=== PATIENT | male | born 1940 | race Two or more races ===

== ENCOUNTER 2025-04-06 19:08 | Inpatient (IN) | payer OTHER ==
[~2025-04-06] VITALS: Ht 182.9 cm; Wt 105.1 kg
[2025-04-06 19:25] VITALS: PULSE 119; RESP 22; O2SAT 91
[2025-04-06 19:51] LABS: Urine Protein, UAD 1+ (Negative); Urine WBC Clumps PRESENT /hpf (None Seen)
[2025-04-06 19:52] LABS: Hematocrit 41.0 % (41.0-53.0); Hemoglobin 13.9 g/dL (13.5-17.5); Mean Corpuscular Hemoglobin 34.8 pg (28.0-32.0); Mean Corpuscular Volume 102.8 fL (80.0-100.0); Nucleated Red Blood Cells % 0.0 %
--- NOTE | 2025-04-06 19:58 | DVH ---
EXAM: XY CHEST PORTABLE CLINICAL HISTORY: SOB TECHNIQUE: Single AP view of the chest WID: COMPARISON: None FINDINGS: Lines and tubes: There is a left-sided dual lead pacemaker with lead tips projecting over the right a trium and right ventricle. Chest: The heart size and pulmonary vasculature is within normal limits. Calcified plaque projects over the aortic arch. No pleural effusion, pneumothorax, or consolidation. The osseous structures are grossly intact. Mild degenerative changes of the bilateral shoulders. Mult ilevel thoracic spondylosis. IMPRESSION: 1. No acute cardiopulmonary abnormality.
[2025-04-06 20:08] LABS: Albumin 3.8 g/dL (3.2-4.8); Alkaline Phosphatase 68 U/L (46-116); Anion Gap 16 (5-15); BUN/Creatinine Ratio 24.8 (10.0-20.0); Calcium 9.3 mg/dL (8.7-10.4); Chloride 103 mmol/L (98-107); Glucose 94 mg/dL (74-106); INR 1.09 (0.9-1.15); Partial Thromboplastin Time 29.0 SEC (24.5-34.5); Prothrombin Time 11.5 sec (9.3-11.8); Sodium 137 mmol/L (136-145); Total Protein 6.9 g/dL (5.7-8.2)
[2025-04-06 20:09] LABS: Bilirubin, Total 1.0 mg/dL (0.2-1.0)
[2025-04-06] MEDS: PIPERACILLIN-TAZOB 3.375GM 100 ML IV ONE (20:09)
[2025-04-06] MEDS: SODIUM CHLORIDE 0.9% 1,000 ML IV ONE (20:10)
[2025-04-06 20:14] LABS: Alanine Aminotransferase < 9 U/L (7-40); Blood Urea Nitrogen 114 mg/dL (9-23); Carbon Dioxide 18 mmol/L (20-31); Potassium 5.1 mmol/L (3.5-5.1)
--- NOTE | 2025-04-06 20:22 | ED.PDOC ---
History of Present Illness HPI Comments 84-year-old male who came to the ER for a lower extremity swelling. Patient does have history of CHF and COPD, status post pacemaker insertion. With a past few weeks noted worsening bipedal edema shortness of breath. Patient hypotensive 69/34 mm Hg and saturating at 80's at 2 lpm. Patient very emotional at this time of care, no further information can be taken from him Chief Complaint: Lower Extremity Time Seen by MD: 20:22 Reviewed Notes: Nurses Notes Allergies: Coded Allergies: NO KNOWN ALLERGIES (Unverified , 04/06/25) Information Source: Patient Mode of Arrival: Wheelchair Severity: Moderate Timing: Weeks Duration: Intermittent Past Medical History PAST MEDICAL HISTORY: CHF, COPD Surgical History: Pacemaker Family History Family History: Reviewed,noncontributory to illness Social History Smoker: Non-Smoker Alcohol: Denies ETOH Use Drugs: Denies Drug Use Lives In: Home Constitutional: denies: chills, diaphoresis, fatigue, fever, malaise, sweats, weakness, others EENTM: denies: blurred vision, double vision, ear bleeding, ear discharge, ear drainage, ear pain, ear ringing, eye pain, eye redness, hearing loss, mouth pain, mouth swelling, nasal discharge, nose bleeding, nose congestion, nose pain, photophobia, tearing, throat pain, throat swelling, voice changes, others Respiratory: denies: cough, hemoptysis, orthopnea, SOB at rest, shortness of breath, SOB with excertion, stridor, wheezing, others Cardiovascular: denies: chest pain, dizzy spells, diaphoresis, Dyspnea on exertion, edema, irregular heart beat, left arm pain, lightheadedness, palpitations, PND, syncope, others Gastrointestinal: denies: abdomen distended, abdominal pain, blood streaked bowels, constipated, diarrhea, dysphagia, difficulty swallowing, hematemesis, melena, nausea, poor appetite, poor fluid intake, rectal bleeding, rectal pain, vomiting, others Genitourinary: denies: burning, dysuria, flank pain, frequency, hematuria, incontinence, penile discharge, penile sore, pain, testicle pain, testicle swelling, urgency, others Neurological: denies: dizziness, fainting, headache, left sided numbness, left sided weakness, numbness, paresthesia, pre-existing deficit, right sided numbness, right sided weakness, seizure, speech problems, tingling, tremors, weakness, others Musculoskeletal: reports: others (bipedal edema); denies: back pain, gout, joint pain, joint swelling, muscle pain, muscle stiffness, neck pain Integumetry: denies: bruises, change in color, change in hair/nails, dryness, laceration, lesions, lumps, rash, wounds, others Allergic/Immunocompromised: denies: Difficulty Healing, Frequent Infections, Hives, Itching, others Hematologic/Lymphatic: denies: anemia, blood clots, easy bleeding, easy bruising, swollen glands, others Endocrine: denies: excessive hunger, excessive sweating, excessive thirst, excessive urination, flushing, intolerance to cold, intolerance to heat, unexplained weight gain, unexplained weight loss, others Psychiatric: denies: anxiety, bipolar disorder, depression, hopeless, panic disorder, schizophrenia, sleepless, suicidal, others Physical Exam General Appearance: No Apparent Distress, Normal HEENT: Normal ENT Inspection, Pharynx Normal, TMs Normal Neck: Full Range of Motion, Non-Tender, Normal, Normal Inspection Respiratory: Chest Non-Tender, Lungs Clear, No Accessory Muscle Use, No Respiratory Distress, Normal Breath Sounds Cardiovascular: No Edema, No JVD, No Murmur, No Gallop, Normal Peripheral Pulses, Regular Rate/Rhythm Breast Exam: Deferred Gastrointestinal: No Organomegaly, Non Tender, No Pulsatile Mass, Normal Bowel Sounds, Soft Genitalia: Deferred Pelvic: Deferred Rectal: Deferred Extremities: Leg edema, Normal capillary refill, Normal range of motion, Non- tender, Pedal edema, Swelling Musculoskeletal : Apperance: Normal Neurologic: Alert, rn enterostomal II-XII nml as Tested, No Motor Deficits, Normal Affect, Normal Mood, No Sensory Deficits Cerebellar Function: Normal Reflexes: Normal Skin: Dry, Normal Color, Warm Lymphatic: No Adenopathy Was a procedure done? Was a procedure done?: No Differential Dx Considerations may include: Congestive heart failure, COPD, cellulitis, sepsis, hypotension X-Ray, Labs, Meds, VS Vital Signs Date Time Temp Pulse Resp B/P (MAP) Pulse Ox O2 Delivery O2 Flow Rate FiO2 04/06/25 20:54 111 04/06/25 19:25 22 91 Nasal Cannula* 4 36 04/06/25 19:25 119 22 91 Nasal Cannula* 4 36 04/06/25 19:25 97.8 119 22 73/52 (59) 91 97.8 04/06/25 19:12 97.0 72 20 69/34 93 97.0 Lab Test 04/06/25 20:28 04/06/25 19:31 04/06/25 19:25 Range/Units Troponin I High Sensitivity 9 9 </=54 ng/L Urine Color Yellow Yellow Urine Clarity Turbid H Clear Urine pH 5.0 5.0-9.0 Urine Specific [place] 1.022 1.001-1.035 Urine Protein 1+ H Negative Urine Ketones Negative Negative Urine Blood 2+ H Negative /uL Urine Nitrite Negative Negative Urine Bilirubin 1+ Negative Urine Urobilinogen 4 H Negative mg/dL Urine Leukocyte Esterase 3+ Negative /uL Urine RBC 102 0 - 3 /hpf Urine WBC Clumps Present None Seen /hpf Urine Microscopic WBC 235 H 0-3 /HPF Urine Squamous Epithelial Cells Few <5 /hpf Urine Bacteria Few H None Seen /hpf Urine Hyaline Casts Many 0 - 2 /lpf Urine Mucus Few None Seen Urine Glucose Normal Normal mg/dL White Blood Count 7.9 4.4-10.8 10^3/uL Red Blood Count 3.99 L 4.5-5.90 10^6/uL Hemoglobin 13.9 13.5-17.5 g/dL Hematocrit 41.0 41.0-53.0 % Mean Corpuscular Volume 102.8 H 80.0-100.0 fL Mean Corpuscular Hemoglobin 34.8 H 28.0-32.0 pg Mean Corpuscular Hemoglobin Concent 33.9 32.0-36.0 g/dL Red Cell Distribution Width 14.3 11.8-14.3 % Platelet Count 197 140-450 10^3/uL Mean Platelet Volume 8.0 6.9-10.8 fL Neutrophils (%) (Auto) 60.9 37.0-80.0 % Lymphocytes (%) (Auto) 24.6 10.0-50.0 % Monocytes (%) (Auto) 8.9 0.0-12.0 % Eosinophils (%) (Auto) 4.6 0.0-7.0 % Basophils (%) (Auto) 1.0 0.0-2.0 % Neutrophils # (Auto) 4.8 1.6-8.6 10 ^3/uL Lymphocytes # (Auto) 2.0 0.4-5.4 10 ^3/uL Monocytes # (Auto) 0.7 0-1.3 10 ^3/uL Eosinophils # (Auto) 0.4 0-0.8 10 ^3/uL Basophils # (Auto) 0.1 0-0.2 10 ^3/uL Nucleated Red Blood Cells 0.0 % Prothrombin Time 11.5 9.3-11.8 sec Prothrombin Time INR 1.09 0.9-1.15 Activated Partial Thromboplast Time 29.0 24.5-34.5 SEC D-Dimer, Quantitative 1.77 H 0.0-0.49 mg/L FEU Sodium Level 137 136-145 mmol/L Potassium Level 5.1 3.5-5.1 mmol/L Chloride Level 103 98-107 mmol/L Carbon Dioxide Level 18 L 20-31 mmol/L Anion Gap 16 H 5-15 Blood Urea Nitrogen 114 *H 9-23 mg/dL Creatinine 4.60 H 0.700-1.30 mg/dL Glomerular Filtration Rate Calc 12 >90 mL/min BUN/Creatinine Ratio 24.8 H 10.0-20.0 Serum Glucose 94 74-106 mg/dL Lactic Acid Level 1.7 0.4-2.0 mmol/L Calcium Level 9.3 8.7-10.4 mg/dL Total Bilirubin 1.0 0.2-1.0 mg/dL Aspartate Amino Transferase (AST) 11 L 13-40 U/L Alanine Aminotransferase (ALT) < 9 7-40 U/L Alkaline Phosphatase 68 46-116 U/L B-Type Natriuretic Peptide 79.14 0-100 pg/mL Total Protein 6.9 5.7-8.2 g/dL Albumin 3.8 3.2-4.8 g/dL Current Medications Medications (Trade) Dose Ordered Sig/Angelito Route Start Time Stop Time Status Last Admin Piperacillin Sod/ Tazobactam Sod 100 ml @ 100 mls/hr ONCE ONCE IV 04/06/25 20:00 04/06/25 20:59 DC 04/06/25 20:09 Sodium Chloride 1,000 ml @ 1,000 mls/hr Q1H ONCE IV 04/06/25 20:00 04/06/25 20:59 DC 04/06/25 20:10 Time of 1ST Reevaluation: 20:18 Reevaluation 1ST: Unchanged Patient Education/Counseling: Diagnosis, Treatment Family Education/Counseling: No Family Present SEPSIS Sepsis Screen Date sepsis recognized/suspect: Apr 06, 2025 Time Sepsis recognized/suspect: 1924 Recent Procedure: No On Antibiotic Therapy: No Respiratory Rate >20: Yes Heart Rate >90: Yes Temp<36 C (96.8 F) or >38.3 C: No SBP <90 or MAP <65 mmHG: No New Acute Mental Status Change: No Is the patient on CPAP, BIPAP,: No Physician Orders Rt Lower Dvt (04/06/25 19:22) Chest Portable (04/06/25 19:22) Electrocardigram (04/06/25 19:22) Blood Culture (04/06/25 19:22) 2 Large Bore Ivs (20mg Or Larg (04/06/25 20:11) Vital Signs Date Time Temp Pulse Resp B/P (MAP) Pulse Ox O2 Delivery O2 Flow Rate FiO2 04/06/25 20:54 111 04/06/25 19:25 22 91 Nasal Cannula* 4 36 04/06/25 19:25 119 22 91 Nasal Cannula* 4 36 04/06/25 19:25 97.8 119 22 73/52 (59) 91 97.8 04/06/25 19:12 97.0 72 20 69/34 93 97.0 Laboratory Tests Test 04/06/25 19:25 Lactic Acid Level 1.7 mmol/L (0.4-2.0) White Blood Count 7.9 10^3/uL (4.4-10.8) Medications Medications Dose Ordered Sig/Angelito Route Start Time Stop Time Status Last Admin Dose Admin Piperacillin Sod/ Tazobactam Sod 100 ml @ 100 mls/hr ONCE ONCE IV 04/06/25 20:00 04/06/25 20:59 DC 04/06/25 20:09 Sodium Chloride 1,000 ml @ 1,000 mls/hr Q1H ONCE IV 04/06/25 20:00 04/06/25 20:59 DC 04/06/25 20:10 Departure 1 Departure Time of Disposition: 21:23 Impression: Primary Impression: Acute renal failure Additional Impressions: Atrial fibrillation Urinary tract infection Disposition: 09 ADMITTED INPATIENT Admit to: Tele Condition: Guarded Comments 84-year-old male coming from home with generalized weakness and shortness of breath. Patient noted to be in atrial fibrillation. On lab review he has acute renal failure with BUN high at 114 and creatinine elevated 4.6. Potassium is upper limits of normal 5.1. Urinalysis looks like he has a UTI. Patient was given IV fluids and IV antibiotics. Patient will need to be admitted for supportive care and further workup. Critical Care Note Critical Care Time?: Yes (35 min-critical care time only) Critical care comment: Hypotension Total critical care time: Approximately 36 minutes Due to a high probability of clinically significant, life threatening deterioration, the patient required my highest level of preparedness to intervene emergently and I personally spent this critical care time directly and personally managing the patient. This critical care time included obtaining a history; examining the patient; pulse oximetry; ordering and review of studies; arranging urgent treatment with development of a management plan; evaluation of patient's response to treatment; frequent reassessment; and, discussions with other providers. This critical care time was performed to assess and manage the high probability of imminent, life-threatening deterioration that could result in multi-organ failure. It was exclusive of separately billable procedures and treating other patients. Stability Stability form required: No Heart Score Heart Score: Heart Score Response (Comments) Value History Slightly Suspicious 0 EKG Repolarization Disturb 1 Age >65 2 Risk Factors 1 or 2 risk factors 1 Troponin Normal limit 0 Total 4 I personally scribed for GAYLE ALMARAZ MD ([email or web address]) on 04/06/25 at 20:22. Electronically submitted by Fred Cui ([email or web address]). GAYLE ALMARAZ MD Apr 06, 2025 20:22
--- NOTE | 2025-04-06 20:34 | DVH ---
Right lower extremity venous duplex Clinical History: RLE swelling Comparison: None Technique: Duplex Doppler evaluation of the deep venous system of the right lower extremity from the common femo ral vein to the popliteal vein including color Doppler and spectral/pulsed waveform analysis was perf ormed. Findings: The common femoral vein demonstrates appropriate compressibility and waveform variability. There is compressibility/patency of the great saphenous vein at the proximal thigh. The femoral vein demonstrates appropriate compressibility and waveform variability. The deep femoral vein demonstrates appropriate compressibility and waveform variability. The popliteal vein demonstrates appropriate compressibility and waveform variability. There is normal compressibility at the tibioperoneal trunk. Prominent right groin lymph node measuring 3.2 cm with normal morphology, likely reactive. 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 Impression: No right femoropopliteal venous thrombosis. Rounded vascular structure in the popliteal fossa possibly representing a popliteal artery aneurysm o r pseudoaneurysm. CT angiogram would better assess.
[2025-04-06] MEDS ORDERED: ONDANSETRON HCL 4 MG/2 ML VIAL IV PRN ×2 (22:00)
[2025-04-06] MEDS ORDERED: MORPHINE SULFATE INJ 2 MG/ml SYRG IV PRN ×2 (22:00)
[2025-04-06] MEDS ORDERED: ACETAMINOPHEN 325 MG TAB PO PRN (22:00)
--- NOTE | 2025-04-06 22:08 | DVHHPRES ---
History of Present Illness Resident Creating Document: GIACOMO ANTHONY History of Present Illness Darian Curran is a 84-year-old male patient who presents to ED with chief complaint of nonhealing bilateral lower limb wounds (right worse than left), generalized weakness, confusion and dyspnea in variable functional class which has progressively worsened in the past three weeks. Daughter came to visit father and saw lower limbs, prompting the visit to the ED. Patient was on p.o. diuretics (Lasix), with reduced oral intake of food and liquids in the past three weeks (patient believes is secondary to adverse effect of radiotherapy since it is harder for him to swallow). Patient reports history of bladder cancer, only had one visit with urologist who completed laser surgery of bladder, but did not have follow up for over a year. Patient also reports history of DVT in right lower extremity, he is currently on Eliquis. Denies any other associated symptoms including chest pain, nausea, vomiting, diarrhea. 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 [id number] is daughter). Ex tobacco abuse (50 pack-year history of smoking), quit in 2009. Denies current tobacco, alcohol and other drug abuse. Allergies: Denies Home medication: Apixaban, metoprolol, colchicine, vitamin B12, Trelegy, tamsu losin, finasteride, lisinopril, furosemide, potassium chloride, levothyroxine Patient seen and examined at bedside. Currently in ICU status due to persistently low blood pressure. Patient will be admitted for further management. Past Medical History Per HPI Past Surgical History Per HPI Family History Per HPI Past Social History Per HPI Review of Systems Review of Systems Per HPI Allergies: Coded Allergies: NO KNOWN ALLERGIES (Unverified , 04/06/25) Exam Vital Signs Vital Signs Date Time Temp Pulse Resp B/P (MAP) Pulse Ox O2 Delivery O2 Flow Rate FiO2 04/06/25 20:54 111 04/06/25 19:25 22 91 Nasal Cannula* 4 36 04/06/25 19:25 97.8 73/52 (59) 97.8 Exam Patient lying in bed, in no acute distress General: Lucid, afebrile, mucosae are moist Cardiovascular: Normal S1 and S2. No murmurs, gallops or rubs Respiratory: Normal ventilation mechanics. Clear lung sounds on auscultation Abdomen: Soft, suprapubic tenderness on palpation, rest of abdomen nontender, no organomegaly, normal bowel sounds MSK/skin: Mobilizes 4 limbs. Skin is dry and warm. Erythematous bilateral lower limbs, exophytic growth in right hallux, unkempt. Nontender hard lymph nodes in bilateral inguinal region. Neurological: Oriented in 3 spheres. No motor no sensitive deficits. Pupils are isocoric and reactive Labs/Xrays Labs Test 04/06/25 20:28 04/06/25 19:31 04/06/25 19:25 Range/Units Troponin I High Sensitivity 9 </=54 ng/L Urine Color Yellow Yellow Urine Clarity Turbid H Clear Urine pH 5.0 5.0-9.0 Urine Specific [place] 1.022 1.001-1.035 Urine Protein 1+ H Negative Urine Ketones Negative Negative Urine Blood 2+ H Negative /uL Urine Nitrite Negative Negative Urine Bilirubin 1+ Negative Urine Urobilinogen 4 H Negative mg/dL Urine Leukocyte Esterase 3+ Negative /uL Urine RBC 102 0 - 3 /hpf Urine WBC Clumps Present None Seen /hpf Urine Microscopic WBC 235 H 0-3 /HPF Urine Squamous Epithelial Cells Few <5 /hpf Urine Bacteria Few H None Seen /hpf Urine Hyaline Casts Many 0 - 2 /lpf Urine Mucus Few None Seen Urine Glucose Normal Normal mg/dL White Blood Count 7.9 4.4-10.8 10^3/uL Red Blood Count 3.99 L 4.5-5.90 10^6/uL Hemoglobin 13.9 13.5-17.5 g/dL Hematocrit 41.0 41.0-53.0 % Mean Corpuscular Volume 102.8 H 80.0-100.0 fL Mean Corpuscular Hemoglobin 34.8 H 28.0-32.0 pg Mean Corpuscular Hemoglobin Concent 33.9 32.0-36.0 g/dL Red Cell Distribution Width 14.3 11.8-14.3 % Platelet Count 197 140-450 10^3/uL Mean Platelet Volume 8.0 6.9-10.8 fL Neutrophils (%) (Auto) 60.9 37.0-80.0 % Lymphocytes (%) (Auto) 24.6 10.0-50.0 % Monocytes (%) (Auto) 8.9 0.0-12.0 % Eosinophils (%) (Auto) 4.6 0.0-7.0 % Basophils (%) (Auto) 1.0 0.0-2.0 % Neutrophils # (Auto) 4.8 1.6-8.6 10 ^3/uL Lymphocytes # (Auto) 2.0 0.4-5.4 10 ^3/uL Monocytes # (Auto) 0.7 0-1.3 10 ^3/uL Eosinophils # (Auto) 0.4 0-0.8 10 ^3/uL Basophils # (Auto) 0.1 0-0.2 10 ^3/uL Nucleated Red Blood Cells 0.0 % Prothrombin Time 11.5 9.3-11.8 sec Prothrombin Time INR 1.09 0.9-1.15 Activated Partial Thromboplast Time 29.0 24.5-34.5 SEC D-Dimer, Quantitative 1.77 H 0.0-0.49 mg/L FEU Sodium Level 137 136-145 mmol/L Potassium Level 5.1 3.5-5.1 mmol/L Chloride Level 103 98-107 mmol/L Carbon Dioxide Level 18 L 20-31 mmol/L Anion Gap 16 H 5-15 Blood Urea Nitrogen 114 *H 9-23 mg/dL Creatinine 4.60 H 0.700-1.30 mg/dL Glomerular Filtration Rate Calc 12 >90 mL/min BUN/Creatinine Ratio 24.8 H 10.0-20.0 Serum Glucose 94 74-106 mg/dL Lactic Acid Level 1.7 0.4-2.0 mmol/L Calcium Level 9.3 8.7-10.4 mg/dL Total Bilirubin 1.0 0.2-1.0 mg/dL Aspartate Amino Transferase (AST) 11 L 13-40 U/L Alanine Aminotransferase (ALT) < 9 7-40 U/L Alkaline Phosphatase 68 46-116 U/L B-Type Natriuretic Peptide 79.14 0-100 pg/mL Total Protein 6.9 5.7-8.2 g/dL Albumin 3.8 3.2-4.8 g/dL SEPSIS Sepsis Screen Date sepsis recognized/suspect: Apr 06, 2025 Time Sepsis recognized/suspect: 1924 Recent Procedure: No On Antibiotic Therapy: No Respiratory Rate >20: Yes Heart Rate >90: Yes Temp<36 C (96.8 F) or >38.3 C: No SBP <90 or MAP <65 mmHG: No New Acute Mental Status Change: No Is the patient on CPAP, BIPAP,: No Physician Orders Rt Lower Dvt (04/06/25:) Chest Portable (04/06/25:) Electrocardigram (04/06/25:) Blood Culture (04/06/25:) 2 Large Bore Ivs (20mg Or Larg (04/06/25 20:11) Admit (04/06/25:52) Code Status (04/06/25:52) Acetaminophen Tablet (Tylenol Tablet) (04/06/25 22:00) Ondansetron Hcl (Zofran) (04/06/25 22:00) Complete Blood Count (04/07/25 04:00) Comprehensive Metabolic Panel (04/07/25 04:00) Npo (Nothing By Mouth) Diet (04/07/25 Breakfast) Echo 2d Mode Cardiac Dop (04/06/25:) Morphine Sulfate Injection (04/06/25 22:00) Oxygen By Nasal Cannula (04/06/25:) Stat Ekg For Chest Pain (04/06/25:) Notify Of Changes From Base (04/06/25:) Wiping Cloth Cutter For 24 Hours (04/06/25:52) Emergency Dysrhythmia Protocol (04/06/25:) Rhythm Strips Once Every Shift (04/06/25:52) Admit (04/06/25:52) Code Status (04/06/25:52) Acetaminophen Tablet (Tylenol Tablet) (04/06/25 22:00) Ondansetron Hcl (Zofran) (04/06/25 22:00) Oxygen By Nasal Cannula (04/06/25:52) Stat Ekg For Chest Pain (04/06/25:52) Notify Of Changes From Base (04/06/25:) Wiping Cloth Cutter For 24 Hours (04/06/25:) Emergency Dysrhythmia Protocol (04/06/25:) Rhythm Strips Once Every Shift (04/06/25:52) Vitamin D, 25-Hydroxy (04/06/25:) Vitamin B12 (04/06/25:) Thyroid Stimulating Hormone (04/06/25:) Phosphorus (04/06/25:) Magnesium (04/06/25:) Lipase (04/06/25:) Lipid Panel (04/06/25:) Hemoglobin A1c (04/06/25:) Drug Screen (04/06/25:) C-Reactive Protein (04/06/25:) *[facility] (04/06/25:) Urine Bacterial Culture (04/06/25:) Respiratory Culture W/ Gs (04/06/25:52) Zosyn Extended Infusion (04/06/25 22:00) Vital Signs Date Time Temp Pulse Resp B/P (MAP) Pulse Ox O2 Delivery O2 Flow Rate FiO2 04/06/25 20:54 111 04/06/25 19:25 22 91 Nasal Cannula* 4 36 04/06/25 19:25 119 22 91 Nasal Cannula* 4 36 04/06/25 19:25 97.8 119 22 73/52 (59) 91 97.8 04/06/25 19:12 97.0 72 20 69/34 93 97.0 Laboratory Tests Test 04/06/25 19:25 Lactic Acid Level 1.7 mmol/L (0.4-2.0) White Blood Count 7.9 10^3/uL (4.4-10.8) Medications Medications Dose Ordered Sig/Angelito Route Start Time Stop Time Status Last Admin Dose Admin Piperacillin Sod/ Tazobactam Sod 100 ml @ 100 mls/hr ONCE ONCE IV 04/06/25 20:00 04/06/25 20:59 DC 04/06/25 20:09 100 MLS/HR Sodium Chloride 1,000 ml @ 1,000 mls/hr Q1H ONCE IV 04/06/25 20:00 04/06/25 20:59 DC 04/06/25 20:10 1,000 MLS/HR Assessment/Plan Assessment/Plan ASSESSMENT Septic shock secondary to bilateral lower limb cellulitis versus UTI CHAIM hemodynamically mediated (VMN) on CKD Metabolic encephalopathy secondary to sepsis versus uremia Acute on chronic hypoxic respiratory failure (home oxygen 2 L/min) Metabolic acidosis with increased anion gap Hyperlacticacidemia Bilateral lower limb cellulitis Complicated UTI Macrocytic anemia Ruled out bilateral lower limb DVT Questionable popliteal aneurysm versus pseudo aneurysm Skin cancer on bilateral ears status post radiotherapy (22 sessions) Bladder cancer status post laser therapy PLAN Indicated IV fluids with no response, currently on IV vasopressors and in ICU status. Consulted nephrology and urology specialist Have discussed with patient possibility of requiring hemodialysis session if he does not respond to conservative treatment. Patient and family we will make decision on hemodialysis per Nephrology specialist recommendation. Wound care on board Currently under empiric IV antibiotic (meropenem and linezolid). Ordered pancultures (blood, urine, wound and sputum). Ordered MRSA, COVID and influenza swab. Patient currently on heparin 5000 units b.i.d. subcutaneous. Ordered arterial duplex of lower limbs to evaluate popliteal aneurysm versus pseudoaneurysm. Can not ordered CT Angio due to kidney function. Ordered abdomen and pelvis CT to evaluate bladder cancer. Goals of care discussed with patient for over 24 minutes: DNR/DNI, does accept ACLS medication/vasopressors (modified). Discussed plan with Dr. Draper, patient, family and nurses: Patient admitted to ICU due to requirement of IV vasopressors. He is a DNI/DNR (modified since he does accept ACLS drugs and vasopressors). Consulted Urology and Nephrology specialist for management of his critical condition. Pending culture and swab results. Currently under empiric IV antibiotics and IV fluids. Patient has poor prognosis. Plan discussed with: Patient, Other (Nurses) My Orders Orders - GIACOMO ANTHONY RESIDENT Procedure Category Date Status Time Admit ADMIT 04/06/25 Verified 21:52 Code Status CODE 04/06/25 Verified 21:52 Acetaminophen Tablet PHA 04/06/25 Verified (Tylenol Tablet) 22:00 Ondansetron Hcl PHA 04/06/25 Verified (Zofran) 22:00 Complete Blood Count LAB 04/07/25 Verified 04:00 Comprehensive LAB 04/07/25 Verified Metabolic Panel 04:00 Npo (Nothing By DIET 04/07/25 Verified Mouth) Diet Breakfast Echo 2d Mode Cardiac US 04/06/25 Verified DOP 21:52 Morphine Sulfate PHA 04/06/25 Verified Injection 22:00 Oxygen By Nasal RT 04/06/25 Verified Cannula 21:52 Stat Ekg For Chest [facility] 04/06/25 Verified Pain 21:52 Notify Md Of Changes [facility] 04/06/25 Verified From Base 21:52 Wiping Cloth Cutter For [facility] 04/06/25 Verified 24 Hours 21:52 Emergency Dysrhythmia [facility] 04/06/25 Verified Protocol 21:52 Rhythm Strips Once [facility] 04/06/25 Verified Every Shift 21:52 Admit ADMIT 04/06/25 Verified 21:52 Code Status CODE 04/06/25 Verified 21:52 Acetaminophen Tablet PHA 04/06/25 Verified (Tylenol Tablet) 22:00 Ondansetron Hcl PHA 04/06/25 Verified (Zofran) 22:00 Oxygen By Nasal RT 04/06/25 Verified Cannula 21:52 Stat Ekg For Chest [facility] 04/06/25 Verified Pain 21:52 Notify Md Of Changes [facility] 04/06/25 Verified From Base 21:52 Wiping Cloth Cutter For [facility] 04/06/25 Verified 24 Hours 21:52 Emergency Dysrhythmia [facility] 04/06/25 Verified Protocol 21:52 Rhythm Strips Once [facility] 04/06/25 Verified Every Shift 21:52 Vitamin D, 25-Hydroxy LAB 04/06/25 Verified 21:52 Vitamin B12 LAB 04/06/25 Verified 21:52 Thyroid Stimulating LAB 04/06/25 Verified Hormone 21:52 Phosphorus LAB 04/06/25 Verified 21:52 Magnesium LAB 04/06/25 Verified 21:52 Lipase LAB 04/06/25 Verified 21:52 Lipid Panel LAB 04/06/25 Verified 21:52 Hemoglobin A1c LAB 04/06/25 Verified 21:52 Drug Screen LAB 04/06/25 Verified 21:52 C-Reactive Protein LAB 04/06/25 Verified 21:52 *[facility] CONS 04/06/25 Verified -[place] 21:52 Urine Bacterial DEANDRE 04/06/25 Verified Culture 21:52 Respiratory Culture DEANDRE 04/06/25 Verified W/ Gs 21:52 Zosyn Extended PHA 04/06/25 Verified Infusion 22:00 Date of Service: Apr 06, 2025 Billing Provider: EMIL DRAPER MD Common Visit Codes: [id number] INP/OBS CARE (HIGH) Secondary Visit Codes: [id number] CARE PLAN 30 MINUTES GIACOMO ANTHONY RESIDENT Apr 06, 2025 22:08
[2025-04-06 22:53] LABS: Magnesium 2.5 mg/dL (1.6-2.6)
[2025-04-06 22:53] LABS: Opiate Scree,Urine Neg (NEGATIVE)
[2025-04-06 22:54] LABS: Cholesterol 148.0 mg/dL (< 200)
[2025-04-06 23:03] LABS: Amphetamine Screen, Urine Neg (NEGATIVE); Barbiturate Scree,Urine Neg (NEGATIVE); Benzodiazephine Screen, Urine Neg (NEGATIVE); Cannabinoid Screen, Urine Neg (NEGATIVE); Cocaine Screen, Urine Neg (NEGATIVE); Phencyclidine Screen, Urine Neg (NEGATIVE)
[2025-04-06 23:03] LABS: HDL Cholesterol 30.0 mg/dL (40-59); Triglycerides 202.0 mg/dL (< 150)
[2025-04-07] VITALS (82 sets, daily range): BP systolic 79–138; BP diastolic 39–73; PULSE 88–144; RESP 11–26; TEMP 98–99.3; O2SAT 85–100
[2025-04-07] MEDS: SODIUM CHLORIDE 0.9% 1,000 ML IV ONE
[2025-04-07] MEDS: SODIUM CHLORIDE 0.9% 1,000 ML IV SCH
[2025-04-07 00:17] LABS: Lipase 33.0 U/L (12-53)
--- NOTE | 2025-04-07 01:17 | DVH ---
Exam: CT CT AB PEL WO CON-NO ORAL OR IV History: Bladder cancer Comparison Study: None Technique: Multidetector spiral CT of the abdomen was performed from lung bases to pubic symphysis. I maging was performed without IV contrast. Axial, coronal and sagittal multiplanar reformats were obta ined from the axial data set by the technologist. Radiation Dose : 1. Abdomen/Pelvis: CTDIvol 20.15 mGy, DLP 1152.57 mGy*cm. Findings: Evaluation of solid organs is limited due to lack of intravenous contrast use. Lung Bases: No acute or significant lung base finding. Normal heart size. No pleural or pericardial effusion. Liver: The liver is normal in size. No focal lesions. Gallbladder and Biliary Tree: Few calcified gallstones in the gallbladder Spleen: Unremarkable Pancreas: The pancreas is grossly normal in appearance. Adrenal Glands: Hypodense right adrenal nodule measuring 1.6 cm, likely adenoma. Kidneys: Few small nonobstructing bilateral renal calculi. No hydronephrosis. Bladder: Coarse calcification measuring 1.6 cm adjacent to the right UVJ. No hydronephrosis. Bowel: The stomach is grossly normal in appearance. Small bowel and colon are normal in caliber and d istribution. The appendix is not visualized; however, no secondary findings of acute appendicitis rigo ntified. Colonic diverticulosis. Ascites: Absent Lymphadenopathy: Few enlarged lymph nodes in the right groin measuring up to 1.7 cm short axis. Abdominal Wall and Mesentery: Unremarkable. Vasculature: Diffuse aortoiliac vascular calcifications. 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 Pelvic Organs: Prostate gland is mildly enlarged. Musculoskeletal: No aggressive focal bony lesions, acute fractures or dislocation. IMPRESSION: Coarse intraluminal bladder calcification. Otherwise no clear malignancy in the bladder. No evidence for metastatic disease within limits of unenhanced CT. Radiation optimization: All CT scans at this facility use at least one of these dose optimization zoë hniques: automated exposure control mA and/or kV adjustment per patient size (includes targeted exam s where dose is matched to clinical indication) or iterative reconstruction.
[2025-04-07] MEDS: NOREPINEPHRINE 8 MG/250ML KIT 250 ML IV SCH (04:15)
[2025-04-07] MEDS: HYDROmorphone HCL 2 MG/ML VL/or syr IV PRN (04:21)
[2025-04-07 04:38] LABS: Albumin 3.5 g/dL (3.2-4.8); Alkaline Phosphatase 59 U/L (46-116); Anion Gap 14 (5-15); BUN/Creatinine Ratio 22.3 (10.0-20.0); Bilirubin, Total 1.1 mg/dL (0.2-1.0); Calcium 8.9 mg/dL (8.7-10.4); Glucose 99 mg/dL (74-106); Potassium 4.9 mmol/L (3.5-5.1); Sodium 139 mmol/L (136-145); Total Protein 6.5 g/dL (5.7-8.2)
[2025-04-07 04:45] LABS: Hematocrit 38.5 % (41.0-53.0); Hemoglobin 13.2 g/dL (13.5-17.5); Mean Corpuscular Hemoglobin 35.0 pg (28.0-32.0); Mean Corpuscular Volume 102.4 fL (80.0-100.0); Nucleated Red Blood Cells % 0.2 %
[2025-04-07 04:52] LABS: Alanine Aminotransferase < 9 U/L (7-40); Blood Urea Nitrogen 74 mg/dL (9-23); Carbon Dioxide 15 mmol/L (20-31); Chloride 110 mmol/L (98-107)
[2025-04-07] MEDS ORDERED: MEROPENEM 1GM IVPB 50 ML IV SCH (06:00)
[2025-04-07 06:37] LABS: Urine Budding Yeast OCCASIONAL /hpf (None Seen); Urine Protein, UAD TRACE (Negative)
[2025-04-07] MEDS ORDERED: DOCUSATE SOD 100 MG CAP PO PRN (08:30)
--- NOTE | 2025-04-07 08:53 | DVHPNRES ---
Progress Note Date Seen: Apr 07, 2025 Resident Creating Document: NIR ANDRES RESIDENT Medical Necessity Reason Pt with a Central, PICC or Fol: Yes The following are medically ne: Peters Catheter Reason for peters catheter: Strict I&O Subjective Review of Systems History of present illness Darian Curran is a 84-year-old male patient who presents to ED with chief complaint of nonhealing bilateral lower limb wounds (right worse than left), generalized weakness, confusion and dyspnea in variable functional class which has progressively worsened in the past three weeks. Daughter came to visit father and saw lower limbs, prompting the visit to the ED. Patient was on p.o. diuretics (Lasix), with reduced oral intake of food and liquids in the past three weeks (patient believes is secondary to adverse effect of radiotherapy since it is harder for him to swallow). Patient reports history of bladder cancer, only had one visit with urologist who completed laser surgery of bladder, but did not have follow up for over a year. Patient also reports history of DVT in right lower extremity, he is currently on Eliquis. Denies any other associated symptoms including chest pain, nausea, vomiting, diarrhea. 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 [id number] is daughter). Ex tobacco abuse (50 pack-year history of smoking), quit in 2009. Denies current tobacco, alcohol and other drug abuse. Allergies: Denies Home medication: Apixaban, metoprolol, colchicine, vitamin B12, Trelegy, tamsulosin, finasteride, lisinopril, furosemide, potassium chloride, levothyroxine 04/07/2025 Patient seen and examined at bedside Patient is currently on 2 L/min of oxygen through nasal cannula Mentioned no other complaint Family was called and explained in details about the condition of the patient and discussed code status with the family as per patient request. Patient's family decided for DNR/DNI but mentioned that other treatment modalities including dialysis if needed, antibiotics should be continued. Patient is currently on norepinephrine at 6 which was later reduced to 4 cc/hr Objective vital signs Vital Sign Date Time Temp Pulse Resp B/P (MAP) Pulse Ox O2 Delivery O2 Flow Rate FiO2 04/07/25 07:30 121 19 89/41 (57) 94 04/07/25 06:00 Nasal Cannula* 2 28 04/07/25 04:49 98.0 98.0 Total Intake and Output 04/06/25 04/06/25 04/07/25 15:00 23:00 07:00 Intake Total 1100 ml 307.50 ml Output Total 475 ml Balance 1100 ml -167.50 ml medications Current Medications Medications Dose Ordered Sig/Angelito Route Start Time Stop Time Status Last Admin Dose Admin Acetaminophen 325 mg Q4HP PRN PO 04/06/25 22:00 Ondansetron HCl 4 mg Q4HP PRN IV 04/06/25 22:00 Linezolid 300 ml @ 150 mls/hr Q12HR IV 04/07/25 10:00 Meropenem 50 ml @ 17 mls/hr Q8HR IV 04/07/25 06:00 UNV Sodium Chloride 1,000 ml @ 75 mls/hr [id number] IV 04/07/25 00:00 04/07/25 00:00 75 MLS/HR Meropenem 50 ml @ 17 mls/hr Q12HR IV 04/07/25 10:00 Hydromorphone HCl 0.5 mg Q4HPRN PRN IV 04/07/25 00:45 04/07/25 04:21 0.5 MG Norepinephrine Bitartrate 250 ml @ 3.75 mls/hr Q24H IV 04/07/25 04:15 04/07/25 04:15 3.75 MLS/HR Examination Examination General Appearance: Alert, Oriented X3, Cooperative, No acute distress HEENT: EOMI Respiratory: Clear to auscultation, Normal air movement on 2 L/min of oxygen Cardiovascular: Regular rate, Normal S1, Normal S2 Abdominal: Normal bowel sounds Extremities: Fungating mass at right great toe, wound seeping fluid on the posterior surface of the right leg Skin: No rashes, No breakdown Neuro: Normal speech and tone Patient has difficulty in hearing laboratory and microbiology Laboratory Tests 04/07/25 03:38 Test 04/07/25 03:38 Range/Units Serum Glucose 99 74-106 mg/dL Labs and/or images reviewed: Labs reviewed by me, Image(s) reviewed by me Problem List/Assessment/Plan Problem List/Assessment/Plan Assessment and Plan # metabolic encephalopathy due to sepsis, improving Head CT # Sepsis with septic shock , source, questionable UTI, leg wound ulcer, infected -IV fluids Currently on norepinephrine drip MRSA screen Blood culture Urine culture Wound culture Wound care Lactic acid # ?bilateral lower leg cellulitis # leg wound ulcer, right-sided posterior surface, ? Infected IV antibiotics Wound culture # CHAIM and CKD due to vasomotor nephropathy due to sepsis IV fluid Nephrology consulted # Acute on chronic hypoxic respiratory failure (home oxygen 2 L/min) -breathing treatments p.r.n. 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 #DVT prophylaxis -heparin Family was called and explained in details about the condition of the patient and discussed code status with the family as per patient request. Patient's family decided for DNR/DNI but mentioned that other treatment modalities including dialysis if needed, antibiotics should be continued. Code status discussed with the family for 20 minutes, chemical code 120 minutes of critical care time excluding procedures Case discussion with Dr Callahan Plan discussed with: Patient, Son, Other (RN) My Orders My Orders Orders - NIR ANDRES Procedure Category Date Status Time Pantoprazole PHA 04/07/25 Verified (Protonix) 10:00 Docusate Sodium PHA 04/07/25 Verified Capsule (Colace 08:30 Critical Care Time (mins): 120 Addendum Addendum Addendum I was physically present for the roman portions of the service provided to patient by THE RESIDENT. I have reviewed the documentation, discussed the case with resident and agree with the resident's documentation except as noted. Also the patient's clinical case was discussed with the patient's nurse. This medical document was created using an electronic medical record system with computerized dictation system. Although this document has been carefully reviewed, there might still be some phonetic and typographical errors. These areas are purely typographical due to imperfections of the software programs, and do not reflect any compromise in the patient's medical care. Late signature. Date of Service: Apr 07, 2025 Billing Provider: DON CALLAHAN MD Common Visit Codes: [id number] CARE 30-74 MIN (120 minutes), [id number] CARE-EACH +30MIN Secondary Visit Codes: [id number] CARE PLAN 30 MINUTES (20 minutes) NIR ANDRES RESIDENT Apr 07, 2025 08:53 DON CALLAHAN MD Apr 08, 2025 13:16
[2025-04-07] MEDS ORDERED: PIPERACILLIN-TAZOB 3.375GM 100 ML IV SCH (09:00)
[2025-04-07] MEDS: LEVOTHYROXINE SODIUM 50 MCG TAB PO ONE (10:15)
[2025-04-07] MEDS: PANTOPRAZOLE 40 MG/10 ML VIAL INJ IV SCH (10:30)
[2025-04-07] MEDS: SODIUM CHLORIDE 0.9% 500 ML IV ONE ×3 (10:31→21:15)
[2025-04-07] MEDS: LINEZOLID 600MG/300ML 300 ML IV SCH (10:31)
[2025-04-07] MEDS: MEROPENEM 500MG IVPB 50 ML IV SCH (10:31)
--- NOTE | 2025-04-07 10:45 | DVH ---
INDICATION: CHAIM TECHNIQUE: Multiple real-time sonographic images of the kidneys and bladder were obtained. COMPARISON: None FINDINGS: RIGHT kidney measures 11.3 CM cm in length. NO hydronephrosis. LEFT kidney measures 11.5 cm in length. NO hydronephrosis. No large intraluminal masses are seen in the bladder. PREVOID BLADDER VOLUME 30.4 ML BOOKER CATHETER IN THE BLADDER IMPRESSION: 1. 11.37 CM LONG RIGHT KIDNEY ; 11.5 CM LONG LEFT KIDNEY. 2. BOOKER CATHETER IN PLACE
--- NOTE | 2025-04-07 13:27 | DVH ---
BILATERAL Lower Extremity Arterial Duplex Date: 04/07/2025 10:50 AM Clinical History: R/o Pseudoaneurysm Comparison: None Technique: Duplex Doppler evaluation including color Doppler and spectral/pulsed waveform analysis of the lower extremity arteries was performed. Finding: RIGHT: Peak systolic velocities are as follows: TYPING BOOKKEEPER 116 cm/s triphasic waveform Deep femoral 54 cm/s triphasic wave SFA proximal 109 cm/s triphasic waveform SFA mid-portion 104 cm/s triphasic waveform SFA distal 138 cm/s triphasic waveform Popliteal 79 cm/s triphasic waveform possible pseudoaneurysm in the proximal popliteal artery measuri ng 0.82 cm Posterior tibial 75 cm/s monophasic waves Anterior tibial 34 cm/s monophasic waveform Dorsalis pedis 37 cm/s monophasic waveform The waveforms are triphasic waveform through the right popliteal artery with monophasic waveform belo w the popliteal artery LEFT: Peak systolic velocities are as follows: TYPING BOOKKEEPER 111 cm/s triphasic waveform Deep femoral 42 cm/s triphasic waveform SFA proximal 94 cm/s triphasic waveform SFA mid-portion 109 cm/s triphasic waveform SFA distal 108 cm/s triphasic waveform Popliteal 85 cm/s triphasic waveform Posterior tibial 76 cm/s monophasic waveform Anterior tibial 58 cm/s monophasic waveform Dorsalis pedis 47 cm/s monophasic waveform The waveforms are triphasic waveform through the popliteal artery. Monophasic waveform distal to the popliteal artery. REFERENCE VALUES, [facility]) vascular Imaging Lab Criteria: Peak systolic velocity ranges (in cm/sec) are as follows: <150 cm/s - <20 % stenosis 150-200 cm/s - 20-49% stenosis 200-300 cm/s - 50-75% stenosis >300 cm/s -> 75% stenosis IMPRESSION: 1. There is no evidence for peripheral vascular insufficiency in the right lower extremity. Possible pseudo aneurysm in the distal superficial femoral artery proximal popliteal artery measuring 0.82 cm 2. There is no evidence for peripheral vascular insufficiency in the left lower extremity. 3. No significant focal stenosis is identified.
--- NOTE | 2025-04-07 15:43 | DVHINCON2 ---
Date of service: Apr 07, 2025 Referring Physician Winifred Connelly MD Reason for Consultation CHAIM History of Present Illness Mr. Curran is a 84-year-old male with known history of extensive cardiac history, hypertension, dyslipidemia, COPD presented for further evaluation and management of bilateral lower extremity wounds. Current consultation requested due to elevated serum creatinine to the four range upon admission. He was seen in the [facility], resting comfortably. He has an indwelling Baptiste catheter in place currently. Most of the history was obtained through the chart. Past Medical History Hypertension Dyslipidemia Coronary artery disease History of bladder cancer Prior history of lower extremity DVT Allergies: Coded Allergies: NO KNOWN ALLERGIES (Unverified , 04/06/25) Current Medications Current Medications Medications (Trade) Dose Ordered Sig/Angelito Route PRN Reason Start Time Stop Time Status Last Admin Acetaminophen (Tylenol Tablet) 325 mg Q4HP PRN PO MILD PAIN (1-3 PAIN SCALE) 04/06/25 22:00 Ondansetron HCl (Zofran) 4 mg Q4HP PRN IV NAUSEA / VOMITING 04/06/25 22:00 Morphine Sulfate 2 mg Q4HPRN PRN IV SEVERE PAIN (7-10 PAIN SCALE) 04/06/25 22:00 04/07/25 00:46 DC Acetaminophen (Tylenol Tablet) 325 mg Q4HP PRN PO MILD PAIN (1-3 PAIN SCALE) 04/06/25 22:00 04/06/25 22:40 DC Ondansetron HCl (Zofran) 4 mg Q4HP PRN IV NAUSEA / VOMITING 04/06/25 22:00 04/06/25 22:40 DC Morphine Sulfate 2 mg Q4HPRN PRN IV SEVERE PAIN (7-10 PAIN SCALE) 04/06/25 22:00 04/06/25 22:40 DC Piperacillin Sod/ Tazobactam Sod 100 ml @ 25 mls/hr Q12HR IV 04/07/25 09:00 04/06/25 23:57 DC Linezolid 300 ml @ 150 mls/hr Q12HR IV 04/07/25 10:00 04/07/25 10:31 Meropenem 50 ml @ 17 mls/hr Q8HR IV 04/07/25 06:00 UNV Sodium Chloride 1,000 ml @ 75 mls/hr [id number] IV 04/07/25 00:00 04/07/25 00:00 Meropenem 50 ml @ 17 mls/hr Q12HR IV 04/07/25 10:00 04/07/25 10:31 Hydromorphone HCl (Dilaudid Injection) 0.5 mg Q4HPRN PRN IV PAIN SCALE 7 THRU 10 04/07/25 00:45 04/07/25 10:30 Norepinephrine Bitartrate 250 ml @ 3.75 mls/hr Q24H IV 04/07/25 04:15 04/07/25 04:15 Pantoprazole Sodium (Protonix) 40 mg DAILY IV 04/07/25 10:00 04/07/25 10:30 Docusate Sodium (Colace Capsule) 100 mg BIDPRN PRN PO FOR CONSTIPATION 04/07/25 08:30 Levothyroxine Sodium (Synthroid Tablet) 175 mcg QAM@0600 PO 04/08/25 06:00 Enoxaparin Sodium (Lovenox) 90 mg DAILY SC 04/08/25 10:00 04/07/25 10:09 DC Heparin Sodium (Porcine) 5,000 units Q12HR SC 04/07/25 22:00 Review of Systems Limited due to patient's somnolence, lethargy. H&P Exam Vital Signs/I&O Vital Sign Date Time Temp Pulse Resp B/P (MAP) Pulse Ox O2 Delivery O2 Flow Rate FiO2 04/07/25 10:30 112 18 97/51 04/07/25 09:30 96 04/07/25 08:30 Nasal Cannula* 2 28 04/07/25 08:00 99.3 99.3 Intake and Output 04/06/25 04/07/25 19:00 07:00 Intake Total 1486.25 ml Output Total 475 ml Balance 1011.25 ml Intake IV Total 1486.25 ml Output Urine Total 475 ml Physical Exam Gen: nad, appears stated age heent: nc/at, lungs: Adequate air exchange cvs: no rub abd: soft, bowel sounds audible ext: + edema, chronic venous stasis changes, skin: As above neuro: Somnolent, Labs/Diagnostic Data Labs/Diagnostic Data Laboratory Tests Test 04/07/25 06:06 04/07/25 03:38 04/06/25 23:25 04/06/25 20:28 Range/Units Urine Color Light-yellow Yellow Urine Clarity Clear Clear Urine pH 5.0 5.0-9.0 Urine Specific [place] 1.015 1.001-1.035 Urine Protein Trace H Negative Urine Ketones Trace Negative Urine Blood 1+ H Negative /uL Urine Nitrite Negative Negative Urine Bilirubin Negative Negative Urine Urobilinogen Normal Negative mg/dL Urine Leukocyte Esterase 1+ Negative /uL Urine RBC 12 0 - 3 /hpf Urine Microscopic WBC 8 H 0-3 /HPF Urine Squamous Epithelial Cells Few <5 /hpf Urine Bacteria None seen None Seen /hpf Urine Hyaline Casts Few 0 - 2 /lpf Urine Yeast (Budding) Occasional None Seen /hpf Urine Glucose Normal Normal mg/dL White Blood Count 9.4 4.4-10.8 10^3/uL Red Blood Count 3.76 L 4.5-5.90 10^6/uL Hemoglobin 13.2 L 13.5-17.5 g/dL Hematocrit 38.5 L 41.0-53.0 % Mean Corpuscular Volume 102.4 H 80.0-100.0 fL Mean Corpuscular Hemoglobin 35.0 H 28.0-32.0 pg Mean Corpuscular Hemoglobin Concent 34.2 32.0-36.0 g/dL Red Cell Distribution Width 14.1 11.8-14.3 % Platelet Count 173 140-450 10^3/uL Mean Platelet Volume 8.2 6.9-10.8 fL Neutrophils (%) (Auto) 73.7 37.0-80.0 % Lymphocytes (%) (Auto) 16.4 10.0-50.0 % Monocytes (%) (Auto) 7.8 0.0-12.0 % Eosinophils (%) (Auto) 1.3 0.0-7.0 % Basophils (%) (Auto) 0.8 0.0-2.0 % Neutrophils # (Auto) 6.9 1.6-8.6 10 ^3/uL Lymphocytes # (Auto) 1.5 0.4-5.4 10 ^3/uL Monocytes # (Auto) 0.7 0-1.3 10 ^3/uL Eosinophils # (Auto) 0.1 0-0.8 10 ^3/uL Basophils # (Auto) 0.1 0-0.2 10 ^3/uL Nucleated Red Blood Cells 0.2 % Sodium Level 139 136-145 mmol/L Potassium Level 4.9 3.5-5.1 mmol/L Chloride Level 110 H 98-107 mmol/L Carbon Dioxide Level 15 L 20-31 mmol/L Anion Gap 14 5-15 Blood Urea Nitrogen 74 #H 9-23 mg/dL Creatinine 3.32 H 0.700-1.30 mg/dL Glomerular Filtration Rate Calc 18 >90 mL/min BUN/Creatinine Ratio 22.3 H 10.0-20.0 Serum Glucose 99 74-106 mg/dL Calcium Level 8.9 8.7-10.4 mg/dL Total Bilirubin 1.1 H 0.2-1.0 mg/dL Aspartate Amino Transferase (AST) 11 L 13-40 U/L Alanine Aminotransferase (ALT) < 9 7-40 U/L Alkaline Phosphatase 59 46-116 U/L Total Protein 6.5 5.7-8.2 g/dL Albumin 3.5 3.2-4.8 g/dL Blood Gas Specimen Type Venous Blood Gas Sample Site Vbg - n/a Blood Gas Patient Temperature 37.0 Arterial Blood Date Drawn [id number] Parmjit Test N/a Venous Blood pH 7.330 7.320-7.430 Venous Blood pCO2 at Patient Temp 28.0 L 38.0-54.0 mmHg Venous Blood pO2 at Patient Temp 44.4 23.0-48.0 mmHg Venous Blood HCO3 14.4 L 22.0-29.0 mmol/L Venous Blood Base Excess -9.8 L -2.0-3.0 mmol/L Blood Gas Liter Flow 3.00 Blood Gas Modality Nasal cannula FiO2 % 32.0 Troponin I High Sensitivity 9 </=54 ng/L Test 04/06/25 19:31 04/06/25 19:25 Range/Units Urine Color Yellow Yellow Urine Clarity Turbid H Clear Urine pH 5.0 5.0-9.0 Urine Specific [place] 1.022 1.001-1.035 Urine Protein 1+ H Negative Urine Ketones Negative Negative Urine Blood 2+ H Negative /uL Urine Nitrite Negative Negative Urine Bilirubin 1+ Negative Urine Urobilinogen 4 H Negative mg/dL Urine Leukocyte Esterase 3+ Negative /uL Urine RBC 102 0 - 3 /hpf Urine WBC Clumps Present None Seen /hpf Urine Microscopic WBC 235 H 0-3 /HPF Urine Squamous Epithelial Cells Few <5 /hpf Urine Bacteria Few H None Seen /hpf Urine Hyaline Casts Many 0 - 2 /lpf Urine Mucus Few None Seen Urine Glucose Normal Normal mg/dL Urine Opiates Screen Neg NEGATIVE Urine Fentanyl Screen Neg NEGATIVE Urine Barbiturates Screen Neg NEGATIVE Urine Phencyclidine Screen Neg NEGATIVE Urine Amphetamines Screen Neg NEGATIVE Urine Benzodiazepines Screen Neg NEGATIVE Urine Cocaine Screen Neg NEGATIVE Urine Cannabinoids Screen Neg NEGATIVE White Blood Count 7.9 4.4-10.8 10^3/uL Red Blood Count 3.99 L 4.5-5.90 10^6/uL Hemoglobin 13.9 13.5-17.5 g/dL Hematocrit 41.0 41.0-53.0 % Mean Corpuscular Volume 102.8 H 80.0-100.0 fL Mean Corpuscular Hemoglobin 34.8 H 28.0-32.0 pg Mean Corpuscular Hemoglobin Concent 33.9 32.0-36.0 g/dL Red Cell Distribution Width 14.3 11.8-14.3 % Platelet Count 197 140-450 10^3/uL Mean Platelet Volume 8.0 6.9-10.8 fL Neutrophils (%) (Auto) 60.9 37.0-80.0 % Lymphocytes (%) (Auto) 24.6 10.0-50.0 % Monocytes (%) (Auto) 8.9 0.0-12.0 % Eosinophils (%) (Auto) 4.6 0.0-7.0 % Basophils (%) (Auto) 1.0 0.0-2.0 % Neutrophils # (Auto) 4.8 1.6-8.6 10 ^3/uL Lymphocytes # (Auto) 2.0 0.4-5.4 10 ^3/uL Monocytes # (Auto) 0.7 0-1.3 10 ^3/uL Eosinophils # (Auto) 0.4 0-0.8 10 ^3/uL Basophils # (Auto) 0.1 0-0.2 10 ^3/uL Nucleated Red Blood Cells 0.0 % Prothrombin Time 11.5 9.3-11.8 sec Prothrombin Time INR 1.09 0.9-1.15 Activated Partial Thromboplast Time 29.0 24.5-34.5 SEC D-Dimer, Quantitative 1.77 H 0.0-0.49 mg/L FEU Sodium Level 137 136-145 mmol/L Potassium Level 5.1 3.5-5.1 mmol/L Chloride Level 103 98-107 mmol/L Carbon Dioxide Level 18 L 20-31 mmol/L Anion Gap 16 H 5-15 Blood Urea Nitrogen 114 *H 9-23 mg/dL Creatinine 4.60 H 0.700-1.30 mg/dL Glomerular Filtration Rate Calc 12 >90 mL/min BUN/Creatinine Ratio 24.8 H 10.0-20.0 Serum Glucose 94 74-106 mg/dL Hemoglobin A1c 5.4 <5.7 % A1C Lactic Acid Level 1.7 0.4-2.0 mmol/L Calcium Level 9.3 8.7-10.4 mg/dL Phosphorus Level 7.4 H 2.4-5.1 mg/dL Magnesium Level 2.5 1.6-2.6 mg/dL Total Bilirubin 1.0 0.2-1.0 mg/dL Aspartate Amino Transferase (AST) 11 L 13-40 U/L Alanine Aminotransferase (ALT) < 9 7-40 U/L Alkaline Phosphatase 68 46-116 U/L Troponin I High Sensitivity 9 </=54 ng/L C-Reactive Protein High Sensitivity 2.66 H <1.0 mg/dL B-Type Natriuretic Peptide 79.14 0-100 pg/mL Total Protein 6.9 5.7-8.2 g/dL Albumin 3.8 3.2-4.8 g/dL Triglycerides Level 202 H < 150 mg/dL Cholesterol Level 148 < 200 mg/dL LDL Cholesterol 88 < 100 mg/dL HDL Cholesterol 30 L 40-59 mg/dL Lipase 33 12-53 U/L Thyroid Stimulating Hormone (TSH) 0.78 0.55-4.78 uIU/mL Assessment IMP: 1) Hemodynamically mediated CHAIM/VMN, possible prerenal etiology 2) CKD stage III? Last creatinine was essentially normal back in 2021 per [employer] 3) skin soft tissue infection of bilateral lower extremities 4) toxic metabolic encephalopathy 5) lactic acidosis REC: - agree with judicious volume expansion as cardiopulmonary status permits - we will check urine studies, serial chemistry panels as you are doing - we will continue to monitor for trend in GFR improvement with conservative therapy. - general recommendations to avoid intravenous contrast studies if able. - we will continue to follow closely with you. Thank you for the consultation. Plan discussed with: IRENE Quan MD Apr 07, 2025 15:43
[2025-04-07] MEDS: NITROGLYCERIN 2% OINT 1GM PKG TD ONE (16:24)
--- NOTE | 2025-04-07 16:46 | DVHSR ---
APPROVED REPORT EXAM: LIMITED Two-dimensional and M-mode echocardiogram with Doppler and color Doppler. Blood Pressure: 97/51 mmHg INDICATION SHOCK RISK FACTORS Height: 6', Weight: 209 DIMENSIONS LVDd4.9 (3.8-5.7cm)LA (2D)4.2 (1.9-4.0cm)Aortic Root4.2 (2.0-3.7cm) LVDs3.6 (2.5-4.0cm)LA (MM) (1.9-4.0cm)Aortic Cusp Exc1.5 (1.5-2.0cm) EF (%) 50.0 (55-70%)Rt. Atrium4.9 (1.9-4.0cm)Asc. Aorta cm IVSd1.1 (0.7-1.1cm)RV (D) (1.8-2.4cm) PWd1.0 (0.7-1.1cm) Mitral Valve MitralMitral Stenosis E wave1.50m/sMV Mean GR.mmHg E/A ratio0.02D MVAcm2 Aortic Valve Aortic ValveAortic Stenosis V10.80m/Rubens Mean GR.15mmHg V22.50m/Rubens Peak GR.25mmHg LVOT Diameter2.6 (1.8-2.4cm)Doppler AVA1.70cm2 Tricuspid Valve TR Velocity2.80m/s [id number] Other Information Quality : Technically LimitedRhythm : Technically limited study due to body habitus. Conclusion Sinus rhythm. Biatrial enlargement and aortic root enlargement. Dilation of the sinuses of Valsalva. Mild mitral annular calcification. The aortic valve has notable calcification with diminished excurs ion of the leaflets. It appears to be a bicuspid valve. Tricuspid and pulmonic normal. Left ventricular function is preserved at 65% with normal RV function. There is a peak gradient of25 mmHg across the aortic valve with a mean gradient of 17. MmHg. This y ields a valve area of 1.7 cm2 consistent with mild aortic stenosis. No evidence for critical stenosi s No pericardial effusion masses or vegetations.
[2025-04-07] MEDS: SODIUM CHLORIDE 0.9% 250 ML IV ONE (18:30)
--- NOTE | 2025-04-07 19:38 | DVHNC2 ---
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 A time-out was performed to verify the correct patient, procedure, and site. The patient was placed in the Trendelenburg position. The right neck area was prepped with chlorhexidine and draped in a sterile fashion. Under ultrasound guidance, the right internal jugular vein was identified and accessed using a finder needle with free aspiration of dark venous blood. A guidewire was advanced smoothly into the vessel, and its position was confirmed by ultrasound visualization. After a small skin incision was made with a scalpel, the tract was dilated, and a triple-lumen catheter was advanced over the guidewire into the vein. The guidewire was removed, and all ports aspirated and flushed easily with sterile saline. The catheter was secured with sutures, and a sterile dressing was applied. Franko Najera PGY3 Mat Callahan MD Date of Service: Apr 07, 2025 Billing Provider: MAT CALLAHAN MD Common Visit Codes: NOT BILLABLE (Refer to progress note on the same day) Procedure Codes: 52141-[id number] NON-TUNNEL CV CATH FRANKO NAJERA RESIDENT Apr 07, 2025 19:38 MAT CALLAHAN MD Apr 08, 2025 13:17
--- NOTE | 2025-04-07 20:03 | DVH ---
CHEST RADIOGRAPH REASON FOR EXAM: Right IJ catheter placement COMPARISON: XY CHEST PORTABLE on DOS: 04/06/25 TECHNIQUE: One view of the chest is provided FINDINGS: The cardiomediastinal silhouette is stable. There is a 2 lead cardiac pacer. There is aort ic atherosclerosis. There is a right neck catheter with the tip projecting over the upper SVC. There are calcified mediastinal and hilar lymph nodes. There is no pneumothorax. There is no significant p leural effusion. There is right basilar airspace disease. IMPRESSION: Right neck catheter tip projects over the upper SVC. Right basilar airspace disease. Correlate with physical exam for possible pneumonia.
[2025-04-07] MEDS: HEPARIN SODIUM (PORCINE) 5000 UNITS/ML 1ML VIAL SC SCH (22:20)
[2025-04-08] VITALS (95 sets, daily range): BP systolic 84–142; BP diastolic 51–86; PULSE 85–130; RESP 12–32; TEMP 98–98.7; O2SAT 91–100
[2025-04-08 04:41] LABS: Hemoglobin 12.5 g/dL (13.5-17.5); Mean Corpuscular Hemoglobin 34.8 pg (28.0-32.0)
[2025-04-08 04:44] LABS: Hematocrit 36.6 % (41.0-53.0); Mean Corpuscular Volume 102.0 fL (80.0-100.0); Nucleated Red Blood Cells % 0.0 %
[2025-04-08 04:57] LABS: Potassium 4.4 mmol/L (3.5-5.1); Sodium 143 mmol/L (136-145)
[2025-04-08 04:58] LABS: Anion Gap 11 (5-15)
[2025-04-08 04:59] LABS: Calcium 8.8 mg/dL (8.7-10.4)
[2025-04-08 05:04] LABS: BUN/Creatinine Ratio 37.6 (10.0-20.0); Magnesium 1.9 mg/dL (1.6-2.6)
[2025-04-08 05:14] LABS: Blood Urea Nitrogen 47 mg/dL (9-23); Carbon Dioxide 19 mmol/L (20-31); Chloride 113 mmol/L (98-107); Glucose 120 mg/dL (74-106)
[2025-04-08] MEDS: LEVOTHYROXINE SODIUM 50 MCG TAB PO SCH (06:00)
[2025-04-08] MEDS: MAGNESIUM SULFATE 1GM/100ML 100 ML IV ONE (06:30)
--- NOTE | 2025-04-08 08:04 | ECG ---
[facility] Test Date: 2025-04-06 Test Time: 20:54:38 Pat Name: JEANA ROLDAN Department: [facility] ED Patient ID: [id number] Room: 0219T Gender: M Payroll Administrative Assistant: isaiah : [id number] Requested By: GAYLE ALMARAZ Order Number: [id number] Reading MD: Hollis Purdy Measurements Intervals [place] Rate: 111 P: 0 CT: 0 QRS: 54 QRSD: 111 T: -74 QT: 364 QTc: 495 Interpretive Statements Atrial fibrillation Borderline low voltage, extremity leads Prolonged QT interval Artifact in lead(s) I,III,aVR,aVL,aVF Electronically Signed On 04-15-2025 13:38:57 PDT by Hollis Purdy Please click the below link to view image of tracing.
[2025-04-08 09:09] LABS: COVID19 ANTIGEN SOFIA FIA NEGATIVE (NEGATIVE)
[2025-04-08] MEDS ORDERED: ENOXAPARIN SOD 100 MG/1 ML SYRINGE SC SCH (10:00)
--- NOTE | 2025-04-08 10:58 | DVHCONRES ---
Date Seen: Apr 08, 2025 Resident Creating Document: UBALDO SANTIAGO RESIDENT Referring Physician Dr Sampson Reason for Consultation Cardiology was consulted due to afib with RVR and pacemaker check up History of Present Illness Mr. Darian Crespo is an 84-year-old male with a significant cardiac history including hypertension, hyperlipidemia, COPD, sick sinus syndrome status post permanent pacemaker, coronary artery disease with prior [place] in 1994 status post stent, and chronic kidney disease stage 3. He also has hypothyroidism, benign prostatic hyperplasia, and bladder squamous cell carcinoma. He presents with three weeks of progressive weakness, dyspnea, and non-healing bilateral lower extremity wounds. He reports increased fatigue but denies chest pain, palpitations, or syncope. Cardiology was consulted due to afib with RVR and pacemaker check up A venous duplex before this admission demonstrated deep vein thrombosis, for which he remains on Eliquis, in this admission US is negative. 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 He is currently on antibiotics (linezolid and meropenem) for soft tissue infection. Pa [employer] interrogation today showed 100% atrial fibrillation burden, ventricular pacing 12%, and normal lead function with approximately 1 year of battery life remaining. His afib with RVR was treated with metoprolol at home Echocardiogram: Biatrial enlargement; aortic valve bicuspid with mild aortic stenosis (valve area 1.7 cm, peak 25 mmHg); EF 65%; mild mitral annular calcifi cation. Past Medical History Past Medical History: Hypertension Hyperlipidemia COPD Sick sinus syndrome, s/p permanent pacemaker Coronary artery disease (MS stent 1) CKD stage 3 Bladder cancer (squamous cell carcinoma) Hypothyroidism Benign prostatic hyperplasia Past Surgical History Coronary stent placement Pacemaker placement Allergies: Coded Allergies: NO KNOWN ALLERGIES (Unverified , 04/06/25) Home Meds Apixaban , Metoprolol, Lisinopril, Levothyroxine, Colchicine, Vitamin B12, Trelegy inhaler, Finasteride. furosemide, levothyroxine Current Medications Current Medications Medications (Trade) Dose Ordered Sig/Angelito Route PRN Reason Start Time Stop Time Status Last Admin Levothyroxine Sodium (Synthroid Tablet) 175 mcg QAM@0600 PO 04/08/25 06:00 04/08/25 06:00 Enoxaparin Sodium (Lovenox) 90 mg DAILY SC 04/08/25 10:00 04/07/25 10:09 DC Heparin Sodium (Porcine) 5,000 units Q12HR SC 04/07/25 22:00 04/08/25 10:16 Atorvastatin Calcium (Lipitor) 20 mg HS PO 04/08/25 22:00 Acetaminophen (Tylenol Tablet) 650 mg Q6HP PRN PO MILD PAIN (1-3 PAIN SCALE) 04/07/25 17:00 Meropenem 50 ml @ 17 mls/hr Q8H IV 04/08/25 12:00 Review of Systems Negative for chest pain, palpitations, or syncope. Positive for weakness, dyspnea, and non-healing leg wounds. No orthopnea or paroxysmal nocturnal dyspnea reported. Vital Signs Vital Signs Date Time Temp Pulse Resp B/P (MAP) Pulse Ox O2 Delivery O2 Flow Rate FiO2 04/08/25 07:52 83/59 04/08/25 06:00 16 97 Nasal Cannula* 2 28 04/08/25 06:00 120 04/08/25 04:00 98.5 98.5 Physical Exam General: Elderly male, alert and oriented, not in acute distress. Vital Signs: Stable; HR (90-130) saturation maintained with o2 2lt HEENT: No JVD or carotid bruits, CVC clean Cardiac: Irregularly irregular rhythm consistent with AF, no murmurs or rubs. Lungs: Clear to auscultation, no wheezes or rales. Abdomen: Soft, nontender, no hepatosplenomegaly. Extremities: Bilateral lower extremity wounds with surrounding erythema, BLE Neuro: Grossly intact. Labs/Diagnostic Data Labs Test 04/08/25 06:36 04/08/25 04:15 04/07/25 06:06 04/07/25 03:38 Range/Units Influenza Type A Antigen Negative Negative Influenza Type B Antigen Negative Negative SARS-CoV-2 Antigen (Rapid) Negative NEGATIVE White Blood Count 8.1 4.4-10.8 10^3/uL Red Blood Count 3.59 L 4.5-5.90 10^6/uL Hemoglobin 12.5 L 13.5-17.5 g/dL Hematocrit 36.6 L 41.0-53.0 % Mean Corpuscular Volume 102.0 H 80.0-100.0 fL Mean Corpuscular Hemoglobin 34.8 H 28.0-32.0 pg Mean Corpuscular Hemoglobin Concent 34.2 32.0-36.0 g/dL Red Cell Distribution Width 14.1 11.8-14.3 % Platelet Count 173 140-450 10^3/uL Mean Platelet Volume 7.9 6.9-10.8 fL Neutrophils (%) (Auto) 67.3 37.0-80.0 % Lymphocytes (%) (Auto) 20.7 10.0-50.0 % Monocytes (%) (Auto) 9.8 0.0-12.0 % Eosinophils (%) (Auto) 1.3 0.0-7.0 % Basophils (%) (Auto) 0.9 0.0-2.0 % Neutrophils # (Auto) 5.5 1.6-8.6 10 ^3/uL Lymphocytes # (Auto) 1.7 0.4-5.4 10 ^3/uL Monocytes # (Auto) 0.8 0-1.3 10 ^3/uL Eosinophils # (Auto) 0.1 0-0.8 10 ^3/uL Basophils # (Auto) 0.1 0-0.2 10 ^3/uL Nucleated Red Blood Cells 0.0 % Sodium Level 143 136-145 mmol/L Potassium Level 4.4 3.5-5.1 mmol/L Chloride Level 113 H 98-107 mmol/L Carbon Dioxide Level 19 L 20-31 mmol/L Anion Gap 11 5-15 Blood Urea Nitrogen 47 #H 9-23 mg/dL Creatinine 1.25 # 0.700-1.30 mg/dL Glomerular Filtration Rate Calc 57 >90 mL/min BUN/Creatinine Ratio 37.6 H 10.0-20.0 Serum Glucose 120 H 74-106 mg/dL Calcium Level 8.8 8.7-10.4 mg/dL Magnesium Level 1.9 1.6-2.6 mg/dL Urine Color Light-yellow Yellow Urine Clarity Clear Clear Urine pH 5.0 5.0-9.0 Urine Specific [place] 1.015 1.001-1.035 Urine Protein Trace H Negative Urine Ketones Trace Negative Urine Blood 1+ H Negative /uL Urine Nitrite Negative Negative Urine Bilirubin Negative Negative Urine Urobilinogen Normal Negative mg/dL Urine Leukocyte Esterase 1+ Negative /uL Urine RBC 12 0 - 3 /hpf Urine Microscopic WBC 8 H 0-3 /HPF Urine Squamous Epithelial Cells Few <5 /hpf Urine Bacteria None seen None Seen /hpf Urine Hyaline Casts Few 0 - 2 /lpf Urine Yeast (Budding) Occasional None Seen /hpf Urine Creatinine 92.60 30.0-125.0 mg/dL Urine Sodium 40 40-220 mmol/L Urine Glucose Normal Normal mg/dL Total Bilirubin 1.1 H 0.2-1.0 mg/dL Aspartate Amino Transferase (AST) 11 L 13-40 U/L Alanine Aminotransferase (ALT) < 9 7-40 U/L Alkaline Phosphatase 59 46-116 U/L Total Protein 6.5 5.7-8.2 g/dL Albumin 3.5 3.2-4.8 g/dL Test 04/06/25 23:25 04/06/25 20:28 04/06/25 19:31 04/06/25 19:25 Range/Units Blood Gas Specimen Type Venous Blood Gas Sample Site Vbg - n/a Blood Gas Patient Temperature 37.0 Arterial Blood Date Drawn [id number] Parmjit Test N/a Venous Blood pH 7.330 7.320-7.430 Venous Blood pCO2 at Patient Temp 28.0 L 38.0-54.0 mmHg Venous Blood pO2 at Patient Temp 44.4 23.0-48.0 mmHg Venous Blood HCO3 14.4 L 22.0-29.0 mmol/L Venous Blood Base Excess -9.8 L -2.0-3.0 mmol/L Blood Gas Liter Flow 3.00 Blood Gas Modality Nasal cannula FiO2 % 32.0 Troponin I High Sensitivity 9 </=54 ng/L Urine WBC Clumps Present None Seen /hpf Urine Mucus Few None Seen Urine Opiates Screen Neg NEGATIVE Urine Fentanyl Screen Neg NEGATIVE Urine Barbiturates Screen Neg NEGATIVE Urine Phencyclidine Screen Neg NEGATIVE Urine Amphetamines Screen Neg NEGATIVE Urine Benzodiazepines Screen Neg NEGATIVE Urine Cocaine Screen Neg NEGATIVE Urine Cannabinoids Screen Neg NEGATIVE Prothrombin Time 11.5 9.3-11.8 sec Prothrombin Time INR 1.09 0.9-1.15 Activated Partial Thromboplast Time 29.0 24.5-34.5 SEC D-Dimer, Quantitative 1.77 H 0.0-0.49 mg/L FEU Hemoglobin A1c 5.4 <5.7 % A1C Lactic Acid Level 1.7 0.4-2.0 mmol/L Phosphorus Level 7.4 H 2.4-5.1 mg/dL C-Reactive Protein High Sensitivity 2.66 H <1.0 mg/dL B-Type Natriuretic Peptide 79.14 0-100 pg/mL Triglycerides Level 202 H < 150 mg/dL Cholesterol Level 148 < 200 mg/dL LDL Cholesterol 88 < 100 mg/dL HDL Cholesterol 30 L 40-59 mg/dL Lipase 33 12-53 U/L Thyroid Stimulating Hormone (TSH) 0.78 0.55-4.78 uIU/mL Microbiology Date/Time Source Procedure Growth Status 04/06/25 19:31 Voided Urine Urine Culture - Preliminary Resulted 04/06/25 19:25 Blood Blood Culture - Preliminary NO GROWTH AFTER 24 HOURS OF INCUBATION. 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 Elevated HR is expected due to current sepsis. Continue levophed due to septic shock, Continue full anticoagulation with enoxaparin already placed by primary team, transition to Eliquis given DVT and AF history when is appropriate. Hold on beta-christofer and SHANNAN inhibitor until septic shock resolves. Echocardiogram with preserved EF, aortic bicuspid valve and mild aortic stenosisno acute cardiac intervention required. Continue antibiotics (linezolid, meropenem) for soft tissue sepsis per primary team and monitor for clinical improvement. Reassess renal function and electrolytes daily. Continue chronic medications including levothyroxine, statin, and inhalers. Pacemaker functioning well; no reprogramming indicated. Outpatient follow-up with cardiology and pacemaker clinic in 36 months. Venous and arterial ultrasounds were reviewed no need of intervention at this time. We will sign off of this case. PT SEEN AND EXAMINED WITH CV TEAM AGREE WITH RESIDENT ASSESSMENT AND PLAN Plan discussed with: Patient, Daughter, Son UBALDO SANTIAGO RESIDENT Apr 08, 2025 10:58 NIRANJAN QUESADA MD Apr 09, 2025 17:26
[2025-04-08] MEDS: MEROPENEM 1GM IVPB 50 ML IV SCH (12:47)
--- NOTE | 2025-04-08 14:12 | DVHPN2 ---
Progress Note Date Seen: Apr 08, 2025 Medical Necessity Reason Pt with a Central, PICC or Fol: Yes The following are medically ne: Peters Catheter Reason for peters catheter: Strict I&O Objective vital signs Vital Sign Date Time Temp Pulse Resp B/P (MAP) Pulse Ox O2 Delivery O2 Flow Rate FiO2 04/08/25 07:52 83/59 04/08/25 06:00 16 97 Nasal Cannula* 2 28 04/08/25 06:00 120 04/08/25 04:00 98.5 98.5 Total Intake and Output 04/07/25 04/07/25 04/08/25 15:00 23:00 07:00 Intake Total 1081.25 ml 1181.25 ml 943.75 ml Output Total 1800 ml 1400 ml Balance 1081.25 ml -618.75 ml -456.25 ml medications Current Medications Medications Dose Ordered Sig/Angelito Route Start Time Stop Time Status Last Admin Dose Admin Acetaminophen 325 mg Q4HP PRN PO 04/06/25 22:00 Ondansetron HCl 4 mg Q4HP PRN IV 04/06/25 22:00 Linezolid 300 ml @ 150 mls/hr Q12HR IV 04/07/25 10:00 04/08/25 10:14 150 MLS/HR Meropenem 50 ml @ 17 mls/hr Q8HR IV 04/07/25 06:00 UNV Sodium Chloride 1,000 ml @ 75 mls/hr [id number] IV 04/07/25 00:00 04/07/25 20:50 75 MLS/HR Norepinephrine Bitartrate 250 ml @ 3.75 mls/hr Q24H IV 04/07/25 04:15 04/07/25 20:23 26.25 MLS/HR Pantoprazole Sodium 40 mg DAILY IV 04/07/25 10:00 04/08/25 10:14 40 MG Docusate Sodium 100 mg BIDPRN PRN PO 04/07/25 08:30 Levothyroxine Sodium 175 mcg QAM@0600 PO 04/08/25 06:00 04/08/25 06:00 175 MCG Atorvastatin Calcium 20 mg HS PO 04/08/25 22:00 Acetaminophen 650 mg Q6HP PRN PO 04/07/25 17:00 Meropenem 50 ml @ 17 mls/hr Q8H IV 04/08/25 12:00 04/08/25 12:47 17 MLS/HR Enoxaparin Sodium 90 mg Q12HR SC 04/08/25 22:00 Examination: LUNGS:Normal, CVS:Abnormal, ABDOMEN:Normal laboratory and microbiology Laboratory Tests 04/08/25 04:15 Test 04/08/25 04:15 Range/Units Serum Glucose 120 H 74-106 mg/dL Microbiology Date/Time Source Procedure Growth Status 04/07/25 17:25 Foot Gram Stain - Final Resulted 04/07/25 17:25 Foot Wound Culture - Preliminary Resulted 04/06/25 19:31 Voided Urine Urine Culture - Preliminary Resulted 04/06/25 19:25 Blood Blood Culture - Preliminary NO GROWTH AFTER 24 HOURS OF INCUBATION. Resulted Problem List/Assessment/Plan Problem List/Assessment/Plan Acute kidney injury hemodynamically mediated -multiple hypotensive episodes atrial flutter and shock contributing to decreased renal perfusion -pressors to maintain mean arterial pressure greater than 65 -cardiology on board for rate control -treatment of infection -renal function has improved significantly there is no indication for dialysis at this time [id number] chronic kidney disease between stage II and three Atrial flutter As per Cardiology Septic shock -treatment as per primary medical team -avoid nephrotoxic IV antibiotics and recommend dose related to GFR related dosing for all medications Avoid contrast studies at this time Avoid nonsteroidal anti-inflammatory drugs Rest of care as per primary medical team Plan discussed with: Patient, Son Dietary Evaluation Review Comments: 1) Initiate MVI @ 1 tb qd 2) Add cardiac restriction to renal diet 3) Encourage optimal PO intake 4) Follow-up with cardiology, pulmonology, and nephrology 5) Continue to monitor I&O, labs, and skin integrity Expected Outcomes/Goals: 1) appetite and labs to improve 2) wounds to improve 3) f/u in 3-5 days Total Time (mins): 56 HAROLDO REYEZ MD Apr 08, 2025 14:12
[2025-04-08] MEDS ORDERED: VANCOMYCIN PER PHARMACY 0 MG IV SCH (17:00)
[2025-04-08] MEDS: ENSURE CLEAR Mixed Berry 8oz Carton PO SCH (18:00)
[2025-04-08] MEDS: ENOXAPARIN SOD 100 MG/1 ML SYRINGE SC ONE (18:20)
[2025-04-08] MEDS: VANCOMYCIN 1GM/250ML KIT 250 ML IV ONE (18:22)
--- NOTE | 2025-04-08 18:47 | DVHPNRES ---
Progress Note Date Seen: Apr 08, 2025 Resident Creating Document: LIZETTE MAI RESIDENT Medical Necessity Reason Pt with a Central, PICC or Fol: Yes The following are medically ne: Peters Catheter Reason for peters catheter: Strict I&O Subjective Review of Systems Darian Curran is a 84-year-old male patient who presents to ED with chief complaint of nonhealing bilateral lower limb wounds (right worse than left), generalized weakness, confusion and dyspnea in variable functional class which has progressively worsened in the past three weeks. Daughter came to visit father and saw lower limbs, prompting the visit to the ED. Patient was on p.o. diuretics (Lasix), with reduced oral intake of food and liquids in the past three weeks (patient believes is secondary to adverse effect of radiotherapy since it is harder for him to swallow). Patient reports history of bladder cancer, only had one visit with urologist who completed laser surgery of bladder, but did not have follow up for over a year. Patient also reports history of DVT in right lower extremity, he is currently on Eliquis. Denies any other associated symptoms including chest pain, nausea, vomiting, diarrhea. 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 [id number] is daughter). Ex tobacco abuse (50 pack-year history of smoking), quit in 2009. Denies current tobacco, alcohol and other drug abuse. Allergies: Denies Home medication: Apixaban, metoprolol, colchicine, vitamin B12, Trelegy, tamsulosin, finasteride, lisinopril, furosemide, potassium chloride, levothyroxine 04/07/2025 Patient seen and examined at bedside Patient is currently on 2 L/min of oxygen through nasal cannula Mentioned no other complaint 04/10/2025: Patient seen in [facility]. Currently requiring 2-3 L oxygen via nasal cannula. On minimal vasopressors. Able to tolerate diet. Appropriate urine output 700-800 mL. No any other new complaints. Objective vital signs Vital Sign Date Time Temp Pulse Resp B/P (MAP) Pulse Ox O2 Delivery O2 Flow Rate FiO2 04/08/25 16:00 18 97 Nasal Cannula* 2 28 04/08/25 16:00 100 04/08/25 14:00 112/70 (84) 04/08/25 12:00 98.1 98.1 Total Intake and Output 04/07/25 04/07/25 04/08/25 15:00 23:00 07:00 Intake Total 1081.25 ml 1181.25 ml 943.75 ml Output Total 1800 ml 1400 ml Balance 1081.25 ml -618.75 ml -456.25 ml medications Current Medications Medications Dose Ordered Sig/Angelito Route Start Time Stop Time Status Last Admin Dose Admin Acetaminophen 325 mg Q4HP PRN PO 04/06/25 22:00 Ondansetron HCl 4 mg Q4HP PRN IV 04/06/25 22:00 Meropenem 50 ml @ 17 mls/hr Q8HR IV 04/07/25 06:00 UNV Sodium Chloride 1,000 ml @ 75 mls/hr [id number] IV 04/07/25 00:00 04/07/25 20:50 75 MLS/HR Norepinephrine Bitartrate 250 ml @ 3.75 mls/hr Q24H IV 04/07/25 04:15 04/07/25 20:23 26.25 MLS/HR Pantoprazole Sodium 40 mg DAILY IV 04/07/25 10:00 04/08/25 10:14 40 MG Docusate Sodium 100 mg BIDPRN PRN PO 04/07/25 08:30 Levothyroxine Sodium 175 mcg QAM@0600 PO 04/08/25 06:00 04/08/25 06:00 175 MCG Atorvastatin Calcium 20 mg HS PO 04/08/25 22:00 Acetaminophen 650 mg Q6HP PRN PO 04/07/25 17:00 Meropenem 50 ml @ 17 mls/hr Q8H IV 04/08/25 12:00 04/08/25 12:47 17 MLS/HR Enoxaparin Sodium 90 mg Q12HR SC 04/08/25 22:00 Enteral Nutritional Formula 240 ml TIDWM PO 04/08/25 18:00 Vancomycin HCl 0 ml @ 0 mls/hr UD IV 04/08/25 17:00 Examination General Appearance: Cooperative. Well developed. Well nourished. NAD Head Exam: Normal inspection Neck Exam: Normal inspection. Non-tender. Normal alignment Pulmonary/Respiratory: Chest non-tender. Bilateral lower lung base crackles, no wheezing Cardiovascular/Chest: Regular rate and rhythm. No murmurs. No JVD. Peripheral Pulses: 2+ Radial (R). 2+ Radial (L). 2+ Pedal (R). 2+ Pedal (L) Abdominal Exam: Normal bowel sounds. Soft. Nontender. No hepatospenomegaly. No masses Ankle Exam: Negative ankle edema Lower extremities: Warm bilateral erythema, weeping fluid from right side, warm to touch bilateral feet,Discolored and brittle toenails Neuro/Mental Status: A&O x4. Coherent laboratory and microbiology Laboratory Tests 04/08/25 04:15 Test 04/08/25 04:15 Range/Units Serum Glucose 120 H 74-106 mg/dL Microbiology Date/Time Source Procedure Growth Status 04/07/25 17:25 Foot Gram Stain - Final Resulted 04/07/25 17:25 Foot Wound Culture - Preliminary Resulted 04/06/25 19:31 Voided Urine Urine Culture - Preliminary Resulted 04/06/25 19:25 Blood Blood Culture - Preliminary NO GROWTH AFTER 24 HOURS OF INCUBATION. 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 daily Popliteal artery Aneurysm -Lovenox History of hypertension Currently hypotensive Dyslipidemia -atorvastatin 20 p.o. daily Peripheral vascular disease -Anticoagulation:Lovenox, -Atorvastatin 20mg po daily Respiratory Acute on chronic hypoxic respiratory failure (home oxygen 2 L/min) Chronic obstructive pulmonary disease exacerbation -continue oxygen via nasal cannula 2 L per minute Infection Sepsis with septic shock due to UTI and bilateral lower extremity cellulitis -IV fluids NS 75 mL/hour -IV antibiotic: Meropenem, vancomycin -Currently on norepinephrine drip: 2-4 mics per minute -MRSA screen : Negative -Blood culture: No growth till now -Urine culture : Prelim culture [place] [id number] CFU/mL -Wound culture -Wound care -Lactic acid : 1.7 Bilateral lower leg cellulitis leg wound ulcer, right-sided posterior surface POA yes -IV antibiotics -Wound culture Complicated UTI -continue management of sepsis Nephrology/ CHAIM and CKD due to vasomotor nephropathy due to sepsis, CKD stage 3 -creatinine: 3.32, 1.25 -GFR: 18, 57 -continue IV fluid : NS 75 mL/hour -strict I&O -Nephrology consulted Anion gap metabolic acidosis with compensatory respiratory alkalosis due to sepsis/uremia -improved -anion gap: 11 on 04/08/2025 BPH Hold tamsulosin because of hypotension Oncology # Squamous cell carcinoma in ears status post 22 sessions of radiotherapy complicated by decreased food intake due to parotid gland radiation Bladder cancer status post laser treatment Bladder Calcification Seen on CT Urology consultation # History of DVT Currently on lovenox # Ex tobacco abuse (50 pack-year history of smoking), quit in 2009. #DVT prophylaxis:lovenox #PUD prophylaxis: Protonix Right IJ central line: 04/07/2025 Goals of care has been discussed, greater than 24 minutes. Chemical code. critical care time excluding procedures is 61 mins Plan discussed with Plan discussed with: Patient, Other (RN) My Orders My Orders Orders - LIZETTE MAI RESIDENT Procedure Category Date Status Time Enoxaparin Sodium PHA 04/08/25 In Process (Lovenox) 22:00 Nutritional PHA 04/08/25 In Process Supplements (Ensure 18:00 Vancomycin Per PHA 04/08/25 In Process Pharmacy 17:00 Dietary Evaluation Review Comments: 1) Initiate MVI @ 1 tb qd 2) Add cardiac restriction to renal diet 3) Encourage optimal PO intake 4) Follow-up with cardiology, pulmonology, and nephrology 5) Continue to monitor I&O, labs, and skin integrity Expected Outcomes/Goals: 1) appetite and labs to improve 2) wounds to improve 3) f/u in 3-5 days Date of Service: Apr 08, 2025 Billing Provider: BRUNO HERNANDEZ MD Common Visit Codes: [id number] CARE 30-74 MIN LIZETTE MAI RESIDENT Apr 08, 2025 18:47 BRUNO HERNANDEZ MD Apr 09, 2025 15:48
[2025-04-08] MEDS: ENOXAPARIN SOD 100 MG/1 ML SYRINGE SC SCH (21:57)
[2025-04-08] MEDS: ATORVASTATIN 20 MG TAB PO SCH (21:58)
[2025-04-09] VITALS (88 sets, daily range): BP systolic 73–135; BP diastolic 41–86; PULSE 83–146; RESP 12–33; TEMP 97.8–99; O2SAT 94–100
[2025-04-09 03:28] LABS: Hematocrit 34.8 % (41.0-53.0); Hemoglobin 12.0 g/dL (13.5-17.5); Mean Corpuscular Hemoglobin 35.1 pg (28.0-32.0); Mean Corpuscular Volume 101.3 fL (80.0-100.0); Nucleated Red Blood Cells % 0.0 %
[2025-04-09 03:34] LABS: Potassium 3.9 mmol/L (3.5-5.1); Sodium 142 mmol/L (136-145)
[2025-04-09 03:35] LABS: Anion Gap 9 (5-15); Calcium 8.9 mg/dL (8.7-10.4); Carbon Dioxide 22 mmol/L (20-31); Chloride 111 mmol/L (98-107)
[2025-04-09 03:40] LABS: BUN/Creatinine Ratio 29.9 (10.0-20.0); Glucose 95 mg/dL (74-106)
[2025-04-09 03:44] LABS: Blood Urea Nitrogen 26 mg/dL (9-23)
[2025-04-09] MEDS: ACETAMINOPHEN 325 MG TAB PO PRN (04:43)
--- NOTE | 2025-04-09 09:41 | DVHPN2 ---
Progress Note Date Seen: Apr 09, 2025 Medical Necessity Reason Pt with a Central, PICC or Fol: Yes The following are medically ne: Peters Catheter Reason for peters catheter: Strict I&O Subjective Patient reports: Feels better Objective vital signs Vital Sign Date Time Temp Pulse Resp B/P (MAP) Pulse Ox O2 Delivery O2 Flow Rate FiO2 04/09/25 08:00 101 04/09/25 06:00 16 99 Nasal Cannula* 2 28 04/09/25 05:15 88/49 (62) 04/09/25 04:45 98.7 98.7 Total Intake and Output 04/08/25 04/08/25 04/09/25 15:00 23:00 07:00 Intake Total 804.75 ml 2096.875 ml 920.0 ml Output Total 950 ml 800 ml Balance 804.75 ml 1146.875 ml 120.0 ml medications Current Medications Medications Dose Ordered Sig/Angelito Route Start Time Stop Time Status Last Admin Dose Admin Acetaminophen 325 mg Q4HP PRN PO 04/06/25 22:00 04/09/25 04:43 325 MG Ondansetron HCl 4 mg Q4HP PRN IV 04/06/25 22:00 Meropenem 50 ml @ 17 mls/hr Q8HR IV 04/07/25 06:00 UNV Sodium Chloride 1,000 ml @ 75 mls/hr [id number] IV 04/07/25 00:00 04/09/25 05:20 75 MLS/HR Norepinephrine Bitartrate 250 ml @ 3.75 mls/hr Q24H IV 04/07/25 04:15 04/09/25 04:42 3.75 MLS/HR Pantoprazole Sodium 40 mg DAILY IV 04/07/25 10:00 04/08/25 10:14 40 MG Docusate Sodium 100 mg BIDPRN PRN PO 04/07/25 08:30 Levothyroxine Sodium 175 mcg QAM@0600 PO 04/08/25 06:00 04/09/25 06:17 175 MCG Atorvastatin Calcium 20 mg HS PO 04/08/25 22:00 04/08/25 21:58 20 MG Acetaminophen 650 mg Q6HP PRN PO 04/07/25 17:00 Meropenem 50 ml @ 17 mls/hr Q8H IV 04/08/25 12:00 04/09/25 04:42 17 MLS/HR Enoxaparin Sodium 90 mg Q12HR SC 04/08/25 22:00 04/08/25 21:57 90 MG Enteral Nutritional Formula 240 ml TIDWM PO 04/08/25 18:00 Vancomycin HCl 0 ml @ 0 mls/hr UD IV 04/08/25 17:00 Vancomycin HCl 250 ml @ 250 mls/hr Q18H IV 04/09/25 11:00 Examination: GENERAL:Abnormal, LUNGS:Abnormal, CVS:Abnormal, SKIN:Normal laboratory and microbiology Laboratory Tests 04/09/25 02:50 Test 04/09/25 02:50 Range/Units Serum Glucose 95 74-106 mg/dL Microbiology Date/Time Source Procedure Growth Status 04/07/25 17:25 Foot Gram Stain - Final Resulted 04/07/25 17:25 Foot Wound Culture - Preliminary Resulted 04/06/25 19:31 Voided Urine Urine Culture - Preliminary Resulted 04/06/25 19:25 Blood Blood Culture - Preliminary NO GROWTH AFTER 48 HOURS OF INCUBATION. Resulted Problem List/Assessment/Plan Problem List/Assessment/Plan Acute kidney injury hemodynamically mediated -multiple hypotensive episodes atrial flutter and shock contributing to decreased renal perfusion -pressors to maintain mean arterial pressure greater than 65 -cardiology on board for rate control -treatment of infection -CHAIM has resolved Mild chronic kidney disease stage II Atrial flutter As per Cardiology Septic shock -treatment as per primary medical team -avoid nephrotoxic IV antibiotics and recommend dose related to GFR related dosing for all medications Avoid contrast studies at this time Avoid nonsteroidal anti-inflammatory drugs Rest of care as per primary medical team will monitor closely Plan discussed with: Patient Dietary Evaluation Review Comments: 1) Initiate MVI @ 1 tb qd 2) Add cardiac restriction to renal diet 3) Encourage optimal PO intake 4) Follow-up with cardiology, pulmonology, and nephrology 5) Continue to monitor I&O, labs, and skin integrity Expected Outcomes/Goals: 1) appetite and labs to improve 2) wounds to improve 3) f/u in 3-5 days HAROLDO REYEZ MD Apr 09, 2025 09:41
[2025-04-09] MEDS: VANCOMYCIN 1GM/250ML KIT 250 ML IV SCH (11:27)
--- NOTE | 2025-04-09 17:39 | DVHPNRES ---
Progress Note Date Seen: Apr 09, 2025 Resident Creating Document: LIZETTE MAI RESIDENT Medical Necessity Reason Pt with a Central, PICC or Fol: Yes The following are medically ne: Peters Catheter Reason for peters catheter: Strict I&O Subjective Review of Systems Darian Curran is a 84-year-old male patient who presents to ED with chief complaint of nonhealing bilateral lower limb wounds (right worse than left), generalized weakness, confusion and dyspnea in variable functional class which has progressively worsened in the past three weeks. Daughter came to visit father and saw lower limbs, prompting the visit to the ED. Patient was on p.o. diuretics (Lasix), with reduced oral intake of food and liquids in the past three weeks (patient believes is secondary to adverse effect of radiotherapy since it is harder for him to swallow). Patient reports history of bladder cancer, only had one visit with urologist who completed laser surgery of bladder, but did not have follow up for over a year. Patient also reports history of DVT in right lower extremity, he is currently on Eliquis. Denies any other associated symptoms including chest pain, nausea, vomiting, diarrhea. 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 [id number] is daughter). Ex tobacco abuse (50 pack-year history of smoking), quit in 2009. Denies current tobacco, alcohol and other drug abuse. Allergies: Denies Home medication: Apixaban, metoprolol, colchicine, vitamin B12, Trelegy, tamsulosin, finasteride, lisinopril, furosemide, potassium chloride, levothyroxine 04/07/2025 Patient seen and examined at bedside Patient is currently on 2 L/min of oxygen through nasal cannula Mentioned no other complaint 04/08/2025: Patient seen in [facility]. Currently requiring 2-3 L oxygen via nasal cannula. On minimal vasopressors. Able to tolerate diet. Appropriate urine output 700-800 mL. No any other new complaints. 04/09/2025: Patient is sedated you. Currently on baseline 2 L oxygen via nasal cannula. On vasopressor Levophed :2 mcq. Urine output at least 1 L in 24 hours. The patient's appetite improved. No any other new complaint Objective vital signs Vital Sign Date Time Temp Pulse Resp B/P (MAP) Pulse Ox O2 Delivery O2 Flow Rate FiO2 04/09/25 16:15 93 18 120/78 (92) 100 04/09/25 16:00 97.8 97.8 04/09/25 16:00 Nasal Cannula* 2 28 Total Intake and Output 04/08/25 04/08/25 04/09/25 15:00 23:00 07:00 Intake Total 804.75 ml 2096.875 ml 923.75 ml Output Total 950 ml 800 ml Balance 804.75 ml 1146.875 ml 123.75 ml medications Current Medications Medications Dose Ordered Sig/Angelito Route Start Time Stop Time Status Last Admin Dose Admin Acetaminophen 325 mg Q4HP PRN PO 04/06/25 22:00 04/09/25 04:43 325 MG Ondansetron HCl 4 mg Q4HP PRN IV 04/06/25 22:00 Meropenem 50 ml @ 17 mls/hr Q8HR IV 04/07/25 06:00 UNV Sodium Chloride 1,000 ml @ 75 mls/hr [id number] IV 04/07/25 00:00 04/09/25 05:20 75 MLS/HR Norepinephrine Bitartrate 250 ml @ 3.75 mls/hr Q24H IV 04/07/25 04:15 04/09/25 04:42 3.75 MLS/HR Pantoprazole Sodium 40 mg DAILY IV 04/07/25 10:00 04/09/25 10:14 40 MG Docusate Sodium 100 mg BIDPRN PRN PO 04/07/25 08:30 Levothyroxine Sodium 175 mcg QAM@0600 PO 04/08/25 06:00 04/09/25 06:17 175 MCG Atorvastatin Calcium 20 mg HS PO 04/08/25 22:00 04/08/25 21:58 20 MG Acetaminophen 650 mg Q6HP PRN PO 04/07/25 17:00 Meropenem 50 ml @ 17 mls/hr Q8H IV 04/08/25 12:00 04/09/25 13:32 17 MLS/HR Enoxaparin Sodium 90 mg Q12HR SC 04/08/25 22:00 04/09/25 10:15 90 MG Enteral Nutritional Formula 240 ml TIDWM PO 04/08/25 18:00 04/09/25 12:00 240 ML Vancomycin HCl 0 ml @ 0 mls/hr UD IV 04/08/25 17:00 Vancomycin HCl 250 ml @ 250 mls/hr Q18H IV 04/09/25 11:00 04/09/25 11:27 250 MLS/HR Examination General Appearance: Cooperative. Well developed. Well nourished. NAD Head Exam: Normal inspection Neck Exam: Normal inspection. Non-tender. Normal alignment Pulmonary/Respiratory: Chest non-tender. Bilateral lower lung base crackles, no wheezing Cardiovascular/Chest: Regular rate and rhythm. No murmurs. No JVD. Peripheral Pulses: 2+ Radial (R). 2+ Radial (L). 2+ Pedal (R). 2+ Pedal (L) Abdominal Exam: Normal bowel sounds. Soft. Nontender. No hepatospenomegaly. No masses Ankle Exam: Negative ankle edema Lower extremities: Warm bilateral erythema, weeping fluid from right side, warm to touch bilateral feet,Discolored and brittle toenails Neuro/Mental Status: A&O x4. Coherent laboratory and microbiology Laboratory Tests 04/09/25 02:50 Test 04/09/25 02:50 Range/Units Serum Glucose 95 74-106 mg/dL Microbiology Date/Time Source Procedure Growth Status 04/07/25 17:25 Foot Gram Stain - Final Resulted 04/07/25 17:25 Foot Wound Culture - Preliminary Resulted 04/06/25 19:31 Voided Urine Urine Culture - Final Complete 04/06/25 19:25 Blood Blood Culture - Preliminary NO GROWTH AFTER 48 HOURS OF INCUBATION. 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 daily Popliteal artery Aneurysm -Lovenox History of hypertension Currently hypotensive Dyslipidemia -atorvastatin 20 p.o. daily Peripheral vascular disease -Anticoagulation:Lovenox, -Atorvastatin 20mg po daily Respiratory Acute on chronic hypoxic respiratory failure (home oxygen 2 L/min) Chronic obstructive pulmonary disease exacerbation -continue oxygen via nasal cannula 2 L per minute Infection Sepsis with septic shock due to UTI and bilateral lower extremity cellulitis -IV fluids NS 75 mL/hour -IV antibiotic: Meropenem, vancomycin -Currently on norepinephrine drip: 2-4 mics per minute -MRSA screen : Negative -Blood culture: No growth till now -Urine culture : Prelim culture less than 82360 CFU/mL -Wound culture -Wound care -Lactic acid : 1.7 Bilateral lower leg cellulitis leg wound ulcer, right-sided posterior surface POA yes -IV antibiotics -Wound culture Complicated UTI -continue management of sepsis Nephrology/ CHAIM and CKD due to vasomotor nephropathy due to sepsis, CKD stage 3 -creatinine: 3.32, 1.25 -GFR: 18, 57 -continue IV fluid : NS 75 mL/hour -strict I&O -Nephrology consulted Anion gap metabolic acidosis with compensatory respiratory alkalosis due to sepsis/uremia -improved -anion gap: 11 on 04/08/2025 BPH Hold tamsulosin because of hypotension Oncology # Squamous cell carcinoma in ears status post 22 sessions of radiotherapy complicated by decreased food intake due to parotid gland radiation Bladder cancer status post laser treatment Bladder Calcification Seen on CT Urology consultation # History of DVT Currently on lovenox # Ex tobacco abuse (50 pack-year history of smoking), quit in 2009. #DVT prophylaxis:lovenox #PUD prophylaxis: Protonix Right IJ central line: 04/07/2025 Discussed case with family members including son. Goals of care has been discussed, greater than 24 minutes. Chemical code. Critical care time spent , 81 minute. including dw son/daughter Plan discussed with Plan discussed with: Patient, Son, Other (RN) My Orders My Orders Orders - LIZETTE MAI RESIDENT Procedure Category Date Status Time Vancomycin 1gm/250ml PHA 04/09/25 In Process Kit 11:00 Vancomycin,Trough LAB 04/10/25 Verified 22:00 Vancomycin Per HARLAN 04/10/25 In Process Pharmacy Protoc 23:00 Creatinine LAB 04/10/25 Verified 05:00 Communication Order ORDERS 04/09/25 Transmitted 07:38 Cleanse Wound With HARLAN 04/09/25 In Process Wound Clean 11:12 Apply Barrier Cream [facility] 04/09/25 In Process 11:12 Dietary Evaluation Review Comments: 1) Initiate MVI @ 1 tb qd 2) Add cardiac restriction to renal diet 3) Encourage optimal PO intake 4) Follow-up with cardiology, pulmonology, and nephrology 5) Continue to monitor I&O, labs, and skin integrity Expected Outcomes/Goals: 1) appetite and labs to improve 2) wounds to improve 3) f/u in 3-5 days Date of Service: Apr 09, 2025 Billing Provider: BRUNO HERNANDEZ MD Common Visit Codes: 46088-[id number] CARE 30-74 MIN, 08102-FSLXEQCH CARE-EACH +30MIN LIZETTE MAI RESIDENT Apr 09, 2025 17:39 BRUNO HERNANDEZ MD Apr 10, 2025 15:17
[2025-04-10] VITALS (96 sets, daily range): BP systolic 88–128; BP diastolic 48–86; PULSE 9–146; RESP 12–24; TEMP 97.9–98.8; O2SAT 92–100
[2025-04-10 02:42] LABS: Hematocrit 34.9 % (41.0-53.0); Hemoglobin 12.0 g/dL (13.5-17.5); Mean Corpuscular Hemoglobin 35.1 pg (28.0-32.0); Mean Corpuscular Volume 102.1 fL (80.0-100.0); Nucleated Red Blood Cells % 0.0 %
[2025-04-10 02:52] LABS: Potassium 3.9 mmol/L (3.5-5.1); Sodium 141 mmol/L (136-145)
[2025-04-10 02:53] LABS: Anion Gap 9 (5-15); Carbon Dioxide 23 mmol/L (20-31)
[2025-04-10 02:58] LABS: BUN/Creatinine Ratio 24.4 (10.0-20.0); Blood Urea Nitrogen 19 mg/dL (9-23); Glucose 100 mg/dL (74-106)
[2025-04-10 03:23] LABS: Calcium 8.6 mg/dL (8.7-10.4); Chloride 109 mmol/L (98-107)
[2025-04-10] MEDS: NOREPINEPHRINE 8 MG/250ML KIT 250 ML IV SCH (10:00)
--- NOTE | 2025-04-10 10:29 | DVHPNRES ---
Progress Note Date Seen: Apr 10, 2025 Resident Creating Document: LIZETTE MAI RESIDENT Medical Necessity Reason Pt with a Central, PICC or Fol: Yes The following are medically ne: Peters Catheter Reason for peters catheter: Strict I&O Subjective Review of Systems Darian Curran is a 84-year-old male patient who presents to ED with chief complaint of nonhealing bilateral lower limb wounds (right worse than left), generalized weakness, confusion and dyspnea in variable functional class which has progressively worsened in the past three weeks. Daughter came to visit father and saw lower limbs, prompting the visit to the ED. Patient was on p.o. diuretics (Lasix), with reduced oral intake of food and liquids in the past three weeks (patient believes is secondary to adverse effect of radiotherapy since it is harder for him to swallow). Patient reports history of bladder cancer, only had one visit with urologist who completed laser surgery of bladder, but did not have follow up for over a year. Patient also reports history of DVT in right lower extremity, he is currently on Eliquis. Denies any other associated symptoms including chest pain, nausea, vomiting, diarrhea. 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 [id number] is daughter). Ex tobacco abuse (50 pack-year history of smoking), quit in 2009. Denies current tobacco, alcohol and other drug abuse. Allergies: Denies Home medication: Apixaban, metoprolol, colchicine, vitamin B12, Trelegy, tamsulosin, finasteride, lisinopril, furosemide, potassium chloride, levothyroxine 04/07/2025 Patient seen and examined at bedside Patient is currently on 2 L/min of oxygen through nasal cannula Mentioned no other complaint 04/08/2025: Patient seen in [facility]. Currently requiring 2-3 L oxygen via nasal cannula. On minimal vasopressors. Able to tolerate diet. Appropriate urine output 700-800 mL. No any other new complaints. 04/09/2025: Patient seen in [facility]. Currently on baseline 2 L oxygen via nasal cannula. On vasopressor Levophed :2 mcq. Urine output at least 1 L in 24 hours. The patient's appetite improved. No any other new complaint 04/10/2025: Patient seen in [facility]. Currently on baseline 2 L oxygen via nasal cannula. On vasopressor Levophed :1 mcq. . The patient's appetite improved. No any other new complaint Objective vital signs Vital Sign Date Time Temp Pulse Resp B/P (MAP) Pulse Ox O2 Delivery O2 Flow Rate FiO2 04/10/25 09:46 103/52 04/10/25 08:00 16 99 Nasal Cannula* 2 28 04/10/25 08:00 9 04/10/25 04:00 98.1 98.1 Total Intake and Output 04/09/25 04/09/25 04/10/25 15:00 23:00 07:00 Intake Total 22.50 ml 412.625 ml 1049.625 ml Output Total 420 ml 680 ml Balance 22.50 ml -7.375 ml 369.625 ml medications Current Medications Medications Dose Ordered Sig/Angelito Route Start Time Stop Time Status Last Admin Dose Admin Acetaminophen 325 mg Q4HP PRN PO 04/06/25 22:00 04/09/25 04:43 325 MG Ondansetron HCl 4 mg Q4HP PRN IV 04/06/25 22:00 Meropenem 50 ml @ 17 mls/hr Q8HR IV 04/07/25 06:00 UNV Sodium Chloride 1,000 ml @ 75 mls/hr [id number] IV 04/07/25 00:00 04/09/25 18:52 75 MLS/HR Pantoprazole Sodium 40 mg DAILY IV 04/07/25 10:00 04/10/25 09:44 40 MG Docusate Sodium 100 mg BIDPRN PRN PO 04/07/25 08:30 Levothyroxine Sodium 175 mcg QAM@0600 PO 04/08/25 06:00 04/10/25 05:36 175 MCG Atorvastatin Calcium 20 mg HS PO 04/08/25 22:00 04/09/25 22:32 20 MG Acetaminophen 650 mg Q6HP PRN PO 04/07/25 17:00 Meropenem 50 ml @ 17 mls/hr Q8H IV 04/08/25 12:00 04/10/25 05:27 17 MLS/HR Enoxaparin Sodium 90 mg Q12HR SC 04/08/25 22:00 04/10/25 09:46 90 MG Enteral Nutritional Formula 240 ml TIDWM PO 04/08/25 18:00 04/10/25 08:00 240 ML Vancomycin HCl 0 ml @ 0 mls/hr UD IV 04/08/25 17:00 Vancomycin HCl 250 ml @ 250 mls/hr Q18H IV 04/09/25 11:00 04/10/25 05:28 250 MLS/HR Norepinephrine Bitartrate 250 ml @ 0.938 mls/ hr Q24H IV 04/10/25 10:00 Examination General Appearance: Cooperative. Well developed. Well nourished. NAD Head Exam: Normal inspection Neck Exam: Normal inspection. Non-tender. Normal alignment Pulmonary/Respiratory: Chest non-tender. Bilateral lower lung base crackles, no wheezing Cardiovascular/Chest: Regular rate and rhythm. No murmurs. No JVD. Peripheral Pulses: 2+ Radial (R). 2+ Radial (L). 2+ Pedal (R). 2+ Pedal (L) Abdominal Exam: Normal bowel sounds. Soft. Nontender. No hepatospenomegaly. No masses Ankle Exam: Negative ankle edema Lower extremities: Warm bilateral erythema, weeping fluid from right side, warm to touch bilateral feet,Discolored and brittle toenails Neuro/Mental Status: A&O x4. Coherent laboratory and microbiology Laboratory Tests 04/10/25 02:23 Test 04/10/25 02:23 Range/Units Serum Glucose 100 74-106 mg/dL Microbiology Date/Time Source Procedure Growth Status 04/07/25 17:25 Foot Gram Stain - Final Resulted 04/07/25 17:25 Foot Wound Culture - Preliminary Resulted 04/06/25 19:31 Voided Urine Urine Culture - Final Complete 04/06/25 19:25 Blood Blood Culture - Preliminary NO GROWTH AFTER 72 HOURS OF INCUBATION. 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 daily Popliteal artery Aneurysm -Lovenox History of hypertension Currently hypotensive Dyslipidemia -atorvastatin 20 p.o. daily Peripheral vascular disease -Anticoagulation:Lovenox, -Atorvastatin 20mg po daily Respiratory Acute on chronic hypoxic respiratory failure (home oxygen 2 L/min) Chronic obstructive pulmonary disease exacerbation -continue oxygen via nasal cannula 2 L per minute Infection Sepsis with septic shock due to UTI and bilateral lower extremity cellulitis -IV fluids NS 75 mL/hour -IV antibiotic: Meropenem, vancomycin -Currently on norepinephrine drip: 2-4 mics per minute -MRSA screen : Negative -Blood culture: No growth till now -Urine culture : Prelim culture less than 92449 CFU/mL -Wound culture :gram negative bacteria -Wound care -Lactic acid : 1.7 Bilateral lower leg cellulitis leg wound ulcer, right-sided posterior surface POA yes -IV antibiotics -Wound culture Complicated UTI -continue management of sepsis Nephrology/ CHAIM and CKD due to vasomotor nephropathy due to sepsis, CKD stage 3 -creatinine: 3.32, 1.25,0.78 -GFR: 18, 57 ,88 -continue IV fluid : NS 75 mL/hour -strict I&O -Nephrology consulted Anion gap metabolic acidosis with compensatory respiratory alkalosis due to sepsis/uremia -improved -anion gap: 11 on 04/08/2025 BPH Hold tamsulosin because of hypotension Oncology # Squamous cell carcinoma in ears status post 22 sessions of radiotherapy complicated by decreased food intake due to parotid gland radiation Bladder cancer status post laser treatment Bladder Calcification Seen on CT Urology consultation H/o laser ablation of bladder # History of DVT Currently on lovenox # Ex tobacco abuse (50 pack-year history of smoking), quit in 2009. #DVT prophylaxis:lovenox #PUD prophylaxis: Protonix Right IJ central line: 04/07/2025 Goals of care has been discussed, greater than 24 minutes. Chemical code. Critical care time spent , 56 minute. Plan discussed with Plan discussed with: Patient, Other (RN) My Orders My Orders Orders - LIZETTE MAI Procedure Category Date Status Time Cleanse Wound With [facility] 04/09/25 In Process Wound Clean 11:12 Apply Barrier Cream [facility] 04/09/25 In Process 11:12 Norepinephrine 8 PHA 04/10/25 In Process Mg/250ml Kit 10:00 Chest Portable XY 04/10/25 Logged 09:58 Dietary Evaluation Review Comments: 1) Initiate MVI @ 1 tb qd 2) Add cardiac restriction to renal diet 3) Encourage optimal PO intake 4) Follow-up with cardiology, pulmonology, and nephrology 5) Continue to monitor I&O, labs, and skin integrity Expected Outcomes/Goals: 1) appetite and labs to improve 2) wounds to improve 3) f/u in 3-5 days Date of Service: Apr 10, 2025 Billing Provider: BRUNO HERNANDEZ MD Common Visit Codes: [id number] CARE 30-74 MIN LIZETTE MAI Apr 10, 2025 10:28 BRUNO HERNANDEZ MD Apr 11, 2025 12:55
--- NOTE | 2025-04-10 11:51 | DVH ---
INDICATION: Possible Pneumonia TECHNIQUE: One view of the chest is provided COMPARISON: XY CHEST XRAY 1 VIEW on DOS: 04/07/25, XY CHEST PORTABLE on DOS: 04/06/25, XY CHEST XRAY 1 VIEW on DOS: 04/07/25 FINDINGS: The cardiomediastinal silhouette is stable. There is a 2 lead cardiac pacer. There is aortic atheros clerosis. There is a right neck catheter with the tip projecting over the upper SVC. There are calci fied mediastinal and hilar lymph nodes. There is no pneumothorax. There is no significant pleural eff usion. There is right basilar airspace disease. IMPRESSION: No interval change.
--- NOTE | 2025-04-10 15:42 | DVHPN2 ---
Progress Note Date Seen: Apr 10, 2025 Medical Necessity Reason Pt with a Central, PICC or Fol: Yes The following are medically ne: Peters Catheter Reason for peters catheter: Strict I&O Subjective Review of Systems: Deferred Objective vital signs Vital Sign Date Time Temp Pulse Resp B/P (MAP) Pulse Ox O2 Delivery O2 Flow Rate FiO2 04/10/25 14:15 126 21 98/61 (73) 99 04/10/25 14:00 Nasal Cannula* 2 28 04/10/25 12:00 98.8 98.8 Total Intake and Output 04/09/25 04/09/25 04/10/25 15:00 23:00 07:00 Intake Total 22.50 ml 412.625 ml 1049.625 ml Output Total 420 ml 680 ml Balance 22.50 ml -7.375 ml 369.625 ml medications Current Medications Medications Dose Ordered Sig/Angelito Route Start Time Stop Time Status Last Admin Dose Admin Acetaminophen 325 mg Q4HP PRN PO 04/06/25 22:00 04/09/25 04:43 325 MG Ondansetron HCl 4 mg Q4HP PRN IV 04/06/25 22:00 Meropenem 50 ml @ 17 mls/hr Q8HR IV 04/07/25 06:00 UNV Sodium Chloride 1,000 ml @ 75 mls/hr [id number] IV 04/07/25 00:00 04/09/25 18:52 75 MLS/HR Pantoprazole Sodium 40 mg DAILY IV 04/07/25 10:00 04/10/25 09:44 40 MG Docusate Sodium 100 mg BIDPRN PRN PO 04/07/25 08:30 Levothyroxine Sodium 175 mcg QAM@0600 PO 04/08/25 06:00 04/10/25 05:36 175 MCG Atorvastatin Calcium 20 mg HS PO 04/08/25 22:00 04/09/25 22:32 20 MG Acetaminophen 650 mg Q6HP PRN PO 04/07/25 17:00 Meropenem 50 ml @ 17 mls/hr Q8H IV 04/08/25 12:00 04/10/25 12:16 17 MLS/HR Enoxaparin Sodium 90 mg Q12HR SC 04/08/25 22:00 04/10/25 09:46 90 MG Enteral Nutritional Formula 240 ml TIDWM PO 04/08/25 18:00 04/10/25 13:19 240 ML Vancomycin HCl 0 ml @ 0 mls/hr UD IV 04/08/25 17:00 Vancomycin HCl 250 ml @ 250 mls/hr Q18H IV 04/09/25 11:00 04/10/25 05:28 250 MLS/HR Norepinephrine Bitartrate 250 ml @ 0.938 mls/ hr Q24H IV 04/10/25 10:00 Amiodarone HCL/ Dextrose 200 ml @ 16.66 mls/ hr Q12H IV 04/10/25 22:00 UNV Examination: GENERAL:Normal, CVS:Abnormal, SKIN:Abnormal laboratory and microbiology Laboratory Tests 04/10/25 02:23 Test 04/10/25 02:23 Range/Units Serum Glucose 100 74-106 mg/dL Microbiology Date/Time Source Procedure Growth Status 04/07/25 17:25 Foot Gram Stain - Final Resulted 04/07/25 17:25 Wound Culture - Preliminary Pseudomonas aeruginosa Resulted 04/06/25 19:31 Voided Urine Urine Culture - Final Complete 04/06/25 19:25 Blood Blood Culture - Preliminary NO GROWTH AFTER 72 HOURS OF INCUBATION. Resulted Problem List/Assessment/Plan Problem List/Assessment/Plan Acute kidney injury hemodynamically mediated -multiple hypotensive episodes atrial flutter and shock contributing to decreased renal perfusion -pressors to maintain mean arterial pressure greater than 65 -cardiology on board for rate control -treatment of infection -CHAIM has resolved peters came out monitor labs, no new res Mild chronic kidney disease stage II Atrial flutter As per Cardiology Septic shock -treatment as per primary medical team -avoid nephrotoxic IV antibiotics and recommend dose related to GFR related dosing for all medications Avoid contrast studies at this time Avoid nonsteroidal anti-inflammatory drugs Rest of care as per primary medical team peters was removed, stable renal function. no further recommendations Plan discussed with: Patient Dietary Evaluation Review Comments: 1) Initiate MVI @ 1 tb qd 2) Add cardiac restriction to renal diet 3) Encourage optimal PO intake 4) Follow-up with cardiology, pulmonology, and nephrology 5) Continue to monitor I&O, labs, and skin integrity Expected Outcomes/Goals: 1) appetite and labs to improve 2) wounds to improve 3) f/u in 3-5 days HAROLDO REYEZ MD Apr 10, 2025 15:42
[2025-04-10] MEDS ORDERED: AMIODARONE 360mg/200mL PREMIX 200 ML IV ONE (16:00)
[2025-04-10] MEDS: AMIODARONE BOLUS KIT 100 ML IV ONE (16:23)
[2025-04-10] MEDS ORDERED: AMIODARONE 360mg/200mL PREMIX 200 ML IV SCH (22:00)
[2025-04-11] VITALS (60 sets, daily range): BP systolic 93–167; BP diastolic 55–119; PULSE 72–123; RESP 10–23; TEMP 97.7–98.6; O2SAT 93–100
[2025-04-11 03:07] LABS: Hematocrit 32.4 % (41.0-53.0); Hemoglobin 11.1 g/dL (13.5-17.5); Mean Corpuscular Hemoglobin 34.7 pg (28.0-32.0); Mean Corpuscular Volume 101.8 fL (80.0-100.0); Nucleated Red Blood Cells % 0.1 %
[2025-04-11 03:17] LABS: Anion Gap 8 (5-15); Carbon Dioxide 24 mmol/L (20-31); Chloride 107 mmol/L (98-107); Potassium 3.6 mmol/L (3.5-5.1); Sodium 139 mmol/L (136-145)
[2025-04-11 03:24] LABS: BUN/Creatinine Ratio 22.4 (10.0-20.0); Blood Urea Nitrogen 15 mg/dL (9-23)
[2025-04-11 03:43] LABS: Calcium 8.1 mg/dL (8.7-10.4); Glucose 107 mg/dL (74-106); Magnesium 1.4 mg/dL (1.6-2.6)
[2025-04-11] MEDS: MAGNESIUM SULFATE 1GM/100ML 100 ML IV ONE (09:01)
--- NOTE | 2025-04-11 11:47 | MEDREC ---
[facility] Intervention Section I [facility] Intervention: Review courses of therapy (Wound culture shows Pseudomonas susceptible to cefepime, please consider d/c vancomycin + meropenem, and initiate cefepime) SERGEY JOVEL [facility] RESIDENT Apr 11, 2025 11:47
[2025-04-11] MEDS: VANCOMYCIN 1GM/250ML KIT 250 ML IV SCH (12:03)
[2025-04-11] MEDS: AMIODARONE HCL 200 MG TAB PO SCH (16:13)
--- NOTE | 2025-04-11 17:50 | DVHPNRES ---
Progress Note Date Seen: Apr 11, 2025 Resident Creating Document: LIZETTE MAI RESIDENT Medical Necessity Reason Pt with a Central, PICC or Fol: Yes The following are medically ne: Peters Catheter Reason for peters catheter: Strict I&O Subjective Review of Systems Darian Curran is a 84-year-old male patient who presents to ED with chief complaint of nonhealing bilateral lower limb wounds (right worse than left), generalized weakness, confusion and dyspnea in variable functional class which has progressively worsened in the past three weeks. Daughter came to visit father and saw lower limbs, prompting the visit to the ED. Patient was on p.o. diuretics (Lasix), with reduced oral intake of food and liquids in the past three weeks (patient believes is secondary to adverse effect of radiotherapy since it is harder for him to swallow). Patient reports history of bladder cancer, only had one visit with urologist who completed laser surgery of bladder, but did not have follow up for over a year. Patient also reports history of DVT in right lower extremity, he is currently on Eliquis. Denies any other associated symptoms including chest pain, nausea, vomiting, diarrhea. 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 [id number] is daughter). Ex tobacco abuse (50 pack-year history of smoking), quit in 2009. Denies current tobacco, alcohol and other drug abuse. Allergies: Denies Home medication: Apixaban, metoprolol, colchicine, vitamin B12, Trelegy, tamsulosin, finasteride, lisinopril, furosemide, potassium chloride, levothyroxine 04/07/2025 Patient seen and examined at bedside Patient is currently on 2 L/min of oxygen through nasal cannula Mentioned no other complaint 04/08/2025: Patient seen in [facility]. Currently requiring 2-3 L oxygen via nasal cannula. On minimal vasopressors. Able to tolerate diet. Appropriate urine output 700-800 mL. No any other new complaints. 04/09/2025: Patient seen in [facility]. Currently on baseline 2 L oxygen via nasal cannula. On vasopressor Levophed :2 mcq. Urine output at least 1 L in 24 hours. The patient's appetite improved. No any other new complaint 04/10/2025: Patient seen in [facility]. Currently on baseline 2 L oxygen via nasal cannula. Off vaso pressor. Plan for PT evaluation. The patient's appetite improved. No any other new complaint Objective vital signs Vital Sign Date Time Temp Pulse Resp B/P (MAP) Pulse Ox O2 Delivery O2 Flow Rate FiO2 04/11/25 12:00 97.8 93 13 105/65 (78) 93 97.8 04/11/25 08:00 Nasal Cannula* 3 32 Total Intake and Output 04/10/25 04/10/25 04/11/25 15:00 23:00 07:00 Intake Total 666.877 ml 1245.668 ml 1425.62 ml Output Total 550 ml 750 ml Balance 666.877 ml 695.668 ml 675.62 ml medications Current Medications Medications Dose Ordered Sig/Angelito Route Start Time Stop Time Status Last Admin Dose Admin Ondansetron HCl 4 mg Q4HP PRN IV 04/06/25 22:00 Meropenem 50 ml @ 17 mls/hr Q8HR IV 04/07/25 06:00 UNV Sodium Chloride 1,000 ml @ 75 mls/hr [id number] IV 04/07/25 00:00 04/10/25 21:20 75 MLS/HR Docusate Sodium 100 mg BIDPRN PRN PO 04/07/25 08:30 Levothyroxine Sodium 175 mcg QAM@0600 PO 04/08/25 06:00 04/11/25 05:41 175 MCG Atorvastatin Calcium 20 mg HS PO 04/08/25 22:00 04/10/25 22:04 20 MG Acetaminophen 650 mg Q6HP PRN PO 04/07/25 17:00 Meropenem 50 ml @ 17 mls/hr Q8H IV 04/08/25 12:00 04/11/25 13:05 17 MLS/HR Enteral Nutritional Formula 240 ml TIDWM PO 04/08/25 18:00 04/11/25 13:56 240 ML Vancomycin HCl 0 ml @ 0 mls/hr UD IV 04/08/25 17:00 Norepinephrine Bitartrate 250 ml @ 0.938 mls/ hr Q24H IV 04/10/25 10:00 Enoxaparin Sodium 100 mg Q12HR SC 04/11/25 22:00 Vancomycin HCl 250 ml @ 250 mls/hr Q12H IV 04/11/25 11:00 04/11/25 12:03 250 MLS/HR Pantoprazole Sodium 40 mg DAILY@0600 PO 04/12/25 06:00 Amiodarone HCl 200 mg Q12HR PO 04/11/25 15:30 04/11/25 16:13 200 MG Examination General Appearance: Cooperative. Well developed. Well nourished. NAD Head Exam: Normal inspection Neck Exam: Normal inspection. Non-tender. Normal alignment Pulmonary/Respiratory: Chest non-tender. Bilateral lower lung base crackles, no wheezing Cardiovascular/Chest: Regular rate and rhythm. No murmurs. No JVD. Peripheral Pulses: 2+ Radial (R). 2+ Radial (L). 2+ Pedal (R). 2+ Pedal (L) Abdominal Exam: Normal bowel sounds. Soft. Nontender. No hepatospenomegaly. No masses Ankle Exam: Negative ankle edema Lower extremities: Warm bilateral erythema, weeping fluid from right side, warm to touch bilateral feet,Discolored and brittle toenails Neuro/Mental Status: A&O x4. Coherent laboratory and microbiology Laboratory Tests 04/11/25 02:45 Test 04/11/25 02:45 Range/Units Serum Glucose 107 H 74-106 mg/dL Microbiology Date/Time Source Procedure Growth Status 04/07/25 17:25 Foot Gram Stain - Final Complete 04/07/25 17:25 Wound Culture - Final Pseudomonas aeruginosa Morganella morganii Complete 04/06/25 19:31 Voided Urine Urine Culture - Final Complete 04/06/25 19:25 Blood Blood Culture - Preliminary NO GROWTH AFTER 72 HOURS OF INCUBATION. 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 daily Popliteal artery Aneurysm -Lovenox History of hypertension Currently hypotensive Dyslipidemia -atorvastatin 20 p.o. daily Peripheral vascular disease -Anticoagulation:Lovenox, -Atorvastatin 20mg po daily Respiratory Acute on chronic hypoxic respiratory failure (home oxygen 2 L/min) Chronic obstructive pulmonary disease exacerbation -continue oxygen via nasal cannula 2 L per minute Infection Sepsis with septic shock due to UTI and bilateral lower extremity cellulitis -IV fluids NS 75 mL/hour -IV antibiotic: Meropenem, vancomycin -MRSA screen : Negative -Blood culture: No growth till now -Urine culture : Prelim culture less than 44034 CFU/mL -Wound culture :pseudomonas -Wound care Bilateral lower leg cellulitis leg wound ulcer, right-sided posterior surface POA yes -IV antibiotics -Wound culture Complicated UTI -continue management of sepsis Nephrology/ CHAIM and CKD due to vasomotor nephropathy due to sepsis, CKD stage 3:improved -creatinine: 3.32, 1.25,0.78 -GFR: 18, 57 ,88 -continue IV fluid : NS 75 mL/hour -strict I&O -Nephrology consulted Anion gap metabolic acidosis with compensatory respiratory alkalosis due to sepsis/uremia -improved -anion gap: 11 on 04/08/2025 BPH Hold tamsulosin because of hypotension Oncology # Squamous cell carcinoma in ears status post 22 sessions of radiotherapy complicated by decreased food intake due to parotid gland radiation Bladder cancer status post laser treatment Bladder Calcification Seen on CT Urology consultation H/o laser ablation of bladder # History of DVT Currently on lovenox # Ex tobacco abuse (50 pack-year history of smoking), quit in 2009. #DVT prophylaxis:lovenox #PUD prophylaxis: Protonix Right IJ central line: 04/07/2025 Goals of care has been discussed, greater than 24 minutes. Chemical code. Critical care time spent , 54 minute. Plan discussed with Dr. Kumar Plan discussed with: Patient, Other (RN) My Orders My Orders Orders - LIZETTE MAI RESIDENT Procedure Category Date Status Time Enoxaparin Sodium PHA 04/11/25 In Process (Lovenox) 22:00 Vancomycin 1gm/250ml PHA 04/11/25 In Process Kit 11:00 Vancomycin Per [facility] 04/11/25 In Process Pharmacy Protoc 10:41 Creatinine LAB 04/12/25 Verified 04:00 Vancomycin,Trough LAB 04/13/25 Verified 10:00 Pt Request For Service PT 04/11/25 Logged 13:11 Pantoprazole Tablet PHA 04/12/25 In Process (Protonix Tablet) 06:00 Dietary Evaluation Review Comments: 1) Initiate MVI @ 1 tb qd 2) Add cardiac restriction to renal diet 3) Encourage optimal PO intake 4) Follow-up with cardiology, pulmonology, and nephrology 5) Continue to monitor I&O, labs, and skin integrity Expected Outcomes/Goals: 1) appetite and labs to improve 2) wounds to improve 3) f/u in 3-5 days Date of Service: Apr 11, 2025 Billing Provider: BRUNO HERNANDEZ MD Common Visit Codes: [id number] CARE 30-74 MIN LIZETTE MAI RESIDENT Apr 11, 2025 17:50 BRUNO HERNANDEZ MD Apr 13, 2025 12:19
[2025-04-11] MEDS: ENOXAPARIN SOD 100 MG/1 ML SYRINGE SC SCH (21:24)
[2025-04-11] MEDS ORDERED: AMIODARONE HCL 200 MG TAB PO SCH (22:00)
[2025-04-12] VITALS (24 sets, daily range): BP systolic 93–133; BP diastolic 53–74; PULSE 76–129; RESP 11–22; TEMP 97.4–98.2; O2SAT 96–100
[2025-04-12] MEDS: PANTOPRAZOLE 40 MG TAB PO SCH (05:49)
[2025-04-12 06:03] LABS: Hemoglobin 12.0 g/dL (13.5-17.5)
[2025-04-12 06:05] LABS: Chloride 106 mmol/L (98-107); Potassium 3.6 mmol/L (3.5-5.1); Sodium 139 mmol/L (136-145)
[2025-04-12 06:06] LABS: Anion Gap 8 (5-15); Carbon Dioxide 25 mmol/L (20-31); Hematocrit 34.9 % (41.0-53.0); Mean Corpuscular Hemoglobin 34.6 pg (28.0-32.0); Mean Corpuscular Volume 100.4 fL (80.0-100.0); Nucleated Red Blood Cells % 0.0 %
[2025-04-12 06:11] LABS: BUN/Creatinine Ratio 15.5 (10.0-20.0); Blood Urea Nitrogen 11 mg/dL (9-23); Glucose 80 mg/dL (74-106)
[2025-04-12 06:19] LABS: Calcium 8.3 mg/dL (8.7-10.4)
--- NOTE | 2025-04-12 10:12 | DVHPNRES ---
Progress Note Date Seen: Apr 12, 2025 Resident Creating Document: LIZETTE CANELA RESIDENT Medical Necessity Reason Pt with a Central, PICC or Fol: Yes The following are medically ne: Peters Catheter Reason for peters catheter: Strict I&O Subjective Review of Systems Darian Curran is a 84-year-old male patient who presents to ED with chief complaint of nonhealing bilateral lower limb wounds (right worse than left), generalized weakness, confusion and dyspnea in variable functional class which has progressively worsened in the past three weeks. Daughter came to visit father and saw lower limbs, prompting the visit to the ED. Patient was on p.o. diuretics (Lasix), with reduced oral intake of food and liquids in the past three weeks (patient believes is secondary to adverse effect of radiotherapy since it is harder for him to swallow). Patient reports history of bladder cancer, only had one visit with urologist who completed laser surgery of bladder, but did not have follow up for over a year. Patient also reports history of DVT in right lower extremity, he is currently on Eliquis. Denies any other associated symptoms including chest pain, nausea, vomiting, diarrhea. 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 [id number] is daughter). Ex tobacco abuse (50 pack-year history of smoking), quit in 2009. Denies current tobacco, alcohol and other drug abuse. Allergies: Denies Home medication: Apixaban, metoprolol, colchicine, vitamin B12, Trelegy, tamsulosin, finasteride, lisinopril, furosemide, potassium chloride, levothyroxine 04/07/2025 Patient seen and examined at bedside Patient is currently on 2 L/min of oxygen through nasal cannula Mentioned no other complaint 04/08/2025: Patient seen in [facility]. Currently requiring 2-3 L oxygen via nasal cannula. On minimal vasopressors. Able to tolerate diet. Appropriate urine output 700-800 mL. No any other new complaints. 04/09/2025: Patient seen in [facility]. Currently on baseline 2 L oxygen via nasal cannula. On vasopressor Levophed :2 mcq. Urine output at least 1 L in 24 hours. The patient's appetite improved. No any other new complaint 04/10/2025: Patient seen in [facility]. Currently on baseline 2 L oxygen via nasal cannula. Off vaso pressor. Plan for PT evaluation. The patient's appetite improved. No any other new complaint 04/12/2025: patient seen in [facility]. on 2 L O2 via NC. off vasopressor. plan for PT. downgrade to telemetry. Objective vital signs Vital Sign Date Time Temp Pulse Resp B/P (MAP) Pulse Ox O2 Delivery O2 Flow Rate FiO2 04/12/25 08:00 97.5 91 16 109/60 (76) 99 97.5 04/12/25 05:33 Nasal Cannula* 3 32 Total Intake and Output 04/11/25 04/11/25 04/12/25 15:00 23:00 07:00 Intake Total 933.96 ml 1171.66 ml 1025 ml Output Total 1275 ml 1450 ml Balance 933.96 ml -103.34 ml -425 ml medications Current Medications Medications Dose Ordered Sig/Angelito Route Start Time Stop Time Status Last Admin Dose Admin Ondansetron HCl 4 mg Q4HP PRN IV 04/06/25 22:00 Meropenem 50 ml @ 17 mls/hr Q8HR IV 04/07/25 06:00 UNV Sodium Chloride 1,000 ml @ 75 mls/hr [id number] IV 04/07/25 00:00 04/11/25 20:03 75 MLS/HR Docusate Sodium 100 mg BIDPRN PRN PO 04/07/25 08:30 Levothyroxine Sodium 175 mcg QAM@0600 PO 04/08/25 06:00 04/12/25 05:49 175 MCG Atorvastatin Calcium 20 mg HS PO 04/08/25 22:00 04/11/25 21:23 20 MG Acetaminophen 650 mg Q6HP PRN PO 04/07/25 17:00 Meropenem 50 ml @ 17 mls/hr Q8H IV 04/08/25 12:00 04/12/25 03:54 17 MLS/HR Enteral Nutritional Formula 240 ml TIDWM PO 04/08/25 18:00 04/11/25 13:56 240 ML Vancomycin HCl 0 ml @ 0 mls/hr UD IV 04/08/25 17:00 Norepinephrine Bitartrate 250 ml @ 0.938 mls/ hr Q24H IV 04/10/25 10:00 Enoxaparin Sodium 100 mg Q12HR SC 04/11/25 22:00 04/11/25 21:24 100 MG Vancomycin HCl 250 ml @ 250 mls/hr Q12H IV 04/11/25 11:00 04/11/25 22:28 250 MLS/HR Pantoprazole Sodium 40 mg DAILY@0600 PO 04/12/25 06:00 04/12/25 05:49 40 MG Amiodarone HCl 200 mg Q12HR PO 04/11/25 15:30 04/11/25 21:23 200 MG Examination General Appearance: Cooperative. Well developed. Well nourished. NAD Head Exam: Normal inspection Neck Exam: Normal inspection. Non-tender. Normal alignment Pulmonary/Respiratory: Chest non-tender. Bilateral lower lung base crackles, no wheezing Cardiovascular/Chest: Regular rate and rhythm. No murmurs. No JVD. Peripheral Pulses: 2+ Radial (R). 2+ Radial (L). 2+ Pedal (R). 2+ Pedal (L) Abdominal Exam: Normal bowel sounds. Soft. Nontender. No hepatospenomegaly. No masses Ankle Exam: Negative ankle edema Lower extremities: Warm bilateral erythema, weeping fluid from right side, warm to touch bilateral feet,Discolored and brittle toenails Neuro/Mental Status: A&O x4. Coherent laboratory and microbiology Laboratory Tests 04/12/25 05:11 Test 04/12/25 05:11 Range/Units Serum Glucose 80 74-106 mg/dL Microbiology Date/Time Source Procedure Growth Status 04/07/25 17:25 Foot Gram Stain - Final Complete 04/07/25 17:25 Wound Culture - Final Pseudomonas aeruginosa Morganella morganii Complete 04/06/25 19:31 Voided Urine Urine Culture - Final Complete 04/06/25 19:25 Blood Blood Culture - Final NO GROWTH AFTER 5 DAYS OF INCUBATION. 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 daily Popliteal artery Aneurysm -Lovenox History of hypertension Dyslipidemia -atorvastatin 20 p.o. daily Peripheral vascular disease -Anticoagulation:Lovenox, -Atorvastatin 20mg po daily Respiratory Acute on chronic hypoxic respiratory failure (home oxygen 2 L/min) Chronic obstructive pulmonary disease exacerbation -continue oxygen via nasal cannula 2 L per minute Infection Sepsis with septic shock due to UTI and bilateral lower extremity cellulitis -IV fluids NS 75 mL/hour -IV antibiotic: Meropenem, vancomycin -MRSA screen : Negative -Blood culture: No growth till now -Urine culture : mix growth -Wound culture :pseudomonas -Wound care Bilateral lower leg cellulitis leg wound ulcer, right-sided posterior surface POA yes -IV antibiotics -Wound culture Complicated UTI -continue management of sepsis Nephrology/ CHAIM and CKD due to vasomotor nephropathy due to sepsis, CKD stage 3:improved -creatinine: 3.32, 1.25,0.78 -GFR: 18, 57 ,88 -continue IV fluid : NS 75 mL/hour -strict I&O -Nephrology consulted Anion gap metabolic acidosis with compensatory respiratory alkalosis due to sepsis/uremia -improved -anion gap: 11 on 04/08/2025 BPH Hold tamsulosin because of hypotension Oncology # Squamous cell carcinoma in ears status post 22 sessions of radiotherapy complicated by decreased food intake due to parotid gland radiation Bladder cancer status post laser treatment Bladder Calcification Seen on CT Urology consultation H/o laser ablation of bladder # History of DVT Currently on lovenox # Ex tobacco abuse (50 pack-year history of smoking), quit in 2009. #DVT prophylaxis:lovenox #PUD prophylaxis: Protonix Right IJ central line: 04/07/2025: remove 04/12/2025 #plan for downgrade to tele, PT evaluation, continue abx and O2 via NC. Goals of care has been discussed, greater than 24 minutes. Chemical code. Critical care time spent , 50 minute. Plan discussed with Dr. Kline Impression: Acute on chronic hypoxic respiratory failure Dependence on supplemental oxygen COPD exacerbation Metabolic encephalopathy History of DVT History of nicotine dependence Bilateral lower leg cellulitis CHAIM on CKD Plan: Supplemental oxygen Titrate to keep O2 sats above 92%. Currently on 2 LPM NC Taper O2 as tolerated. No acute overnight events. Continue antibiotics On amiodarone PO. Off Levophed, hemodynamically stable. Patient is stable for downgrade from the pulmonary standpoint. Protonix for GI ppx Monitor renal function. Monitor electrolytes. Supplement as necessary. Monitor ins and outs. Physical Therapy evaluation. DVT prophylaxis. Discussed with RN, Dr. Canela. Prognosis: Guarded given patient's multiple co-morbidities. Rest of plan per hospitalist and other consultants. Thank you for allowing me to participate in this patient's care. Further recommendations will depend on the patient's clinical course. Please do not hesitate to contact me if you have any questions or concerns. This medical document was created using an electronic medical record system with [employer] dictation system. Although these documentations are being carefully reviewed, there may still be some phonetic and typographical changes. The errors are purely typographical, due to imperfection on the software program, and do not reflect any compromise in the patient's medical care. Plan discussed with: Patient, Other (RN) My Orders My Orders Orders - LIZETTE CANELA Procedure Category Date Status Time Enoxaparin Sodium PHA 04/11/25 In Process (Lovenox) 22:00 Vancomycin 1gm/250ml PHA 04/11/25 In Process Kit 11:00 Vancomycin Per [facility] 04/11/25 In Process Pharmacy Protoc 10:41 Vancomycin,Trough LAB 04/13/25 Verified 10:00 Pt Request For Service PT 04/11/25 Logged 13:11 Pantoprazole Tablet PHA 04/12/25 In Process (Protonix Tablet) 06:00 Creatinine LAB 04/13/25 Verified 10:00 Transfer Orders XFER 04/12/25 Transmitted 09:57 Dietary Evaluation Review Comments: 1) Initiate MVI @ 1 tb qd 2) Add cardiac restriction to renal diet 3) Encourage optimal PO intake 4) Follow-up with cardiology, pulmonology, and nephrology 5) Continue to monitor I&O, labs, and skin integrity Expected Outcomes/Goals: 1) appetite and labs to improve 2) wounds to improve 3) f/u in 3-5 days LIZETTE CANELA RESIDENT Apr 12, 2025 10:11 RIGO KLINE MD Apr 13, 2025 02:48
[2025-04-13] VITALS (17 sets, daily range): BP systolic 102–127; BP diastolic 59–84; PULSE 73–118; RESP 12–21; TEMP 97–98.7; O2SAT 95–100
[2025-04-13] MEDS: ACETAMINOPHEN 325 MG TAB PO PRN (01:09)
[2025-04-13 08:04] LABS: Hematocrit 33.7 % (41.0-53.0); Hemoglobin 11.6 g/dL (13.5-17.5); Mean Corpuscular Hemoglobin 34.4 pg (28.0-32.0); Mean Corpuscular Volume 100.0 fL (80.0-100.0); Nucleated Red Blood Cells % 0.1 %
[2025-04-13 08:16] LABS: Anion Gap 8 (5-15); Carbon Dioxide 27 mmol/L (20-31); Chloride 105 mmol/L (98-107); Sodium 140 mmol/L (136-145)
[2025-04-13 08:22] LABS: BUN/Creatinine Ratio 16.4 (10.0-20.0); Blood Urea Nitrogen 12 mg/dL (9-23); Glucose 89 mg/dL (74-106)
[2025-04-13 08:28] LABS: Calcium 8.1 mg/dL (8.7-10.4); Potassium 3.3 mmol/L (3.5-5.1)
[2025-04-13] MEDS ORDERED: POTASSIUM CHL 20MEQ/100ML 100 ML IV ONE (10:00)
[2025-04-13] MEDS: POTASSIUM CHLORIDE 20 MEQ, LIDOCAINE 1% (LOCAL ANESTH.) 2 ML in SODIUM CHL 0.9% 100 ML IV ONE (11:30)
--- NOTE | 2025-04-13 17:44 | DVHPNRES ---
Progress Note Date Seen: Apr 13, 2025 Resident Creating Document: HANK AHN RESIDENT Medical Necessity Reason Pt with a Central, PICC or Fol: Yes The following are medically ne: Peters Catheter Reason for peters catheter: Strict I&O Subjective Review of Systems Darian Curran is a 84-year-old male patient who presents to ED with chief complaint of nonhealing bilateral lower limb wounds (right worse than left), generalized weakness, confusion and dyspnea in variable functional class which has progressively worsened in the past three weeks. Daughter came to visit father and saw lower limbs, prompting the visit to the ED. Patient was on p.o. diuretics (Lasix), with reduced oral intake of food and liquids in the past three weeks (patient believes is secondary to adverse effect of radiotherapy since it is harder for him to swallow). Patient reports history of bladder cancer, only had one visit with urologist who completed laser surgery of bladder, but did not have follow up for over a year. Patient also reports history of DVT in right lower extremity, he is currently on Eliquis. Denies any other associated symptoms including chest pain, nausea, vomiting, diarrhea. 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 [id number] is daughter). Ex tobacco abuse (50 pack-year history of smoking), quit in 2009. Denies current tobacco, alcohol and other drug abuse. Allergies: Denies Home medication: Apixaban, metoprolol, colchicine, vitamin B12, Trelegy, tamsulosin, finasteride, lisinopril, furosemide, potassium chloride, levothyroxine 04/07/2025 Patient seen and examined at bedside Patient is currently on 2 L/min of oxygen through nasal cannula Mentioned no other complaint 04/08/2025: Patient seen in [facility]. Currently requiring 2-3 L oxygen via nasal cannula. On minimal vasopressors. Able to tolerate diet. Appropriate urine output 700-800 mL. No any other new complaints. 04/09/2025: Patient seen in [facility]. Currently on baseline 2 L oxygen via nasal cannula. On vasopressor Levophed :2 mcq. Urine output at least 1 L in 24 hours. The patient's appetite improved. No any other new complaint 04/10/2025: Patient seen in [facility]. Currently on baseline 2 L oxygen via nasal cannula. Off vaso pressor. Plan for PT evaluation. The patient's appetite improved. No any other new complaint 04/12/2025: patient seen in [facility]. on 2 L O2 via NC. off vasopressor. plan for PT. downgrade to telemetry. 04/13/25: Patient seen at bedside, on 2 L oxygen, at home also 2 L oxygen, off pressors, walked with PT, downgraded to telemetry and moved to [facility]. Patient wants to be discharge. Stopped IV fluids as patient is eating and drinking water. Objective vital signs Vital Sign Date Time Temp Pulse Resp B/P (MAP) Pulse Ox O2 Delivery O2 Flow Rate FiO2 04/13/25 16:42 97.8 99 18 114/65 (81) 95 97.8 04/13/25 16:20 Nasal Cannula* 2 28 Total Intake and Output 04/12/25 04/12/25 04/13/25 15:00 23:00 07:00 Intake Total 1015 ml 1066 ml 1067 ml Output Total 750 ml 600 ml Balance 1015 ml 316 ml 467 ml medications Current Medications Medications Dose Ordered Sig/Angelito Route Start Time Stop Time Status Last Admin Dose Admin Ondansetron HCl 4 mg Q4HP PRN IV 04/06/25 22:00 Meropenem 50 ml @ 17 mls/hr Q8HR IV 04/07/25 06:00 UNV Docusate Sodium 100 mg BIDPRN PRN PO 04/07/25 08:30 Levothyroxine Sodium 175 mcg QAM@0600 PO 04/08/25 06:00 04/13/25 06:38 175 MCG Atorvastatin Calcium 20 mg HS PO 04/08/25 22:00 04/12/25 21:55 20 MG Acetaminophen 650 mg Q6HP PRN PO 04/07/25 17:00 04/13/25 01:09 650 MG Meropenem 50 ml @ 17 mls/hr Q8H IV 04/08/25 12:00 04/13/25 12:22 17 MLS/HR Enteral Nutritional Formula 240 ml TIDWM PO 04/08/25 18:00 04/13/25 12:45 240 ML Vancomycin HCl 0 ml @ 0 mls/hr UD IV 04/08/25 17:00 Enoxaparin Sodium 100 mg Q12HR SC 04/11/25 22:00 04/13/25 10:25 100 MG Pantoprazole Sodium 40 mg DAILY@0600 PO 04/12/25 06:00 04/13/25 06:24 40 MG Amiodarone HCl 200 mg Q12HR PO 04/11/25 15:30 04/13/25 10:24 200 MG Vancomycin HCl 250 ml @ 166.667 mls/hr Q16H IV 04/13/25 18:00 Examination Patient lying in bed General: Patient alert and oriented in person, place and time. Patient following commands. HEENT: Normocephalic, atraumatic, moist mucous membranes Respiratory/pulmonary: Clear lungs bilaterally, vesicular murmurs present in almost all lung chapman, no associated crackles or wheezes. Cardiovascular: Normal heart sounds S1 and S2 with no associated murmurs Abdomen: Abdomen nondistended, there is no pain to palpation in any of the abdominal quadrants, no palpable masses. Extremities: Warm bilateral erythema, weeping fluid from right side, warm to touch bilateral feet,Discolored and brittle toenails Peripheral Pulses: 3+ Radial (R). 3+ Radial (L). 3+ Dorsalis pedis (R). 3+ Dorsalis pedis(L) Skin: No rashes or pruritus, there is no sacral edema present at this time. Neurological: Intact cranial nerves with no focal neurologic deficits laboratory and microbiology Laboratory Tests 04/13/25 10:50 04/13/25 06:15 Test 04/13/25 06:15 Range/Units Serum Glucose 89 74-106 mg/dL Microbiology Date/Time Source Procedure Growth Status 04/07/25 17:25 Foot Gram Stain - Final Complete 04/07/25 17:25 Wound Culture - Final Pseudomonas aeruginosa Morganella morganii Complete 04/06/25 19:31 Voided Urine Urine Culture - Final Complete 04/06/25 19:25 Blood Blood Culture - Final NO GROWTH AFTER 5 DAYS OF INCUBATION. 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 daily Popliteal artery Aneurysm -Lovenox History of hypertension Dyslipidemia -atorvastatin 20 p.o. daily Peripheral vascular disease -Anticoagulation:Lovenox, -Atorvastatin 20mg po daily Respiratory Acute on chronic hypoxic respiratory failure (home oxygen 2 L/min) Chronic obstructive pulmonary disease exacerbation -continue oxygen via nasal cannula 2 L per minute Infection Sepsis with septic shock due to UTI and bilateral lower extremity cellulitis -IV fluids NS 75 mL/hour -IV antibiotic: Meropenem, vancomycin -MRSA screen : Negative -Blood culture: No growth till now -Urine culture : mix growth -Wound culture :pseudomonas -Wound care Bilateral lower leg cellulitis leg wound ulcer, right-sided posterior surface POA yes -IV antibiotics -Wound culture Complicated UTI -continue management of sepsis Nephrology/ CHAIM and CKD due to vasomotor nephropathy due to sepsis, CKD stage 3:improved -creatinine: 3.32, 1.25,0.78 -GFR: 18, 57 ,88 -continue IV fluid : NS 75 mL/hour -strict I&O -Nephrology consulted Anion gap metabolic acidosis with compensatory respiratory alkalosis due to sepsis/uremia -improved -anion gap: 11 on 04/08/2025 BPH Hold tamsulosin because of hypotension Oncology # Squamous cell carcinoma in ears status post 22 sessions of radiotherapy complicated by decreased food intake due to parotid gland radiation Bladder cancer status post laser treatment Bladder Calcification Seen on CT Urology consultation H/o laser ablation of bladder # History of DVT Currently on lovenox # Ex tobacco abuse (50 pack-year history of smoking), quit in 2009. #DVT prophylaxis:lovenox #PUD prophylaxis: Protonix Right IJ central line: 04/07/2025: remove 04/12/2025 #plan for downgrade to tele, PT evaluation, continue abx and O2 via NC. Goals of care has been discussed, greater than 24 minutes. Chemical code. Critical care time spent , 57 minute. Plan discussed with Dr. Kline Plan discussed with: Patient Dietary Evaluation Review Comments: 1) Initiate MVI @ 1 tb qd 2) Add cardiac restriction to renal diet 3) Encourage optimal PO intake 4) Follow-up with cardiology, pulmonology, and nephrology 5) Continue to monitor I&O, labs, and skin integrity Expected Outcomes/Goals: 1) appetite and labs to improve 2) wounds to improve 3) f/u in 3-5 days HANK AHN RESIDENT Apr 13, 2025 17:44
[2025-04-13] MEDS: VANCOMYCIN 1.5GM/250ML 250 ML IV SCH (18:44)
--- NOTE | 2025-04-13 22:43 | DVHPN2 ---
Subjective DOS: 04/13/2025 Patient seen and examined at bedside. Remains on supplemental oxygen Overnight events reviewed. Changes from previous H/P or p: No Changes Objective Vitals Vital Signs Date Time Temp Pulse Resp B/P (MAP) Pulse Ox O2 Delivery O2 Flow Rate FiO2 04/13/25 21:00 98.7 107 21 126/72 (90) 97 98.7 04/13/25 20:00 Nasal Cannula* 2 28 Intake/Output Intake and Output 04/13/25 07:00 Intake Total 3148 ml Output Total 1350 ml Balance 1798 ml Intake Oral 1080 ml IV Total 2068 ml Output Urine Total 1350 ml Exam Gen.: Patient lying in bed in no apparent distress. On supplemental oxygen. Head: Normocephalic, atraumatic. Eyes: EOMI/PERRLA. Ears: Normal hearing. Normal anatomy. Neck/trachea: Trachea midline, supple. Nose: Normal external anatomy. Mouth: Moist mucous membranes. Chest: Decreased air entry bilaterally. No wheezing or rhonchi. Cardiovascular: Positive S1, positive S2. Regular rate and rhythm. Abdomen: Positive bowel sounds in all 4 quadrants. Soft, non-tender, non- distended. : Deferred. Rectal: Deferred. Skin: Warm, dry. Intact. Extremities: 2+ radial pulses bilaterally. No lower extremity edema. Neuro: Awake, alert, oriented x3. No gross motor or sensory deficits. Cranial nerves II through XII intact. Gait not assessed. Medications Current Medications Medications Dose Ordered Sig/Angelito Route Start Time Stop Time Status Last Admin Dose Admin Ondansetron HCl 4 mg Q4HP PRN IV 04/06/25 22:00 Meropenem 50 ml @ 17 mls/hr Q8HR IV 04/07/25 06:00 UNV Docusate Sodium 100 mg BIDPRN PRN PO 04/07/25 08:30 Levothyroxine Sodium 175 mcg QAM@0600 PO 04/08/25 06:00 04/13/25 06:38 175 MCG Atorvastatin Calcium 20 mg HS PO 04/08/25 22:00 04/13/25 21:44 20 MG Acetaminophen 650 mg Q6HP PRN PO 04/07/25 17:00 04/13/25 01:09 650 MG Meropenem 50 ml @ 17 mls/hr Q8H IV 04/08/25 12:00 04/13/25 20:28 17 MLS/HR Enteral Nutritional Formula 240 ml TIDWM PO 04/08/25 18:00 04/13/25 18:00 240 ML Vancomycin HCl 0 ml @ 0 mls/hr UD IV 04/08/25 17:00 Enoxaparin Sodium 100 mg Q12HR SC 04/11/25 22:00 04/13/25 21:44 100 MG Pantoprazole Sodium 40 mg DAILY@0600 PO 04/12/25 06:00 04/13/25 06:24 40 MG Amiodarone HCl 200 mg Q12HR PO 04/11/25 15:30 04/13/25 21:44 200 MG Vancomycin HCl 250 ml @ 166.667 mls/hr Q16H IV 04/13/25 18:00 04/13/25 18:44 166.667 MLS/HR Laboratory Results Laboratory Tests 04/13/25 06:15 04/13/25 10:50 Chemistry Test 04/13/25 06:15 04/13/25 10:50 Calcium Level 8.1 mg/dL (8.7-10.4) L Magnesium Level 1.5 mg/dL (1.6-2.6) L Urinalysis Test 04/06/25 19:31 04/07/25 06:06 Urine WBC Clumps Present /hpf (None Seen) Urine Mucus Few (None Seen) Urine Color Light-yellow (Yellow) Urine Clarity Clear (Clear) Urine pH 5.0 (5.0-9.0) Urine Specific [place] 1.015 (1.001-1.035) Urine Protein Trace (Negative) H Urine Ketones Trace (Negative) Urine Blood 1+ /uL (Negative) H Urine Nitrite Negative (Negative) Urine Bilirubin Negative (Negative) Urine Urobilinogen Normal mg/dL (Negative) Urine Leukocyte Esterase 1+ /uL (Negative) Urine RBC 12 /hpf (0 - 3) Urine Microscopic WBC 8 /HPF (0-3) H Urine Squamous Epithelial Cells Few /hpf (<5) Urine Bacteria None seen /hpf (None Seen) Urine Hyaline Casts Few /lpf (0 - 2) Urine Yeast (Budding) Occasional /hpf (None Urine Creatinine 92.60 mg/dL (30.0-125.0) Urine Sodium 40 mmol/L (40-220) Urine Glucose Normal mg/dL (Normal) Microbiology Microbiology Date/Time Source Procedure Growth Status 04/07/25 17:25 Foot Gram Stain - Final Complete 04/07/25 17:25 Wound Culture - Final Pseudomonas aeruginosa Morganella morganii Complete 04/06/25 19:31 Voided Urine Urine Culture - Final Complete 04/06/25 19:25 Blood Blood Culture - Final NO GROWTH AFTER 5 DAYS OF INCUBATION. Complete Assessment/Plan Assessment/Plan Impression: Acute on chronic hypoxic respiratory failure Dependence on supplemental oxygen COPD exacerbation Metabolic encephalopathy History of DVT History of nicotine dependence Bilateral lower leg cellulitis CHAIM on CKD Events: Remains on supplemental oxygen, 2 LPM NC Taper O2 as tolerated No acute overnight events. Continue antibiotics Incentive spirometry Patient is stable for discharge from the pulmonary standpoint. Labs and imaging reviewed. Rest of plan as noted below. Plan: Supplemental oxygen Titrate to keep O2 sats above 92%. Continue antibiotics On amiodarone PO. Off pressors, hemodynamically stable. Protonix for GI ppx Monitor renal function. Monitor electrolytes. Supplement as necessary. Monitor ins and outs. Physical Therapy evaluation. DVT prophylaxis. Prognosis: Guarded given patient's multiple co-morbidities. Rest of plan per hospitalist and other consultants. Thank you for allowing me to participate in this patient's care. Further recommendations will depend on the patient's clinical course. Please do not hesitate to contact me if you have any questions or concerns. This medical document was created using an electronic medical record system with [employer] dictation system. Although these documentations are being carefully reviewed, there may still be some phonetic and typographical changes. The errors are purely typographical, due to imperfection on the software program, and do not reflect any compromise in the patient's medical care. Plan discussed with: Patient, Other (DAWN Resendiz) Visit Coding Pulmonary Billing Provider: RIGO ALLRED MD Date of Service if different f: Apr 13, 2025 Common Visit Codes: 52824-[id number] INP/OBS CARE(HIGH) RIGO ALLRED MD Apr 13, 2025 22:43
[2025-04-14] VITALS (9 sets, daily range): BP systolic 103–133; BP diastolic 55–83; PULSE 83–120; RESP 18–20; TEMP 97.8–98.9; O2SAT 95–99
[2025-04-14 06:21] LABS: Hematocrit 32.6 % (41.0-53.0); Hemoglobin 11.3 g/dL (13.5-17.5); Mean Corpuscular Hemoglobin 35.0 pg (28.0-32.0); Mean Corpuscular Volume 100.5 fL (80.0-100.0); Nucleated Red Blood Cells % 0.1 %
[2025-04-14 06:34] LABS: Anion Gap 8 (5-15); Carbon Dioxide 26 mmol/L (20-31); Chloride 106 mmol/L (98-107); Potassium 3.5 mmol/L (3.5-5.1); Sodium 140 mmol/L (136-145)
[2025-04-14 06:41] LABS: BUN/Creatinine Ratio 16.9 (10.0-20.0); Blood Urea Nitrogen 12 mg/dL (9-23); Glucose 78 mg/dL (74-106)
[2025-04-14 06:48] LABS: Calcium 8.1 mg/dL (8.7-10.4)
--- NOTE | 2025-04-14 09:42 | MEDREC ---
[facility] ASP Intervention Section I [facility] ASP Intervention: Deescalate AB based on CS (PLEASE CONSIDER DE-ESCALATION BASED ON CULTURE RESULTS AND SUSCEPTIBILITIES), Review courses of therapy (Wound culture shows Pseudomonas susceptible to cefepime, please consider d/c vancomycin + meropenem, and initiate cefepime) BEVERLY SÁNCHEZ PHARMACIST Apr 14, 2025 09:42
--- NOTE | 2025-04-14 20:09 | DVHPNRES ---
Progress Note Date Seen: Apr 14, 2025 Resident Creating Document: LIZETTE MAI RESIDENT Medical Necessity Reason Pt with a Central, PICC or Fol: Yes The following are medically ne: Peters Catheter Reason for peters catheter: Strict I&O Subjective Review of Systems Darian Curran is a 84-year-old male patient who presents to ED with chief complaint of nonhealing bilateral lower limb wounds (right worse than left), generalized weakness, confusion and dyspnea in variable functional class which has progressively worsened in the past three weeks. Daughter came to visit father and saw lower limbs, prompting the visit to the ED. Patient was on p.o. diuretics (Lasix), with reduced oral intake of food and liquids in the past three weeks (patient believes is secondary to adverse effect of radiotherapy since it is harder for him to swallow). Patient reports history of bladder cancer, only had one visit with urologist who completed laser surgery of bladder, but did not have follow up for over a year. Patient also reports history of DVT in right lower extremity, he is currently on Eliquis. Denies any other associated symptoms including chest pain, nausea, vomiting, diarrhea. 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 [id number] is daughter). Ex tobacco abuse (50 pack-year history of smoking), quit in 2009. Denies current tobacco, alcohol and other drug abuse. Allergies: Denies Home medication: Apixaban, metoprolol, colchicine, vitamin B12, Trelegy, tamsulosin, finasteride, lisinopril, furosemide, potassium chloride, levothyroxine 04/07/2025 Patient seen and examined at bedside Patient is currently on 2 L/min of oxygen through nasal cannula Mentioned no other complaint 04/08/2025: Patient seen in [facility]. Currently requiring 2-3 L oxygen via nasal cannula. On minimal vasopressors. Able to tolerate diet. Appropriate urine output 700-800 mL. No any other new complaints. 04/09/2025: Patient seen in [facility]. Currently on baseline 2 L oxygen via nasal cannula. On vasopressor Levophed :2 mcq. Urine output at least 1 L in 24 hours. The patient's appetite improved. No any other new complaint 04/10/2025: Patient seen in [facility]. Currently on baseline 2 L oxygen via nasal cannula. Off vaso pressor. Plan for PT evaluation. The patient's appetite improved. No any other new complaint 04/12/2025: patient seen in [facility]. on 2 L O2 via NC. off vasopressor. plan for PT. downgrade to telemetry. 04/13/25: Patient seen at bedside, on 2 L oxygen, at home also 2 L oxygen, off pressors, walked with PT, downgraded to telemetry and moved to [facility]. Patient wants to be discharge. Stopped IV fluids as patient is eating and drinking water. 04/14/25: patient seen at bedside. on 2L . continue PT therapy. Objective vital signs Vital Sign Date Time Temp Pulse Resp B/P (MAP) Pulse Ox O2 Delivery O2 Flow Rate FiO2 04/14/25 17:00 98.0 115 18 107/68 (81) 97 98.0 04/14/25 08:00 Nasal Cannula* 2 28 Total Intake and Output 04/13/25 04/13/25 04/14/25 15:00 23:00 07:00 Intake Total 450 ml 760 ml Output Total 650 ml Balance 450 ml 110 ml medications Current Medications Medications Dose Ordered Sig/Angelito Route Start Time Stop Time Status Last Admin Dose Admin Ondansetron HCl 4 mg Q4HP PRN IV 04/06/25 22:00 Meropenem 50 ml @ 17 mls/hr Q8HR IV 04/07/25 06:00 UNV Docusate Sodium 100 mg BIDPRN PRN PO 04/07/25 08:30 Levothyroxine Sodium 175 mcg QAM@0600 PO 04/08/25 06:00 04/14/25 05:41 175 MCG Atorvastatin Calcium 20 mg HS PO 04/08/25 22:00 04/13/25 21:44 20 MG Acetaminophen 650 mg Q6HP PRN PO 04/07/25 17:00 04/14/25 12:36 650 MG Meropenem 50 ml @ 17 mls/hr Q8H IV 04/08/25 12:00 04/14/25 19:31 17 MLS/HR Enteral Nutritional Formula 240 ml TIDWM PO 04/08/25 18:00 04/14/25 17:47 240 ML Vancomycin HCl 0 ml @ 0 mls/hr UD IV 04/08/25 17:00 Enoxaparin Sodium 100 mg Q12HR SC 04/11/25 22:00 04/14/25 09:25 100 MG Pantoprazole Sodium 40 mg DAILY@0600 PO 04/12/25 06:00 04/14/25 05:40 40 MG Amiodarone HCl 200 mg Q12HR PO 04/11/25 15:30 04/14/25 09:25 200 MG Vancomycin HCl 250 ml @ 166.667 mls/hr Q16H IV 04/13/25 18:00 04/14/25 09:25 166.667 MLS/HR Examination General: Patient alert and oriented in person, place and time. Patient following commands. HEENT: Normocephalic, atraumatic, moist mucous membranes Respiratory/pulmonary: Clear lungs bilaterally, vesicular murmurs present in almost all lung chapman, no associated crackles or wheezes. Cardiovascular: Normal heart sounds S1 and S2 with no associated murmurs Abdomen: Abdomen nondistended, there is no pain to palpation in any of the abdominal quadrants, no palpable masses. Extremities: Warm bilateral erythema, weeping fluid from right side, warm to touch bilateral feet,Discolored and brittle toenails Peripheral Pulses: 3+ Radial (R). 3+ Radial (L). 3+ Dorsalis pedis (R). 3+ Dorsalis pedis(L) Skin: No rashes or pruritus, there is no sacral edema present at this time. Neurological: Intact cranial nerves with no focal neurologic deficits laboratory and microbiology Laboratory Tests 04/14/25 04:55 Test 04/14/25 04:55 Range/Units Serum Glucose 78 74-106 mg/dL Microbiology Date/Time Source Procedure Growth Status 04/07/25 17:25 Foot Gram Stain - Final Complete 04/07/25 17:25 Wound Culture - Final Pseudomonas aeruginosa Morganella morganii Complete 04/06/25 19:31 Voided Urine Urine Culture - Final Complete 04/06/25 19:25 Blood Blood Culture - Final NO GROWTH AFTER 5 DAYS OF INCUBATION. 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 daily Popliteal artery Aneurysm -Lovenox History of hypertension Dyslipidemia -atorvastatin 20 p.o. daily Peripheral vascular disease -Anticoagulation:Lovenox, -Atorvastatin 20mg po daily Respiratory Acute on chronic hypoxic respiratory failure (home oxygen 2 L/min) Chronic obstructive pulmonary disease exacerbation -continue oxygen via nasal cannula 2 L per minute Infection Sepsis with septic shock due to UTI and bilateral lower extremity cellulitis -IV fluids NS 75 mL/hour -IV antibiotic: Meropenem, vancomycin -MRSA screen : Negative -Blood culture: No growth till now -Urine culture : mix growth -Wound culture :pseudomonas -Wound care Bilateral lower leg cellulitis leg wound ulcer, right-sided posterior surface POA yes -IV antibiotics -Wound culture Complicated UTI -continue management of sepsis Nephrology/ CHAIM and CKD due to vasomotor nephropathy due to sepsis, CKD stage 3:improved -creatinine: 3.32, 1.25,0.78 -GFR: 18, 57 ,88 -continue IV fluid : NS 75 mL/hour -strict I&O -Nephrology consulted Anion gap metabolic acidosis with compensatory respiratory alkalosis due to sepsis/uremia -improved -anion gap: 11 on 04/08/2025 BPH Hold tamsulosin because of hypotension Oncology # Squamous cell carcinoma in ears status post 22 sessions of radiotherapy complicated by decreased food intake due to parotid gland radiation Bladder cancer status post laser treatment Bladder Calcification Seen on CT Urology consultation H/o laser ablation of bladder # History of DVT Currently on lovenox # Ex tobacco abuse (50 pack-year history of smoking), quit in 2009. #DVT prophylaxis:lovenox #PUD prophylaxis: Protonix Right IJ central line: 04/07/2025: remove 04/12/2025 Downgraded to telemetry. on 2 L. continue PT. plan for discharge planning. Goals of care has been discussed, greater than 24 minutes. Chemical code. Critical care time spent , 57 minute. Plan discussed with Dr. Kline Plan discussed with: Patient, Other (RN) My Orders My Orders Orders - LIZETTE MAI Procedure Category Date Status Time Creatinine LAB 04/15/25 Verified 04:00 Dietary Evaluation Review Comments: 1) Initiate MVI @ 1 tb qd 2) Add cardiac restriction to renal diet 3) Encourage optimal PO intake 4) Follow-up with cardiology, pulmonology, and nephrology 5) Continue to monitor I&O, labs, and skin integrity Expected Outcomes/Goals: 1) appetite and labs to improve 2) wounds to improve 3) f/u in 3-5 days LIZETTE MAI RESIDENT Apr 14, 2025 20:09
--- NOTE | 2025-04-14 23:38 | DVHPN2 ---
Subjective DOS: 04/14/2025 Patient seen and examined at bedside. Remains on supplemental oxygen Overnight events reviewed. Changes from previous H/P or p: No Changes Objective Vitals Vital Signs Date Time Temp Pulse Resp B/P (MAP) Pulse Ox O2 Delivery O2 Flow Rate FiO2 04/14/25 21:00 97.8 118 18 108/74 (85) 95 97.8 04/14/25 20:00 Room Air* 2 N/A Nasal Cannula* Intake/Output Intake and Output 04/14/25 07:00 Intake Total 1210 ml Output Total 650 ml Balance 560 ml Intake Oral 760 ml IV Total 450 ml Output Urine Total 650 ml Exam Gen.: Patient lying in bed in no apparent distress. On supplemental oxygen. Head: Normocephalic, atraumatic. Eyes: EOMI/PERRLA. Ears: Normal hearing. Normal anatomy. Neck/trachea: Trachea midline, supple. Nose: Normal external anatomy. Mouth: Moist mucous membranes. Chest: Decreased air entry bilaterally. No wheezing or rhonchi. Cardiovascular: Positive S1, positive S2. Regular rate and rhythm. Abdomen: Positive bowel sounds in all 4 quadrants. Soft, non-tender, non- distended. : Deferred. Rectal: Deferred. Skin: Warm, dry. Intact. Extremities: 2+ radial pulses bilaterally. No lower extremity edema. Neuro: Awake, alert, oriented x3. No gross motor or sensory deficits. Cranial nerves II through XII intact. Gait not assessed. Medications Current Medications Medications Dose Ordered Sig/Angelito Route Start Time Stop Time Status Last Admin Dose Admin Ondansetron HCl 4 mg Q4HP PRN IV 04/06/25 22:00 Meropenem 50 ml @ 17 mls/hr Q8HR IV 04/07/25 06:00 UNV Docusate Sodium 100 mg BIDPRN PRN PO 04/07/25 08:30 Levothyroxine Sodium 175 mcg QAM@0600 PO 04/08/25 06:00 04/14/25 05:41 175 MCG Atorvastatin Calcium 20 mg HS PO 04/08/25 22:00 04/14/25 21:34 20 MG Acetaminophen 650 mg Q6HP PRN PO 04/07/25 17:00 04/14/25 12:36 650 MG Meropenem 50 ml @ 17 mls/hr Q8H IV 04/08/25 12:00 04/14/25 19:31 17 MLS/HR Enteral Nutritional Formula 240 ml TIDWM PO 04/08/25 18:00 04/14/25 17:47 240 ML Vancomycin HCl 0 ml @ 0 mls/hr UD IV 04/08/25 17:00 Enoxaparin Sodium 100 mg Q12HR SC 04/11/25 22:00 04/14/25 21:35 100 MG Pantoprazole Sodium 40 mg DAILY@0600 PO 04/12/25 06:00 04/14/25 05:40 40 MG Amiodarone HCl 200 mg Q12HR PO 04/11/25 15:30 04/14/25 21:34 200 MG Vancomycin HCl 250 ml @ 166.667 mls/hr Q16H IV 04/13/25 18:00 04/14/25 09:25 166.667 MLS/HR Laboratory Results Laboratory Tests 04/14/25 04:55 Chemistry Test 04/14/25 04:55 Calcium Level 8.1 mg/dL (8.7-10.4) L Urinalysis Test 04/06/25 19:31 04/07/25 06:06 Urine WBC Clumps Present /hpf (None Seen) Urine Mucus Few (None Seen) Urine Color Light-yellow (Yellow) Urine Clarity Clear (Clear) Urine pH 5.0 (5.0-9.0) Urine Specific [place] 1.015 (1.001-1.035) Urine Protein Trace (Negative) H Urine Ketones Trace (Negative) Urine Blood 1+ /uL (Negative) H Urine Nitrite Negative (Negative) Urine Bilirubin Negative (Negative) Urine Urobilinogen Normal mg/dL (Negative) Urine Leukocyte Esterase 1+ /uL (Negative) Urine RBC 12 /hpf (0 - 3) Urine Microscopic WBC 8 /HPF (0-3) H Urine Squamous Epithelial Cells Few /hpf (<5) Urine Bacteria None seen /hpf (None Seen) Urine Hyaline Casts Few /lpf (0 - 2) Urine Yeast (Budding) Occasional /hpf (None Urine Creatinine 92.60 mg/dL (30.0-125.0) Urine Sodium 40 mmol/L (40-220) Urine Glucose Normal mg/dL (Normal) Microbiology Microbiology Date/Time Source Procedure Growth Status 04/07/25: Foot Gram Stain - Final Complete 04/07/25 17:25 Wound Culture - Final Pseudomonas aeruginosa Morganella morganii Complete 04/06/25 19:31 Voided Urine Urine Culture - Final Complete 04/06/25 19:25 Blood Blood Culture - Final NO GROWTH AFTER 5 DAYS OF INCUBATION. Complete Assessment/Plan Assessment/Plan Impression: Acute on chronic hypoxic respiratory failure Dependence on supplemental oxygen COPD exacerbation Metabolic encephalopathy History of DVT History of nicotine dependence Bilateral lower leg cellulitis CHAIM on CKD Events: Remains on supplemental oxygen, 2 LPM NC Taper O2 as tolerated No acute overnight events. Continue antibiotics Incentive spirometry Physical therapy. Disposition planning Patient is stable for discharge from the pulmonary standpoint. Labs and imaging reviewed. Rest of plan as noted below. Plan: Supplemental oxygen Titrate to keep O2 sats above 92%. Continue antibiotics On amiodarone PO. Off pressors, hemodynamically stable. Protonix for GI ppx Monitor renal function. Monitor electrolytes. Supplement as necessary. Monitor ins and outs. Physical Therapy evaluation. DVT prophylaxis. Prognosis: Guarded given patient's multiple co-morbidities. Rest of plan per hospitalist and other consultants. Thank you for allowing me to participate in this patient's care. Further recommendations will depend on the patient's clinical course. Please do not hesitate to contact me if you have any questions or concerns. This medical document was created using an electronic medical record system with eSnips dictation system. Although these documentations are being carefully reviewed, there may still be some phonetic and typographical changes. The errors are purely typographical, due to imperfection on the software program, and do not reflect any compromise in the patient's medical care. Plan discussed with: Patient, Other (DAWN White) Visit Coding Pulmonary Billing Provider: RIGO ALLRED MD Date of Service if different f: Apr 14, 2025 Common Visit Codes: [id number] INP/OBS CARE(HIGH) RIGO ALLRED MD Apr 14, 2025 23:38
[2025-04-15] VITALS (8 sets, daily range): BP systolic 109–141; BP diastolic 71–87; PULSE 91–126; RESP 17–20; TEMP 97.7–98.3; O2SAT 93–99
[2025-04-15 06:03] LABS: Hemoglobin 12.1 g/dL (13.5-17.5); Nucleated Red Blood Cells % 0.1 %
[2025-04-15 06:07] LABS: Hematocrit 34.9 % (41.0-53.0); Mean Corpuscular Hemoglobin 34.9 pg (28.0-32.0); Mean Corpuscular Volume 100.6 fL (80.0-100.0)
[2025-04-15 06:15] LABS: Anion Gap 9 (5-15); Carbon Dioxide 27 mmol/L (20-31); Chloride 104 mmol/L (98-107); Potassium 3.5 mmol/L (3.5-5.1); Sodium 140 mmol/L (136-145)
[2025-04-15 06:21] LABS: BUN/Creatinine Ratio 16.9 (10.0-20.0); Blood Urea Nitrogen 12 mg/dL (9-23); Glucose 84 mg/dL (74-106)
[2025-04-15 06:25] LABS: Calcium 8.5 mg/dL (8.7-10.4)
--- NOTE | 2025-04-15 17:16 | DVHPNRES ---
Progress Note Date Seen: Apr 15, 2025 Resident Creating Document: LIZETTE MAI RESIDENT Medical Necessity Reason Pt with a Central, PICC or Fol: No Subjective Review of Systems Darian Curran is a 84-year-old male patient who presents to ED with chief complaint of nonhealing bilateral lower limb wounds (right worse than left), generalized weakness, confusion and dyspnea in variable functional class which has progressively worsened in the past three weeks. Daughter came to visit father and saw lower limbs, prompting the visit to the ED. Patient was on p.o. diuretics (Lasix), with reduced oral intake of food and liquids in the past three weeks (patient believes is secondary to adverse effect of radiotherapy since it is harder for him to swallow). Patient reports history of bladder cancer, only had one visit with urologist who completed laser surgery of bladder, but did not have follow up for over a year. Patient also reports history of DVT in right lower extremity, he is currently on Eliquis. Denies any other associated symptoms including chest pain, nausea, vomiting, diarrhea. 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 [id number] is daughter). Ex tobacco abuse (50 pack-year history of smoking), quit in 2009. Denies current tobacco, alcohol and other drug abuse. Allergies: Denies Home medication: Apixaban, metoprolol, colchicine, vitamin B12, Trelegy, tamsulosin, finasteride, lisinopril, furosemide, potassium chloride, levothyroxine 04/07/2025 Patient seen and examined at bedside Patient is currently on 2 L/min of oxygen through nasal cannula Mentioned no other complaint 04/08/2025: Patient seen in [facility]. Currently requiring 2-3 L oxygen via nasal cannula. On minimal vasopressors. Able to tolerate diet. Appropriate urine output 700-800 mL. No any other new complaints. 04/09/2025: Patient seen in [facility]. Currently on baseline 2 L oxygen via nasal cannula. On vasopressor Levophed :2 mcq. Urine output at least 1 L in 24 hours. The patient's appetite improved. No any other new complaint 04/10/2025: Patient seen in [facility]. Currently on baseline 2 L oxygen via nasal cannula. Off vaso pressor. Plan for PT evaluation. The patient's appetite improved. No any other new complaint 04/12/2025: patient seen in [facility]. on 2 L O2 via NC. off vasopressor. plan for PT. downgrade to telemetry. 04/13/25: Patient seen at bedside, on 2 L oxygen, at home also 2 L oxygen, off pressors, walked with PT, downgraded to telemetry and moved to [facility]. Patient wants to be discharge. Stopped IV fluids as patient is eating and drinking water. 04/14/25: patient seen at bedside. on 2L . continue PT therapy. 04/15/25: patient seen at bedside. on 2L . continue PT therapy. De escalate abx. Objective vital signs Vital Sign Date Time Temp Pulse Resp B/P (MAP) Pulse Ox O2 Delivery O2 Flow Rate FiO2 04/15/25 13:24 97.8 04/15/25 13:00 99 18 109/72 (84) 93 04/15/25 08:00 Nasal Cannula* 1 24 Total Intake and Output 04/14/25 04/14/25 04/15/25 15:00 23:00 07:00 Intake Total 550 ml Output Total 350 ml Balance 200 ml medications Current Medications Medications Dose Ordered Sig/Angelito Route Start Time Stop Time Status Last Admin Dose Admin Ondansetron HCl 4 mg Q4HP PRN IV 04/06/25 22:00 Meropenem 50 ml @ 17 mls/hr Q8HR IV 04/07/25 06:00 UNV Docusate Sodium 100 mg BIDPRN PRN PO 04/07/25 08:30 Levothyroxine Sodium 175 mcg QAM@0600 PO 04/08/25 06:00 04/15/25 05:54 175 MCG Atorvastatin Calcium 20 mg HS PO 04/08/25 22:00 04/14/25 21:34 20 MG Acetaminophen 650 mg Q6HP PRN PO 04/07/25 17:00 04/15/25 12:24 650 MG Enteral Nutritional Formula 240 ml TIDWM PO 04/08/25 18:00 04/15/25 12:21 240 ML Pantoprazole Sodium 40 mg DAILY@0600 PO 04/12/25 06:00 04/15/25 05:54 40 MG Amiodarone HCl 200 mg Q12HR PO 04/11/25 15:30 04/15/25 08:38 200 MG Vancomycin HCl 250 ml @ 166.667 mls/hr Q16H IV 04/13/25 18:00 04/15/25 01:49 166.667 MLS/HR Levofloxacin 750 mg DAILY PO 04/16/25 10:00 Apixaban 2.5 mg BID PO 04/15/25 22:00 Examination General: Patient alert and oriented in person, place and time. Patient following commands. HEENT: Normocephalic, atraumatic, moist mucous membranes Respiratory/pulmonary: Clear lungs bilaterally, vesicular murmurs present in almost all lung chapman, no associated crackles or wheezes. Cardiovascular: Normal heart sounds S1 and S2 with no associated murmurs Abdomen: Abdomen nondistended, there is no pain to palpation in any of the abdominal quadrants, no palpable masses. Extremities: Warm bilateral erythema, weeping fluid from right side, warm to touch bilateral feet,Discolored and brittle toenails Peripheral Pulses: 3+ Radial (R). 3+ Radial (L). 3+ Dorsalis pedis (R). 3+ Dorsalis pedis(L) Skin: No rashes or pruritus, there is no sacral edema present at this time. Neurological: Intact cranial nerves with no focal neurologic deficits laboratory and microbiology Laboratory Tests 04/15/25 04:42 Test 04/15/25 04:42 Range/Units Serum Glucose 84 74-106 mg/dL Microbiology Date/Time Source Procedure Growth Status 04/07/25 17:25 Foot Gram Stain - Final Complete 04/07/25 17:25 Wound Culture - Final Pseudomonas aeruginosa Morganella morganii Complete 04/06/25 19:31 Voided Urine Urine Culture - Final Complete 04/06/25 19:25 Blood Blood Culture - Final NO GROWTH AFTER 5 DAYS OF INCUBATION. 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 daily Popliteal artery Aneurysm -stable History of hypertension Dyslipidemia -atorvastatin 20 p.o. daily Peripheral vascular disease -Anticoagulation:eliquis 2.5 mg bid -Atorvastatin 20mg po daily Respiratory Acute on chronic hypoxic respiratory failure (home oxygen 2 L/min) Chronic obstructive pulmonary disease exacerbation -continue oxygen via nasal cannula 2 L per minute Infection Sepsis with septic shock due to UTI and bilateral lower extremity cellulitis -IV fluids NS 75 mL/hour -IV antibiotic: Meropenem, vancomycin. De escalate to levofloxacin. -MRSA screen : Negative -Blood culture: No growth till now -Urine culture : mix growth -Wound culture :pseudomonas -Wound care Bilateral lower leg cellulitis leg wound ulcer, right-sided posterior surface POA yes -IV antibiotics -Wound culture Complicated UTI -continue management of sepsis Nephrology/ CHAIM and CKD due to vasomotor nephropathy due to sepsis, CKD stage 3:improved -creatinine: 3.32, 1.25,0.78 -GFR: 18, 57 ,88 -continue IV fluid : NS 75 mL/hour -strict I&O -Nephrology consulted Anion gap metabolic acidosis with compensatory respiratory alkalosis due to sepsis/uremia -improved -anion gap: 11 on 04/08/2025 BPH Hold tamsulosin because of hypotension Oncology # Squamous cell carcinoma in ears status post 22 sessions of radiotherapy complicated by decreased food intake due to parotid gland radiation Bladder cancer status post laser treatment Bladder Calcification Seen on CT Urology consultation H/o laser ablation of bladder # History of DVT Currently on lovenox # Ex tobacco abuse (50 pack-year history of smoking), quit in 2009. #DVT prophylaxis:lovenox #PUD prophylaxis: Protonix Right IJ central line: 04/07/2025: remove 04/12/2025 Downgraded to telemetry. on 2 L. continue PT. plan for discharge planning tomorrow. SS consulted for home pt. Informed the same to sylvia. Goals of care has been discussed, greater than 24 minutes. Chemical code. Critical care time spent , 46 minute. Plan discussed with Dr Kumar Plan discussed with: Patient, Other (RN) My Orders My Orders Orders - LIZETTE MAI Procedure Category Date Status Time * Service Inspector CONS 04/15/25 Transmitted Consult Levofloxacin Tablet PHA 04/16/25 In Process (Levaquin Tablet) 10:00 Apixaban (Eliquis) PHA 04/15/25 In Process 22:00 Dietary Evaluation Review Comments: 1) Initiate MVI @ 1 tb qd 2) Add cardiac restriction to renal diet 3) Encourage optimal PO intake 4) Follow-up with cardiology, pulmonology, and nephrology 5) Continue to monitor I&O, labs, and skin integrity Expected Outcomes/Goals: 1) appetite and labs to improve 2) wounds to improve 3) f/u in 3-5 days Date of Service: Apr 15, 2025 Billing Provider: BRUNO HERNANDEZ MD Common Visit Codes: [id number] CARE 30-74 MIN LIZETTE MAI Apr 15, 2025 17:16 BRUNO HERNANDEZ MD Apr 16, 2025 16:06
[2025-04-15] MEDS: levoFLOXacin 250 MG TAB PO ONE (18:04)
[2025-04-15 18:52] LABS: Chloride 105 mmol/L (98-107); Potassium 3.6 mmol/L (3.5-5.1); Sodium 139 mmol/L (136-145)
[2025-04-15 18:53] LABS: Anion Gap 9 (5-15); Carbon Dioxide 25 mmol/L (20-31)
[2025-04-15 18:58] LABS: BUN/Creatinine Ratio 11.5 (10.0-20.0); Blood Urea Nitrogen 9 mg/dL (9-23); Glucose 100 mg/dL (74-106)
[2025-04-15 19:22] LABS: Calcium 8.3 mg/dL (8.7-10.4)
[2025-04-15] MEDS: APIXABAN 2.5 MG TAB PO SCH (21:40)
[2025-04-16] VITALS (7 sets, daily range): BP systolic 102–130; BP diastolic 64–104; PULSE 97–112; RESP 17–20; TEMP 97.7–98.2; O2SAT 91–98
[2025-04-16 05:50] LABS: Hematocrit 34.9 % (41.0-53.0); Hemoglobin 12.0 g/dL (13.5-17.5); Mean Corpuscular Hemoglobin 34.5 pg (28.0-32.0); Mean Corpuscular Volume 100.5 fL (80.0-100.0); Nucleated Red Blood Cells % 0.1 %
[2025-04-16] MEDS: levoFLOXacin 250 MG TAB PO SCH (09:36)
[2025-04-16] MEDS ORDERED: AMIO200T13 PO (10:09)
[2025-04-16] MEDS ORDERED: LEVO250T58 PO (10:10)
[2025-04-16] MEDS ORDERED: LEVO50TA7 PO (10:10)
[2025-04-16] MEDS ORDERED: APIX2.5T PO (10:10)
[2025-04-16] MEDS ORDERED: PANT40T PO (10:10)
--- NOTE | 2025-04-16 10:12 | DVHDSRES ---
Discharge Summary Date of Admission Resident Creating Document: LIZETTE MAI RESIDENT Apr 06, 2025 at 21:51 Date of Discharge: Apr 16, 2025 Admitting Diagnosis nonhealing bilateral lower limb wounds Labs/Diagnostic Data: Laboratory Results Test 04/16/25 04:56 04/15/25 17:25 04/13/25 10:50 04/08/25 06:36 White Blood Count 7.6 10^3/uL (4.4-10.8) Red Blood Count 3.48 10^6/uL (4.5-5.90) Hemoglobin 12.0 g/dL (13.5-17.5) Hematocrit 34.9 % (41.0-53.0) Mean Corpuscular Volume 100.5 fL (80.0-100.0) Mean Corpuscular Hemoglobin 34.5 pg (28.0-32.0) Mean Corpuscular Hemoglobin Concent 34.3 g/dL (32.0-36.0) Red Cell Distribution Width 13.6 % (11.8-14.3) Platelet Count 150 10^3/uL (140-450) Mean Platelet Volume 8.1 fL (6.9-10.8) Neutrophils (%) (Auto) 59.7 % (37.0-80.0) Lymphocytes (%) (Auto) 23.0 % (10.0-50.0) Monocytes (%) (Auto) 10.9 % (0.0-12.0) Eosinophils (%) (Auto) 5.3 % (0.0-7.0) Basophils (%) (Auto) 1.1 % (0.0-2.0) Neutrophils # (Auto) 4.6 10 ^3/uL (1.6-8.6) Lymphocytes # (Auto) 1.8 10 ^3/uL (0.4-5.4) Monocytes # (Auto) 0.8 10 ^3/uL (0-1.3) Eosinophils # (Auto) 0.4 10 ^3/uL (0-0.8) Basophils # (Auto) 0.1 10 ^3/uL (0-0.2) Nucleated Red Blood Cells 0.1 % Sodium Level 139 mmol/L (136-145) Potassium Level 3.6 mmol/L (3.5-5.1) Chloride Level 105 mmol/L (98-107) Carbon Dioxide Level 25 mmol/L (20-31) Anion Gap 9 (5-15) Blood Urea Nitrogen 9 mg/dL (9-23) Creatinine 0.78 mg/dL (0.700-1.30) Glomerular Filtration Rate Calc 88 mL/min (>90) BUN/Creatinine Ratio 11.5 (10.0-20.0) Serum Glucose 100 mg/dL (74-106) Calcium Level 8.3 mg/dL (8.7-10.4) Vancomycin Level Trough 22.3 ug/mL (5-10) Magnesium Level 1.5 mg/dL (1.6-2.6) Influenza Type A Antigen Negative (Negative) Influenza Type B Antigen Negative (Negative) SARS-CoV-2 Antigen (Rapid) Negative (NEGATIVE) Test 04/07/25 06:06 04/07/25 03:38 04/06/25 23:25 04/06/25 20:28 Urine Color Light-yellow (Yellow) Urine Clarity Clear (Clear) Urine pH 5.0 (5.0-9.0) Urine Specific [place] 1.015 (1.001-1.035) Urine Protein Trace (Negative) Urine Ketones Trace (Negative) Urine Blood 1+ /uL (Negative) Urine Nitrite Negative (Negative) Urine Bilirubin Negative (Negative) Urine Urobilinogen Normal mg/dL (Negative) Urine Leukocyte Esterase 1+ /uL (Negative) Urine RBC 12 /hpf (0 - 3) Urine Microscopic WBC 8 /HPF (0-3) Urine Squamous Epithelial Cells Few /hpf (<5) Urine Bacteria None seen /hpf (None Seen) Urine Hyaline Casts Few /lpf (0 - 2) Urine Yeast (Budding) Occasional /hpf (None Urine Creatinine 92.60 mg/dL (30.0-125.0) Urine Sodium 40 mmol/L (40-220) Urine Glucose Normal mg/dL (Normal) Total Bilirubin 1.1 mg/dL (0.2-1.0) Aspartate Amino Transferase (AST) 11 U/L (13-40) Alanine Aminotransferase (ALT) < 9 U/L (7-40) Alkaline Phosphatase 59 U/L (46-116) Total Protein 6.5 g/dL (5.7-8.2) Albumin 3.5 g/dL (3.2-4.8) Blood Gas Specimen Type Venous Blood Gas Sample Site Vbg - n/a Blood Gas Patient Temperature 37.0 Arterial Blood Date Drawn [id number] Parmjit Test N/a Venous Blood pH 7.330 (7.320-7.430) Venous Blood pCO2 at Patient Temp 28.0 mmHg (38.0-54.0) Venous Blood pO2 at Patient Temp 44.4 mmHg (23.0-48.0) Venous Blood HCO3 14.4 mmol/L (22.0-29.0) Venous Blood Base Excess -9.8 mmol/L (-2.0-3.0) Blood Gas Liter Flow 3.00 Blood Gas Modality Nasal cannula FiO2 % 32.0 Troponin I High Sensitivity 9 ng/L (</=54) Test 04/06/25 19:31 04/06/25 19:25 Urine WBC Clumps Present /hpf (None Seen) Urine Mucus Few (None Seen) Urine Opiates Screen Neg (NEGATIVE) Urine Fentanyl Screen Neg (NEGATIVE) Urine Barbiturates Screen Neg (NEGATIVE) Urine Phencyclidine Screen Neg (NEGATIVE) Urine Amphetamines Screen Neg (NEGATIVE) Urine Benzodiazepines Screen Neg (NEGATIVE) Urine Cocaine Screen Neg (NEGATIVE) Urine Cannabinoids Screen Neg (NEGATIVE) Prothrombin Time 11.5 sec (9.3-11.8) Prothrombin Time INR 1.09 (0.9-1.15) Activated Partial Thromboplast Time 29.0 SEC (24.5-34.5) D-Dimer, Quantitative 1.77 mg/L FEU (0.0-0.49) Hemoglobin A1c 5.4 % A1C (<5.7) Lactic Acid Level 1.7 mmol/L (0.4-2.0) Phosphorus Level 7.4 mg/dL (2.4-5.1) C-Reactive Protein High Sensitivity 2.66 mg/dL (<1.0) B-Type Natriuretic Peptide 79.14 pg/mL (0-100) Triglycerides Level 202 mg/dL (< 150) Cholesterol Level 148 mg/dL (< 200) LDL Cholesterol 88 mg/dL (< 100) HDL Cholesterol 30 mg/dL (40-59) Lipase 33 U/L (12-53) Vitamin B12 Level 1411 pg/mL (211-911) Vitamin D 25-Hydroxy 64.5 ng/mL (30.0-100) Thyroid Stimulating Hormone (TSH) 0.78 uIU/mL (0.55-4.78) Other Laboratory Tests 04/16/25 04:56 04/15/25 17:25 Brief Hx & Hospital Course: H&P: Darian Curran is a 84-year-old male patient who presents to ED with chief complaint of nonhealing bilateral lower limb wounds (right worse than left), generalized weakness, confusion and dyspnea in variable functional class which has progressively worsened in the past three weeks. Daughter came to visit father and saw lower limbs, prompting the visit to the ED. Patient was on p.o. diuretics (Lasix), with reduced oral intake of food and liquids in the past three weeks (patient believes is secondary to adverse effect of radiotherapy since it is harder for him to swallow). Patient reports history of bladder cancer, only had one visit with urologist who completed laser surgery of bladder, but did not have follow up for over a year. Patient also reports history of DVT in right lower extremity, he is currently on Eliquis. Denies any other associated symptoms including chest pain, nausea, vomiting, diarrhea. 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 [id number] is daughter). Ex tobacco abuse (50 pack-year history of smoking), quit in 2009. Denies current tobacco, alcohol and other drug abuse. Allergies: Denies Home medication: Apixaban, metoprolol, colchicine, vitamin B12, Trelegy, tamsulosin, finasteride, lisinopril, furosemide, potassium chloride, levothyroxine Hospital course: Initially patient found to have septic shock likely due to lower extremity cellulitis and urinary tract infection. Started on antibiotic Zosyn and vancomycin, initially requiring vasopressor Levophed. IV fluid was given at 75 mL/hour. Over the course of hospitalization patient's vasopressor requirement came down, continued on IV antibiotics. Lower extremity cellulitis was clinically significantly improving. Meanwhile patient continued to have permanent atrial flutter with RVR, has history of tachy-bernabe syndrome with status post pacemaker. Continued on amiodarone 200 mg p.o. b.i.d., transitioned to Eliquis 2.5 mg p.o. b.i.d. and atorvastatin 20 mg p.o. daily. Patient was continued to require oxygen which is baseline at 2 L/min via nasal cannula, no signs of pneumonia. Given underlying sepsis, patient's creatinine was high, which was improved to baseline with IV fluids. Once patient was hemodynamically stable, downgraded to telemetry, patient underwent physical therapy, able to walk with limited assistance, home health with PT was arranged and patient has been discharged home with home health. All the clinical has been discussed with the patient and his daughter, they agreed with the discharge plan and they agreed that they will follow with primary care physician in outpatient setting. 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 History of hypertension Dyslipidemia Peripheral vascular disease Acute on chronic hypoxic respiratory failure (home oxygen 2 L/min) Chronic obstructive pulmonary disease exacerbation Bilateral lower leg cellulitis leg wound ulcer, right-sided posterior surface POA yes Complicated UTI CHAIM and CKD due to vasomotor nephropathy due to sepsis, CKD stage 3:improved Anion gap metabolic acidosis with compensatory respiratory alkalosis due to sepsis/uremia BPH Squamous cell carcinoma in ears status post 22 sessions of radiotherapy complicated by decreased food intake due to parotid gland radiation Bladder cancer status post laser treatment Bladder Calcification Seen on CT Urology consultation H/o laser ablation of bladder History of DVT Ex tobacco abuse (50 pack-year history of smoking), quit in 2009. Discharge Disposition: Home with Health Services Discharge Instruct/Medications Diet: Regular Activity: No Restrictions, As Tolerated Follow Up/Referral: -follow up with pcp in 2 weeks Medications: see prescription of levofloxacin amiodarone eliquis Scheduled Amiodarone HCl (Amiodarone HCl), 200 MG PO Q12HR Apixaban Base (Eliquis), 2.5 MG PO BID Levofloxacin Hemihydrate (Levofloxacin), 750 MG PO DAILY Levothyroxine Sodium (Levothyroxine Sodium), 175 MCG PO QAM@0600 Pantoprazole Sodium Sesquihydr (Pantoprazole Sodium), 40 MG PO DAILY@0600 Discharge Statement: "Patient was advised to return to the ER or call 911 if any headaches, dizziness, shortness of breath, chest pain, abdominal pain, bleeding, fevers, or worsening of medical condition. Patient was counseled about treatment plan, medications, possible side effects, patientverbalized understanding. All questions were answered to the best of my ability. This discharge took greater then 30 minutes in planning, reviewing documentation, counseling the patient, and discussing with other team members." ASSESSMENT ASSESSMENT Assessment sepsis uti lower extremity cellulitis LIZETTE MAI RESIDENT Apr 16, 2025 10:12
== END 2025-04-16 18:27 | disposition home health service (06) | DRG 871 ==
LOC: ER 19:08 → OVERFLOW 21:51 → ICU CENTRL 04-07 03:30 → DOU 04-11 09:35 → TELE-CENTR 04-13 16:58
PROVIDERS: ADMIT Internal Medicine; ATTEND Internal Medicine
PROC: 02HV33Z Insertion of Infusion Device into Superior Vena Cava, Percutaneous Approach (ICD-10-PCS; principal; 2025-04-07)
PROC: B548ZZA Ultrasonography of Superior Vena Cava, Guidance (ICD-10-PCS; 2025-04-07)
DX: A41.9 Sepsis, unspecified organism (principal); G93.41 Metabolic encephalopathy; R65.21 Severe sepsis with septic shock; N17.0 Acute kidney failure with tubular necrosis; J96.21 Acute and chronic respiratory failure with hypoxia; E87.20 Acidosis, unspecified; N39.0 Urinary tract infection, site not specified; L03.116 Cellulitis of left lower limb; L03.115 Cellulitis of right lower limb; I13.0 Hypertensive heart and chronic kidney disease with heart failure and stage 1 through stage 4 chronic kidney disease, or unspecified chronic kidney disease; J44.1 Chronic obstructive pulmonary disease with (acute) exacerbation; I48.92 Unspecified atrial flutter; L97.819 Non-pressure chronic ulcer of other part of right lower leg with unspecified severity; Z20.822 Contact with and (suspected) exposure to COVID-19; I25.10 Atherosclerotic heart disease of native coronary artery without angina pectoris; E03.9 Hypothyroidism, unspecified; N40.0 Benign prostatic hyperplasia without lower urinary tract symptoms; N18.9 Chronic kidney disease, unspecified; I48.91 Unspecified atrial fibrillation; I70.0 Atherosclerosis of aorta; I72.4 Aneurysm of artery of lower extremity; I73.9 Peripheral vascular disease, unspecified; E78.5 Hyperlipidemia, unspecified; I50.9 Heart failure, unspecified; Z85.51 Personal history of malignant neoplasm of bladder; Z86.718 Personal history of other venous thrombosis and embolism; Z87.891 Personal history of nicotine dependence; Z95.0 Presence of cardiac pacemaker; Z99.81 Dependence on supplemental oxygen; I25.2 Old myocardial infarction
CPT/HCPCS: 36415; 36556; 36600; 71045; 74176; 76775; 80048; 80053; 80061; 80202; 80307; 81001; 82306; 82565; 82570; 82607; 82805; 83036; 83605; 83690; 83735; 83880; 84100; 84300; 84443; 84484; 85025; 85379; 85610; 85730; 86141; 87040; 87077; 87081; 87086; 87186; 87205; 87426; 87804; 93005; 93306; 93925; 93971; 96365; 97110; 97116; 97163; 97530; 99291; G0378; J2003; J2185; J2470; J2543